=== PATIENT | male | born 1960 | race Caucasian/White ===

== ENCOUNTER 2021-12-15 14:00 | Observation (INO) ==
[2021-12-15] MEDS ORDERED: NS 1,000 ML IV 1,000 ML IV ONE (15:15)
[2021-12-15 15:20] VITALS: BMI 34.0
[2021-12-15 15:32] LABS: BASOPHILS % (AUTO) 0 % (0.2-1.0); EOSINOPHILS % (AUTO) 0.1 % (0.9-2.9); HEMATOCRIT 37.3 % (42.0-54.0); HEMOGLOBIN 13.3 g/dL (13.5-18.0); LYMPHOCYTES # (AUTO) 1.3 X10^3/uL (1.3-2.9); LYMPHOCYTES % (AUTO) 7.3 % (21.0-51.0); MEAN CORPUSCULAR HEMOGLOBIN 34.7 pg (27.0-34.0); MEAN CORPUSCULAR HGB CONC 35.6 g/dL (33.0-35.0); MEAN CORPUSCULAR VOLUME 97.5 fL (80.0-100.0); MEAN PLATELET VOLUME 8.6 fL (7.4-11.0); MONOCYTES # (AUTO) 0.8 x10^3/uL (0.3-0.8); MONOCYTES % (AUTO) 4.7 % (0.0-13.0); NEUTROPHILS # (AUTO) 15.3 x10^3/uL (2.2-4.8); NEUTROPHILS % (AUTO) 87.9 % (42.0-75.0); RED BLOOD COUNT 3.83 X10^6/uL (4.7-6.0); RED CELL DISTRIBUTION WIDTH 13.7 % (11.6-16.5); WHITE BLOOD COUNT 17.4 X10^3/uL (3.6-10.0)
[2021-12-15] MEDS ORDERED: TYLENOL 500 MG TAB EXTRA STRENGTH PO ONE ×2 (15:36→15:42)
--- NOTE | 2021-12-15 15:41 | DR.FEVERAD ---
HPI Time seen Time Seen by Provider: 12/15/21 14:15 PCP Primary Care Physician: Cristo GUIDO Complaints/Symptoms Chief Complaint Doctor Comments: 61 y/o male brought in via EMS for evaluation. Has a h/o chronic lower ext edema, worsened of the RLE last pm. + swelling, erythema and pain. Pain is dull, constant, does not radiate. Worse with movement and palpation. Nothing makes it better. Denies recent injury. Associated with fever, chills, generalized weakness. Denies cough, dyspnea, nausea or vomiting. Chief Complaint:: PT C/O FEVER, CHILLS, AND SWELLING ALL OVER AND TO HIS LOWER EXT. EDEMA NOTED TO LOWER EXT BILAT AND CELLULITIS TO RLE. PATIENT WENT TO SEE PCP 9 DAYS AGO FOR HIS SWELLING. PT IS NOTED TO BE SHIVERING. COVID-19 Coronavirus risk:travel/contact w/high risk person: No Has patient experienced Coronavirus symptoms: Yes Coronavirus symptoms experienced: Fever and Shortness of Breath Nurses notes reviewed Nurses Notes Review: Yes Source History Provided: Patient and EMS Mode of Arrival Mode of Arrival: EMS Timing Onset of Chief Complaint: 12/06/21 PMH PMH Past Medical History: Yes Past Medical History: Diabetes and Hypertension Past Surgical History: Yes Surgical History: Ortho Surgery Family History History of Family Medical Conditions: Yes Family Medical History: Diabetes Mellitus Social History Does patient currently use any type of tobacco product: Yes Have you used tobacco products in the last 12 months: Yes Type of Tobacco Use: Cigarettes Do you use any recreational Drugs:: No Lives With: Family Lives Where: Home Travel Risk Coronavirus risk:travel/contact w/high risk person: No Has patient experienced Coronavirus symptoms: Yes Coronavirus symptoms experienced: Fever and Shortness of Breath Infectious screening In the last 2 months have you had wt loss of >10#?: NO Have you had fever, night sweats or hemotysis?: No Have you traveled outside the country in the last 6 months?: No Isolation: Standard ROS Review of Systems Constitutional: Chills, Fever and Weakness Eyes: No Symptoms Reported ENTM: No Symptoms Reported Respiratoy: No Symptoms Reported Cardiovascular: No Symptoms Reported Gastrointestinal/Abdominal: No Symptoms Reported Genitourinary: No Symptoms Reported Neurological: No Symptoms Reported Musculoskeletal: See HPI Integumentary: See HPI Hematologic/Lymphatic: No Symptoms Reported Psychiatric: No Symptoms Reported All Other Systems: Reviewed and Negative PE Vital Signs Vitals: Temperature 100.3 F Pulse Rate [Right Radial] 108 Pulse Rate 92 Respiratory Rate 22 Blood Pressure [Right Arm] 146/65 Blood Pressure [Left Arm] 114/73 Blood Pressure 141/65 O2 Sat by Pulse Oximetry 94 General General Appearance: Alert and In No Apparent Distress Head Head Exam: Normal Inspection Eyes Eye exam: PERRL and EOMI ENT ENT Exam: Mucous Membranes Moist Neck Neck Exam: Normal Inspection; negative Tenderness Respiratory Respiratory Exam: Normal Lung Sounds Bilat; negative Accessory Muscle Use or Respiratory Distress Cardiovascular Cardiovascular Exam: Regular Rate, Normal Rhythm and Normal Heart Sounds Abdominal Exam Abdominal Exam: Normal Inspection, Normal Bowel Sounds and Soft; negative Tenderness Extremities Extremities Exam: Edema (of RLE diffusely, with erythema and tenderness. + 2+ edema. Distal NV intact. ) Back Back Exam: Normal Inspection; negative Tenderness Neurologic Neurological Exam: Alert, Oriented X3 and CN II-XII Intact; negative Motor Sensory Deficit Psychiatric Psychiatric Exam: Normal Affect Skin Skin Exam: Warm, Dry and Erythema (of RLE below the knee, diffusely) MDM Differential Diagnosis Differential Diagnosis: Sepsis (cellulitis, DVT) COURSE Treatment Treatment: 61 y/o with fever, chills and apparent RLE cellulitis, since yesterday. W/u initiiated. Given IV fluids, PO Tylenol. Will start IV Zosyn after cultures obtained. 1702 - WBC elevated, 17.4K. CMP acceptable, potassium slightly low at 3.4. Lactic acid 1.9. CXR - with some increased markings,no definitive pneumonia. Covid negative. Pt with rapidly worsening cellulitis of the RLE, recommend admission. Discussed with Dr Simon, accepts the admission. Will treat with Zosyn, Vancomycin. ROR Labs Reviewed Result Diagrams: 12/15/21 14:57 12/15/21 14:57 Laboratory: WBC 17.4 X10^3/uL (3.6-10.0) H 12/15/21 14:57 RBC 3.83 X10^6/uL (4.7-6.0) L 12/15/21 14:57 Hgb 13.3 g/dL (13.5-18.0) L 12/15/21 14:57 Hct 37.3 % (42.0-54.0) L 12/15/21 14:57 MCV 97.5 fL (80.0-100.0) 12/15/21 14:57 MCH 34.7 pg (27.0-34.0) H 12/15/21 14:57 MCHC 35.6 g/dL (33.0-35.0) H 12/15/21 14:57 RDW 13.7 % (11.6-16.5) 12/15/21 14:57 Plt Count 89 X10^3/uL (150.0-450.0) L 12/15/21 14:57 MPV 8.6 fL (7.4-11.0) 12/15/21 14:57 Neut % (Auto) 87.9 % (42.0-75.0) H 12/15/21 14:57 Lymph % (Auto) 7.3 % (21.0-51.0) L 12/15/21 14:57 [place] % (Auto) 4.7 % (0.0-13.0) 12/15/21 14:57 Eos % (Auto) 0.1 % (0.9-2.9) L 12/15/21 14:57 Baso % (Auto) 0 % (0.2-1.0) L 12/15/21 14:57 Neut # (Auto) 15.3 x10^3/uL (2.2-4.8) H 12/15/21 14:57 Lymph # (Auto) 1.3 X10^3/uL (1.3-2.9) 12/15/21 14:57 [place] # (Auto) 0.8 x10^3/uL (0.3-0.8) 12/15/21 14:57 Eos # (Auto) 0.0 x10^3/uL (0.0-0.2) 12/15/21 14:57 Baso # (Auto) 0.0 X10^3/uL (0.0-0.1) 12/15/21 14:57 Absolute Nucleated RBC 0.0 /100WBC 12/15/21 14:57 Sodium 138 mmol/L (136-145) 12/15/21 14:57 Corrected Sodium 138 mmol/L (136-145) 12/15/21 14:57 Potassium 3.4 mmol/L (3.5-5.1) L 12/15/21 14:57 Chloride 104 mmol/L (98-107) 12/15/21 14:57 Carbon Dioxide 25.4 mmol/L (21-32) 12/15/21 14:57 BUN 11 mg/dL (7-18) 12/15/21 14:57 Creatinine 1.14 mg/dL (0.70-1.30) 12/15/21 14:57 Est GFR (MDRD) Af Amer > 60 (>60) 12/15/21 14:57 Est GFR (MDRD) Non-Af > 60 (>60) 12/15/21 14:57 Glucose 117 mg/dL (65-99) H 12/15/21 14:57 Lactic Acid 1.9 mmol/L (0.4-2.0) 12/15/21 14:57 Calcium 8.2 mg/dL (8.5-10.1) L 12/15/21 14:57 Corrected Calcium 9.2 mg/dL (8.5-10.1) 12/15/21 14:57 Total Bilirubin 2.00 mg/dL (0.2-1.0) H 12/15/21 14:57 AST 108 Units/L (15-37) H 12/15/21 14:57 ALT 75 Units/L (12-78) 12/15/21 14:57 Alkaline Phosphatase 103 Units/L (46-116) 12/15/21 14:57 Total Protein 6.1 g/dL (6.4-8.2) L 12/15/21 14:57 Albumin 2.7 g/dL (3.4-5.0) L 12/15/21 14:57 Globulin 3.4 g/dL (2.5-4.5) 12/15/21 14:57 Albumin/Globulin Ratio 0.8 Ratio (1.1-2.1) L 12/15/21 14:57 SARS-CoV-2 (PCR) Negative (NEGATIVE) 12/15/21 14:29 Influenza Type A (PCR) Negative (NEGATIVE) 12/15/21 14:29 Influenza Type B (PCR) Negative (NEGATIVE) 12/15/21 14:29 RSV (PCR) Negative (NEGATIVE) 12/15/21 14:29 Opioid Opioid Risk Tool Age (Topher box if 16-45): No History of Preadolescent Sexual Abuse: No Total: 0 Total Score Risk Category: Low Risk Copyright: Desmond BOWLING predicting aberrant behaviors Discharge Plan Diagnosis Discharge Problem: Cellulitis of right lower extremity Discharge Plan Patient Disposition: 01 HOME, SELF-CARE Condition: Stable Prescriptions: No Action furosemide 40 mg tablet 1 tab PO QDAY meloxicam 15 mg tablet 1 tab PO QDAY potassium chloride 20 mEq tablet extended release 1 tab PO QDAY Health Concerns: Post Hospitalization: new medications and changes needed to prevent readmission or further decline. Pt educated and given instructions on all concerns. Plan of Treatment: Continue with present treatment and follow up plan. Pt is to keep follow up appointment as instructed and take medications as ordered. Orders to Discharge Patient Discharge Orders: Discharge (Routine); Ordered 12/15/21 Ordered By: Kolton Chappell Transfer (Routine); Ordered 12/15/21 Ordered By: Kolton Chappell Follow ups/Referrals Follow ups/Referrals: YONNY SIMON [Primary Care Provider] - 3 days Instructions Stand Alone Forms: Precautions for COVID19, [facility], Patient Portal, Social Distancing
[2021-12-15] MEDS ORDERED: ZOSYN VIAL 2.25 GRAMS 2.25 G in NS 100 ML IV 100 ML IV SCH (15:42)
[2021-12-15 15:43] LABS: ALANINE AMINOTRANSFERASE 75 Units/L (12-78); ALBUMIN 2.7 g/dL (3.4-5.0); ALKALINE PHOSPHATASE 103 Units/L (46-116); ASPARTATE AMINO TRANSFERASE 108 Units/L (15-37); BLOOD UREA NITROGEN 11 mg/dL (7-18); CALCIUM 8.2 mg/dL (8.5-10.1); CARBON DIOXIDE 25.4 mmol/L (21-32); CHLORIDE 104 mmol/L (98-107); COR CA(FOR HYPOALB) 9.2 mg/dL (8.5-10.1); COR NA(FOR HYPERGLY) 138 mmol/L (136-145); CREATININE 1.14 mg/dL (0.70-1.30); SODIUM 138 mmol/L (136-145); TOTAL PROTEIN 6.1 g/dL (6.4-8.2); eGFR NON BLACK RACES > 60 (>60)
[2021-12-15] MEDS ORDERED: NS 100 ML IV 100 ML ONE (15:45)
[2021-12-15] MEDS ORDERED: ZOSYN VIAL 3.375 GRAMS IV ONE (15:45)
--- NOTE | 2021-12-15 16:03 | VAS ---
HISTORYRight leg edemaSTUDYLOWER EXT VENOUS, UNILATERALCOMPARISONNo relevant prior studies available.TECHNIQUEGrayscale and color Doppler images of the right lower extremity.FINDINGSCommon femoral, femoral, popliteal and posterior tibial veins demonstrate normal compressibility, color Doppler flow, waveforms and augmentation with no filling defects.Soft tissues: Reactive appearing lymph node in the right inguinal region measuring 1.5 cm in short axis. Edema in the distal subcutaneous soft tissues.IMPRESSIONNo evidence of deep venous thrombus.Electronically signed by: Nahum Hansen (Dec 15, 2021 16:02:18)
--- NOTE | 2021-12-15 16:14 | RAD ---
HISTORYSOBSTUDYCHEST, 1 VIEWCOMPARISONNone availableTECHNIQUEChest radiographic imaging, AP portable projection, 1 imageFINDINGSNo cardiomegaly.No focal airspace disease.Bronchovascular crowding in the hilar regions.Mild diffuse increased interstitial markings.No pleural effusion.No pneumothorax.No acute osseous abnormality.IMPRESSIONBronchovascular crowding in the hilar regions and diffuse increased interstitial markings could represent the sequela of an atypical/viral infectious process or chronic interstitial changes. No focal consolidation.Electronically signed by: Nahum Hansen (Dec 15, 2021 16:13:13)
--- NOTE | 2021-12-15 16:55 | RAD ---
HISTORYLOWER LEG PAIN & SWELLINGSTUDYLOWER LEG, TIB/FIB RIGHTCOMPARISONNoneFINDINGSAP and lateral radiographs of the lower extremity demonstrate no evidence for acute cortical disruption. Remote proximal tibial and fibular deformities. Edema surrounding the calf.IMPRESSIONNo acute fracture.Electronically signed by: MORIAH RAMOS (Dec 15, 2021 16:53:21)
[2021-12-15] MEDS ORDERED: VANCOMYCIN IV *PREMIX 1 G/200 ML BAG 1 G/200 ML PIGGYBACK IV SCH (17:06)
[2021-12-15] MEDS ORDERED: VANCOMYCIN IV *PREMIX 1.25 G/250 ML BAG 1.25 G/250 ML PIGGYBACK IV SCH (20:00)
[2021-12-15] MEDS: NS 1,000 ML IV 1,000 ML IV SCH (20:26)
[2021-12-15] MEDS: VANCOMYCIN IV *PREMIX 1.25 G/250 ML BAG 1.25 G/250 ML PIGGYBACK IV SCH (20:26)
[2021-12-15] MEDS ORDERED: ZOSYN VIAL 3.375 GRAMS 3.375 G in NS 100 ML IV 100 ML IV SCH (22:00)
[2021-12-15] MEDS: ZOSYN VIAL 2.25 GRAMS 2.25 G in NS 100 ML IV 100 ML IV SCH (23:09)
[2021-12-16 05:27] LABS: BASOPHILS % (AUTO) 0.2 % (0.2-1.0); EOSINOPHILS # (AUTO) 0.1 x10^3/uL (0.0-0.2); EOSINOPHILS % (AUTO) 1.2 % (0.9-2.9); HEMATOCRIT 33.1 % (42.0-54.0); HEMOGLOBIN 11.9 g/dL (13.5-18.0); LYMPHOCYTES # (AUTO) 1.3 X10^3/uL (1.3-2.9); LYMPHOCYTES % (AUTO) 11.8 % (21.0-51.0); MEAN CORPUSCULAR HEMOGLOBIN 34.7 pg (27.0-34.0); MEAN CORPUSCULAR HGB CONC 35.9 g/dL (33.0-35.0); MEAN CORPUSCULAR VOLUME 96.4 fL (80.0-100.0); MEAN PLATELET VOLUME 8.9 fL (7.4-11.0); MONOCYTES # (AUTO) 0.7 x10^3/uL (0.3-0.8); MONOCYTES % (AUTO) 6.2 % (0.0-13.0); NEUTROPHILS # (AUTO) 9.1 x10^3/uL (2.2-4.8); NEUTROPHILS % (AUTO) 80.6 % (42.0-75.0); RED BLOOD COUNT 3.43 X10^6/uL (4.7-6.0); RED CELL DISTRIBUTION WIDTH 13.8 % (11.6-16.5); WHITE BLOOD COUNT 11.3 X10^3/uL (3.6-10.0)
[2021-12-16] MEDS: ZOSYN VIAL 2.25 GRAMS 2.25 G in NS 100 ML IV 100 ML IV SCH ×3 (05:33→21:22)
[2021-12-16 05:36] LABS: ALANINE AMINOTRANSFERASE 64 Units/L (12-78); ALBUMIN 2.3 g/dL (3.4-5.0); ALKALINE PHOSPHATASE 86 Units/L (46-116); ASPARTATE AMINO TRANSFERASE 94 Units/L (15-37); BLOOD UREA NITROGEN 12 mg/dL (7-18); CALCIUM 7.9 mg/dL (8.5-10.1); CARBON DIOXIDE 25.8 mmol/L (21-32); CHLORIDE 106 mmol/L (98-107); COR CA(FOR HYPOALB) 9.3 mg/dL (8.5-10.1); CREATININE 1.13 mg/dL (0.70-1.30); SODIUM 139 mmol/L (136-145); TOTAL PROTEIN 5.3 g/dL (6.4-8.2); eGFR NON BLACK RACES > 60 (>60)
[2021-12-16] MEDS: K-DUR TAB 20 MEQ PO SCH (09:25)
[2021-12-16] MEDS: VANCOMYCIN IV *PREMIX 1.25 G/250 ML BAG 1.25 G/250 ML PIGGYBACK IV SCH (09:26)
[2021-12-16] MEDS: LASIX PO SCH (09:26)
[2021-12-16] MEDS: MOBIC TAB 15 MG PO SCH (09:26)
[2021-12-16] MEDS: NS 1,000 ML IV 1,000 ML IV SCH ×2 (09:49→21:11)
[2021-12-16] MEDS: CLEOCIN 600 MG IV PREMIX 600 MG/50 ML BAG IV SCH ×3 (12:19→21:03)
[2021-12-16] MEDS ORDERED: D5W 1,000 ML IV 1,000 ML IV PRN (16:24)
[2021-12-16] MEDS ORDERED: D5W 1,000 ML IV 1,000 ML IV ONE (16:37)
[2021-12-16] MEDS ORDERED: GLUCOPHAGE XR 24-HR PO SCH (21:00)
[2021-12-17] MEDS: NS 1,000 ML IV 1,000 ML IV SCH ×3 (03:01→22:00)
[2021-12-17] MEDS: CLEOCIN 600 MG IV PREMIX 600 MG/50 ML BAG IV SCH ×3 (05:26→21:37)
[2021-12-17 05:36] LABS: BASOPHILS % (AUTO) 0.3 % (0.2-1.0); EOSINOPHILS # (AUTO) 0.2 x10^3/uL (0.0-0.2); HEMATOCRIT 31.4 % (42.0-54.0); HEMOGLOBIN 11.4 g/dL (13.5-18.0); LYMPHOCYTES # (AUTO) 1.1 X10^3/uL (1.3-2.9); LYMPHOCYTES % (AUTO) 13.8 % (21.0-51.0); MEAN CORPUSCULAR HEMOGLOBIN 34.8 pg (27.0-34.0); MEAN CORPUSCULAR HGB CONC 36.4 g/dL (33.0-35.0); MEAN CORPUSCULAR VOLUME 95.7 fL (80.0-100.0); MEAN PLATELET VOLUME 8.9 fL (7.4-11.0); MONOCYTES # (AUTO) 0.7 x10^3/uL (0.3-0.8); MONOCYTES % (AUTO) 7.9 % (0.0-13.0); NEUTROPHILS # (AUTO) 6.3 x10^3/uL (2.2-4.8); RED BLOOD COUNT 3.28 X10^6/uL (4.7-6.0); RED CELL DISTRIBUTION WIDTH 13.8 % (11.6-16.5); WHITE BLOOD COUNT 8.3 X10^3/uL (3.6-10.0)
[2021-12-17 05:39] LABS: ALANINE AMINOTRANSFERASE 48 Units/L (12-78); ALKALINE PHOSPHATASE 85 Units/L (46-116); ASPARTATE AMINO TRANSFERASE 65 Units/L (15-37); BLOOD UREA NITROGEN 13 mg/dL (7-18); CALCIUM 7.6 mg/dL (8.5-10.1); CARBON DIOXIDE 24.1 mmol/L (21-32); CHLORIDE 107 mmol/L (98-107); COR CA(FOR HYPOALB) 9.2 mg/dL (8.5-10.1); COR NA(FOR HYPERGLY) 138 mmol/L (136-145); CREATININE 1.01 mg/dL (0.70-1.30); SODIUM 137 mmol/L (136-145); eGFR NON BLACK RACES > 60 (>60)
[2021-12-17] MEDS: ZOSYN VIAL 2.25 GRAMS 2.25 G in NS 100 ML IV 100 ML IV SCH ×3 (06:30→22:27)
[2021-12-17] MEDS ORDERED: KLOR-CON PO PRN (07:45)
[2021-12-17] MEDS ORDERED: K-RIDER 10 MEQ/NS 100 ML 10 MEQ/100 ML BAG IV PRN (07:45)
[2021-12-17] MEDS ORDERED: POTASSIUM CHL 60 MEQ/NS 0.45% 500 ML IV PRN (07:45)
[2021-12-17] MEDS ORDERED: POTASSIUM CHL 40 MEQ/NS 0.45% 500 ML IV PRN (07:45)
[2021-12-17] MEDS ORDERED: K-DUR TAB 20 MEQ PO PRN (07:45)
[2021-12-17] MEDS ORDERED: MICRO K EXTEN CAP 10 MEQ PO PRN (07:45)
[2021-12-17] MEDS ORDERED: POTASSIUM CHLORIDE LIQ 20 MEQ UDC PO PRN (07:45)
[2021-12-17] MEDS ORDERED: PHARMACY COMMENT IV SCH (08:00)
[2021-12-17] MEDS: LASIX PO SCH (08:23)
[2021-12-17] MEDS: K-DUR TAB 20 MEQ PO SCH (08:23)
[2021-12-17] MEDS: MOBIC TAB 15 MG PO SCH (08:24)
[2021-12-17] MEDS ORDERED: PHARMACY COMMENT IV NR (08:30)
[2021-12-17] MEDS ORDERED: MAGNESIUM SULFATE 1 GRAM/100 mL PREMIX 1 G/100 ML BAG IV ONE (18:30)
[2021-12-17] MEDS: MAGNESIUM SULFATE 1 GRAM/100 mL PREMIX 1 G/100 ML BAG IV PRN (18:31)
[2021-12-18] MEDS: MAGNESIUM SULFATE 1 GRAM/100 mL PREMIX 1 G/100 ML BAG IV PRN (03:22)
[2021-12-18] MEDS: CLEOCIN 600 MG IV PREMIX 600 MG/50 ML BAG IV SCH (05:01)
[2021-12-18 05:13] LABS: BASOPHILS # (AUTO) 0.2 X10^3/uL (0.0-0.1); BASOPHILS % (AUTO) 3.8 % (0.2-1.0); EOSINOPHILS # (AUTO) 0.2 x10^3/uL (0.0-0.2); HEMATOCRIT 31.9 % (42.0-54.0); HEMOGLOBIN 11.7 g/dL (13.5-18.0); LYMPHOCYTES # (AUTO) 0.8 X10^3/uL (1.3-2.9); LYMPHOCYTES % (AUTO) 15.1 % (21.0-51.0); MEAN CORPUSCULAR HEMOGLOBIN 35.2 pg (27.0-34.0); MEAN CORPUSCULAR HGB CONC 36.7 g/dL (33.0-35.0); MEAN CORPUSCULAR VOLUME 95.8 fL (80.0-100.0); MEAN PLATELET VOLUME 8.7 fL (7.4-11.0); MONOCYTES # (AUTO) 0.5 x10^3/uL (0.3-0.8); MONOCYTES % (AUTO) 10.2 % (0.0-13.0); NEUTROPHILS # (AUTO) 3.5 x10^3/uL (2.2-4.8); NEUTROPHILS % (AUTO) 66.9 % (42.0-75.0); RED BLOOD COUNT 3.32 X10^6/uL (4.7-6.0); RED CELL DISTRIBUTION WIDTH 14.1 % (11.6-16.5); WHITE BLOOD COUNT 5.3 X10^3/uL (3.6-10.0)
[2021-12-18 05:22] LABS: ALANINE AMINOTRANSFERASE 39 Units/L (12-78); ALKALINE PHOSPHATASE 84 Units/L (46-116); ASPARTATE AMINO TRANSFERASE 59 Units/L (15-37); BLOOD UREA NITROGEN 12 mg/dL (7-18); CALCIUM 7.4 mg/dL (8.5-10.1); CARBON DIOXIDE 24.3 mmol/L (21-32); CHLORIDE 107 mmol/L (98-107); CREATININE 0.92 mg/dL (0.70-1.30); SODIUM 138 mmol/L (136-145); TOTAL PROTEIN 5.1 g/dL (6.4-8.2); eGFR NON BLACK RACES > 60 (>60)
[2021-12-18] MEDS: ZOSYN VIAL 2.25 GRAMS 2.25 G in NS 100 ML IV 100 ML IV SCH (05:45)
[2021-12-18] MEDS: K-DUR TAB 20 MEQ PO SCH (07:59)
[2021-12-18] MEDS: LASIX PO SCH (07:59)
[2021-12-18] MEDS: MOBIC TAB 15 MG PO SCH (08:00)
[2021-12-18] MEDS ORDERED: PHARMACY CONSULT - VANCOMYCIN XX SCH (10:00)
[2021-12-18] MEDS ORDERED: VANCOMYCIN IV *PREMIX 1.25 G/250 ML BAG 1.25 G/250 ML PIGGYBACK IV SCH (10:00)
[2021-12-18] MEDS: VANCOMYCIN IV *PREMIX 1.75 G/350 ML BAG 1.75 G/350 ML PIGGYBACK IV SCH ×2 (10:42→20:08)
--- NOTE | 2021-12-18 10:56 | PCM.PROG ---
Progress Note - Progress Note for Day of Date of Exam: 12/17/21 - Subjective Subjective: IS A 61 YEAR OLD PATIENT OF . HE IS CURRENTLY OBSERVATION STATUS FOR TREATMENT OF RIGHT LOWER EXTREMITY CELLULITIS. HE HAS HAD AN UNEVENTFUL NIGHT. HE COMPLAINTS OF MILD PAIN TO RIGHT LOWER LEG THIS MORNING. ON EXAMINATION, HEART IS REGULAR IN RATE AND RHYTHM. BILATERAL LUNGS ARE NOTED WITH DIMINISHED LUNG SOUNDS THROUGHOUT. ABDOMEN IS ROUND, SOFT, AND NON-TENDER WITH NORMAL BOWEL SOUNDS NOTED IN ALL QUADRANTS. RIGHT LOWER EXTREMITY IS NOTED WITH ERYTHEMA AND NON-PITTING EDEMA. HIS VITALS THIS MORNING ARE: 100.2-83-18-97%-152/73. LABS WERE OBTAINED. WBC 8.3, RBC 3.28, HGB 11.4, HCT 31.4, PLT COUNT 72, SODIUM 137, POTASSIUM 3.5, CHLORIDE 107, BUN 13, CREATININE 1.01, GLUCOSE 127, CALCIUM 7.6, MAGNESIUM 1.6, TOTAL BILI 1.20, AST 65, ALT 48, ALK PHOS 85, TOTAL PROTEIN 5.0, ALBUMIN 2.0. BLOOD CULTURES ARE PENDING. HE IS CURRENTLY RECEIVING NORMAL SALINE AT 80 ML/HR, VANCOMYCIN 1.75G IV Q12H, MOBIC 15MG PO DAILY, AND THE POTASSIUM AND MAGNESIUM PROTOCOLS. WE WILL CONTINUE WITH CURRENT PLAN OF CARE TODAY. OTHERWISE, WE WILL FOLLOW-UP WITH AM LABS AND CONTINUE TO MONITOR. TIME SPENT ON CLINICAL ASSESSMENT, REVIEWING LABS AND IMAGING, DECISION MAKING, AND DOCUMENTATION GREATER THAN 45 MINUTES. - Past Medical Family Social History Past Med/Fam/Surg Hx: No changes since H&P Allergies: Allergies No Known Drug Allergies Allergy (Verified 12/15/21 18:25) - Review of Systems ROS: No change since H&P - Vital Signs and I&O's Vital Signs: Temperature 98.5 F Pulse Rate [Right Radial] 85 Pulse Rate 87 Respiratory Rate 20 Blood Pressure [Right Arm] 117/62 Blood Pressure [Left Arm] 114/73 Blood Pressure 141/61 O2 Sat by Pulse Oximetry 97 Intake and Output: Intake & Output 12/15/21 12/16/21 12/17/21 12/18/21 11:59 11:59 11:59 11:59 Intake Total 1318 / 1318 2772 / 2772 2841 / 2841 Output Total 875 / 875 1500 / 1500 1150 / 1150 Balance 443 / 443 1272 / 1272 1691 / 1691 - Physical Exam Oriented: Normal Eyes: Normal Ear: Normal Nose: Normal Throat: Normal Respiratory: Diminished Cardiovascular: Normal : Normal Auscultation: Bowel Sounds: Normal Palpation: Normal Tenderness: Normal Skin: Red (RIGHT LOWER LEG ), Tender, Hot Musculoskeletal: Right, Leg, Swelling, Tender Psychiatric: Normal Mood Description: Calm Affect: Normal Speech Pattern: Clear, Delayed - Laboratory and Diagnostics Result Diagrams: 12/18/21 04:45 12/18/21 04:45 Labs: 12/15/21 14:57 Blood Blood Culture - Final Staphylococcus Aureus 12/15/21 15:10 Blood Blood Culture - Final Staphylococcus Aureus Laboratory WBC 5.3 X10^3/uL (3.6-10.0) 12/18/21 04:45 RBC 3.32 X10^6/uL (4.7-6.0) L 12/18/21 04:45 Hgb 11.7 g/dL (13.5-18.0) L 12/18/21 04:45 Hct 31.9 % (42.0-54.0) L 12/18/21 04:45 MCV 95.8 fL (80.0-100.0) 12/18/21 04:45 MCH 35.2 pg (27.0-34.0) H 12/18/21 04:45 MCHC 36.7 g/dL (33.0-35.0) H 12/18/21 04:45 RDW 14.1 % (11.6-16.5) 12/18/21 04:45 Plt Count 72 X10^3/uL (150.0-450.0) L 12/18/21 04:45 MPV 8.7 fL (7.4-11.0) 12/18/21 04:45 Neut % (Auto) 66.9 % (42.0-75.0) 12/18/21 04:45 Lymph % (Auto) 15.1 % (21.0-51.0) L 12/18/21 04:45 [place] % (Auto) 10.2 % (0.0-13.0) 12/18/21 04:45 Eos % (Auto) 4.0 % (0.9-2.9) H 12/18/21 04:45 Baso % (Auto) 3.8 % (0.2-1.0) H 12/18/21 04:45 Neut # (Auto) 3.5 x10^3/uL (2.2-4.8) 12/18/21 04:45 Lymph # (Auto) 0.8 X10^3/uL (1.3-2.9) L 12/18/21 04:45 [place] # (Auto) 0.5 x10^3/uL (0.3-0.8) 12/18/21 04:45 Eos # (Auto) 0.2 x10^3/uL (0.0-0.2) 12/18/21 04:45 Baso # (Auto) 0.2 X10^3/uL (0.0-0.1) H 12/18/21 04:45 Absolute Nucleated RBC 0.0 /100WBC 12/18/21 04:45 Sodium 138 mmol/L (136-145) 12/18/21 04:45 Corrected Sodium TNP 12/18/21 04:45 Potassium 3.3 mmol/L (3.5-5.1) L 12/18/21 04:45 Chloride 107 mmol/L (98-107) 12/18/21 04:45 Carbon Dioxide 24.3 mmol/L (21-32) 12/18/21 04:45 BUN 12 mg/dL (7-18) 12/18/21 04:45 Creatinine 0.92 mg/dL (0.70-1.30) 12/18/21 04:45 Est GFR (MDRD) Af Amer > 60 (>60) 12/18/21 04:45 Est GFR (MDRD) Non-Af > 60 (>60) 12/18/21 04:45 Glucose 103 mg/dL (65-99) H 12/18/21 04:45 POC Glucose (mg/dL) 95 mg/dL (65-99) 12/17/21 19:31 Lactic Acid 1.9 mmol/L (0.4-2.0) 12/15/21 14:57 Calcium 7.4 mg/dL (8.5-10.1) L 12/18/21 04:45 Corrected Calcium 9.0 mg/dL (8.5-10.1) 12/18/21 04:45 Magnesium 2.0 mg/dL (1.7-2.9) 12/18/21 04:45 Total Bilirubin 1.30 mg/dL (0.2-1.0) H 12/18/21 04:45 AST 59 Units/L (15-37) H 12/18/21 04:45 ALT 39 Units/L (12-78) 12/18/21 04:45 Alkaline Phosphatase 84 Units/L (46-116) 12/18/21 04:45 Total Protein 5.1 g/dL (6.4-8.2) L 12/18/21 04:45 Albumin 2.0 g/dL (3.4-5.0) L 12/18/21 04:45 Globulin 3.1 g/dL (2.5-4.5) 12/18/21 04:45 Albumin/Globulin Ratio 0.6 Ratio (1.1-2.1) L 12/18/21 04:45 SARS-CoV-2 (PCR) Negative (NEGATIVE) 12/15/21 14:29 Influenza Type A (PCR) Negative (NEGATIVE) 12/15/21 14:29 Influenza Type B (PCR) Negative (NEGATIVE) 12/15/21 14:29 RSV (PCR) Negative (NEGATIVE) 12/15/21 14:29 - Plan (1) Cellulitis of right lower extremity Status: Acute Plan: NORMAL SALINE AT 80 ML/HR, VANCOMYCIN 1.75G IV Q12H, MOBIC 15MG PO DAILY, AND THE POTASSIUM AND MAGNESIUM PROTOCOLS.
--- NOTE | 2021-12-18 11:04 | PCM.PROG ---
Progress Note - Progress Note for Day of Date of Exam: 12/18/21 - Subjective Subjective: IS A 61 YEAR OLD PATIENT OF . HE IS CURRENTLY OBSERVATION STATUS FOR TREATMENT OF RIGHT LOWER EXTREMITY CELLULITIS. HE HAS HAD AN UNEVENTFUL NIGHT. HE COMPLAINTS OF MILD PAIN TO RIGHT LOWER LEG THIS MORNING. ON EXAMINATION, HEART IS REGULAR IN RATE AND RHYTHM. BILATERAL LUNGS ARE NOTED WITH DIMINISHED LUNG SOUNDS THROUGHOUT. ABDOMEN IS ROUND, SOFT, AND NON-TENDER WITH NORMAL BOWEL SOUNDS NOTED IN ALL QUADRANTS. RIGHT LOWER EXTREMITY IS NOTED WITH ERYTHEMA AND NON-PITTING EDEMA. HIS VITALS THIS MORNING ARE: 98.5-85-20-97%-117/62. LABS WERE OBTAINED. WBC 5.3, RBC 3.32, HGB 11.7, HCT 31.9, SODIUM 138, POTASSIUM 3.3, BUN 12, CREATININE 0.92, GLUCOSE 103, CALCIUM 7.4, TOTAL BILIRUBIN 1.30, AST 59, ALT 39, ALK PHOS 84, TOTAL PROTEIN 5.1, ALBUMIN 2.0. BLOOD CULTURES ARE POSTITIVE FOR GROWTH OF STAPHYLOCOCCUS AUREUS. HE IS CURRENTLY RECEIVING NORMAL SALINE AT 80 ML/HR, VANCOMYCIN 1.75G IV Q12H, MOBIC 15MG PO DAILY, AND THE POTASSIUM AND MAGNESIUM PROTOCOLS. WE WILL CONTINUE WITH CURRENT PLAN OF CARE TODAY. OTHERWISE, WE WILL FOLLOW-UP WITH AM LABS AND CONTINUE TO MONITOR. TIME SPENT ON CLINICAL ASSESSMENT, REVIEWING LABS AND IMAGING, DECISION MAKING, AND DOCUMENTATION GREATER THAN 45 MINUTES. - Past Medical Family Social History Past Med/Fam/Surg Hx: No changes since H&P Allergies: Allergies No Known Drug Allergies Allergy (Verified 12/15/21 18:25) - Review of Systems ROS: No change since H&P - Vital Signs and I&O's Vital Signs: Temperature 98.5 F Pulse Rate [Right Radial] 85 Pulse Rate 87 Respiratory Rate 20 Blood Pressure [Right Arm] 117/62 Blood Pressure [Left Arm] 114/73 Blood Pressure 141/61 O2 Sat by Pulse Oximetry 97 Intake and Output: Intake & Output 12/15/21 12/16/21 12/17/21 12/18/21 11:59 11:59 11:59 11:59 Intake Total 1318 / 1318 2772 / 2772 2841 / 2841 Output Total 875 / 875 1500 / 1500 1150 / 1150 Balance 443 / 443 1272 / 1272 1691 / 1691 - Physical Exam Oriented: Normal Eyes: Normal Ear: Normal Nose: Normal Throat: Normal Respiratory: Diminished Cardiovascular: Normal : Normal Auscultation: Bowel Sounds: Normal Palpation: Normal Tenderness: Normal Skin: Red (RIGHT LOWER LEG ), Tender, Hot Musculoskeletal: Right, Leg, Swelling, Tender Psychiatric: Normal Mood Description: Calm Affect: Normal Speech Pattern: Clear, Delayed - Laboratory and Diagnostics Result Diagrams: 12/18/21 04:45 12/18/21 04:45 Labs: 12/15/21 14:57 Blood Blood Culture - Final Staphylococcus Aureus 12/15/21 15:10 Blood Blood Culture - Final Staphylococcus Aureus Laboratory WBC 5.3 X10^3/uL (3.6-10.0) 12/18/21 04:45 RBC 3.32 X10^6/uL (4.7-6.0) L 12/18/21 04:45 Hgb 11.7 g/dL (13.5-18.0) L 12/18/21 04:45 Hct 31.9 % (42.0-54.0) L 12/18/21 04:45 MCV 95.8 fL (80.0-100.0) 12/18/21 04:45 MCH 35.2 pg (27.0-34.0) H 12/18/21 04:45 MCHC 36.7 g/dL (33.0-35.0) H 12/18/21 04:45 RDW 14.1 % (11.6-16.5) 12/18/21 04:45 Plt Count 72 X10^3/uL (150.0-450.0) L 12/18/21 04:45 MPV 8.7 fL (7.4-11.0) 12/18/21 04:45 Neut % (Auto) 66.9 % (42.0-75.0) 12/18/21 04:45 Lymph % (Auto) 15.1 % (21.0-51.0) L 12/18/21 04:45 [place] % (Auto) 10.2 % (0.0-13.0) 12/18/21 04:45 Eos % (Auto) 4.0 % (0.9-2.9) H 12/18/21 04:45 Baso % (Auto) 3.8 % (0.2-1.0) H 12/18/21 04:45 Neut # (Auto) 3.5 x10^3/uL (2.2-4.8) 12/18/21 04:45 Lymph # (Auto) 0.8 X10^3/uL (1.3-2.9) L 12/18/21 04:45 [place] # (Auto) 0.5 x10^3/uL (0.3-0.8) 12/18/21 04:45 Eos # (Auto) 0.2 x10^3/uL (0.0-0.2) 12/18/21 04:45 Baso # (Auto) 0.2 X10^3/uL (0.0-0.1) H 12/18/21 04:45 Absolute Nucleated RBC 0.0 /100WBC 12/18/21 04:45 Sodium 138 mmol/L (136-145) 12/18/21 04:45 Corrected Sodium TNP 12/18/21 04:45 Potassium 3.3 mmol/L (3.5-5.1) L 12/18/21 04:45 Chloride 107 mmol/L (98-107) 12/18/21 04:45 Carbon Dioxide 24.3 mmol/L (21-32) 12/18/21 04:45 BUN 12 mg/dL (7-18) 12/18/21 04:45 Creatinine 0.92 mg/dL (0.70-1.30) 12/18/21 04:45 Est GFR (MDRD) Af Amer > 60 (>60) 12/18/21 04:45 Est GFR (MDRD) Non-Af > 60 (>60) 12/18/21 04:45 Glucose 103 mg/dL (65-99) H 12/18/21 04:45 POC Glucose (mg/dL) 95 mg/dL (65-99) 12/17/21 19:31 Lactic Acid 1.9 mmol/L (0.4-2.0) 12/15/21 14:57 Calcium 7.4 mg/dL (8.5-10.1) L 12/18/21 04:45 Corrected Calcium 9.0 mg/dL (8.5-10.1) 12/18/21 04:45 Magnesium 2.0 mg/dL (1.7-2.9) 12/18/21 04:45 Total Bilirubin 1.30 mg/dL (0.2-1.0) H 12/18/21 04:45 AST 59 Units/L (15-37) H 12/18/21 04:45 ALT 39 Units/L (12-78) 12/18/21 04:45 Alkaline Phosphatase 84 Units/L (46-116) 12/18/21 04:45 Total Protein 5.1 g/dL (6.4-8.2) L 12/18/21 04:45 Albumin 2.0 g/dL (3.4-5.0) L 12/18/21 04:45 Globulin 3.1 g/dL (2.5-4.5) 12/18/21 04:45 Albumin/Globulin Ratio 0.6 Ratio (1.1-2.1) L 12/18/21 04:45 SARS-CoV-2 (PCR) Negative (NEGATIVE) 12/15/21 14:29 Influenza Type A (PCR) Negative (NEGATIVE) 12/15/21 14:29 Influenza Type B (PCR) Negative (NEGATIVE) 12/15/21 14:29 RSV (PCR) Negative (NEGATIVE) 12/15/21 14:29 - Plan (1) Cellulitis of right lower extremity Status: Acute Plan: NORMAL SALINE AT 80 ML/HR, VANCOMYCIN 1.75G IV Q12H, MOBIC 15MG PO DAILY, AND THE POTASSIUM AND MAGNESIUM PROTOCOLS.
[2021-12-18] MEDS: NS 1,000 ML IV 1,000 ML IV SCH (19:02)
[2021-12-19] MEDS: NS 1,000 ML IV 1,000 ML IV SCH (01:36)
[2021-12-19 05:18] LABS: BASOPHILS % (AUTO) 0.4 % (0.2-1.0); EOSINOPHILS # (AUTO) 0.3 x10^3/uL (0.0-0.2); EOSINOPHILS % (AUTO) 5.8 % (0.9-2.9); HEMATOCRIT 34.3 % (42.0-54.0); HEMOGLOBIN 12.5 g/dL (13.5-18.0); LYMPHOCYTES # (AUTO) 1.2 X10^3/uL (1.3-2.9); LYMPHOCYTES % (AUTO) 21.8 % (21.0-51.0); MEAN CORPUSCULAR HEMOGLOBIN 35.3 pg (27.0-34.0); MEAN CORPUSCULAR HGB CONC 36.4 g/dL (33.0-35.0); MEAN CORPUSCULAR VOLUME 97.1 fL (80.0-100.0); MEAN PLATELET VOLUME 8.5 fL (7.4-11.0); MONOCYTES # (AUTO) 0.6 x10^3/uL (0.3-0.8); MONOCYTES % (AUTO) 11.9 % (0.0-13.0); NEUTROPHILS # (AUTO) 3.3 x10^3/uL (2.2-4.8); NEUTROPHILS % (AUTO) 60.1 % (42.0-75.0); RED BLOOD COUNT 3.53 X10^6/uL (4.7-6.0); RED CELL DISTRIBUTION WIDTH 13.6 % (11.6-16.5); WHITE BLOOD COUNT 5.4 X10^3/uL (3.6-10.0)
[2021-12-19 05:23] LABS: ALANINE AMINOTRANSFERASE 43 Units/L (12-78); ALBUMIN 2.1 g/dL (3.4-5.0); ALKALINE PHOSPHATASE 99 Units/L (46-116); ASPARTATE AMINO TRANSFERASE 68 Units/L (15-37); BLOOD UREA NITROGEN 10 mg/dL (7-18); CALCIUM 7.2 mg/dL (8.5-10.1); CARBON DIOXIDE 22.9 mmol/L (21-32); CHLORIDE 108 mmol/L (98-107); COR CA(FOR HYPOALB) 8.7 mg/dL (8.5-10.1); CREATININE 0.81 mg/dL (0.70-1.30); SODIUM 139 mmol/L (136-145); TOTAL PROTEIN 5.5 g/dL (6.4-8.2); eGFR NON BLACK RACES > 60 (>60)
[2021-12-19 08:08] VITALS: BP 133/77
[2021-12-19] MEDS: K-DUR TAB 20 MEQ PO SCH (08:58)
[2021-12-19] MEDS: MOBIC TAB 15 MG PO SCH (08:59)
[2021-12-19] MEDS: VANCOMYCIN IV *PREMIX 1.75 G/350 ML BAG 1.75 G/350 ML PIGGYBACK IV SCH (08:59)
[2021-12-19] MEDS ORDERED: PHARMACY COMMENT IV SCH (20:00)
== END 2021-12-19 13:20 | disposition home or self-care (01) ==
LOC: MED/SURG 14:00 → ER 14:00 → MED/SURG 17:59
PROVIDERS: ADMIT Obstetrics & Gynecology Obstetrics; ATTEND Obstetrics & Gynecology Obstetrics
DX: Z86.19 Personal history of other infectious and parasitic diseases; E11.65 Type 2 diabetes mellitus with hyperglycemia; R79.89 Other specified abnormal findings of blood chemistry; R60.0 Localized edema; A41.01 Sepsis due to Methicillin susceptible Staphylococcus aureus; L03.115 Cellulitis of right lower limb; R06.02 Shortness of breath; Z20.822 Contact with and (suspected) exposure to COVID-19; R26.89 Other abnormalities of gait and mobility; I10 Essential (primary) hypertension

== ENCOUNTER 2022-01-25 13:32 | Inpatient (IN) ==
--- NOTE | 2022-01-25 15:11 | DR.EXTPAIN ---
HPI Time seen Time Seen by Provider: 01/25/22 15:08 PCP Primary Care Physician: ALFRED RYAN Comment HPI Comment: A 61 y/o male presenting with c/o pain and swelling to his Rt. leg since 01/23/22. He has associated fever. Complaint/Symptoms Chief Complaint:: PATIENT C/O RT LEG SWELLING AND PAIN. PATIENT STATES HIS LEG MAKES HIM FEEL BAD ALL OVER COVID-19 Coronavirus risk:travel/contact w/high risk person: Yes Has patient experienced Coronavirus symptoms: Yes Coronavirus symptoms experienced: Fever Nurses notes reviewed Nurses Notes Review: Yes Source History Provided: Patient Mode of arrival Mode of Arrival: Ambulatory Timing Onset of Chief Complaint: 01/23/22 Context History of: None Associated signs and symptoms Associated Signs and Symptoms: Fever and Swelling PMH PMH Past Medical History: Yes Past Medical History: Diabetes and Hypertension Past Surgical History: Yes Surgical History: Other Family History History of Family Medical Conditions: Yes Family Medical History: Diabetes Mellitus Social History Does patient currently use any type of tobacco product: Yes Have you used tobacco products in the last 12 months: Yes Type of Tobacco Use: Cigarettes Does any household member use tobacco: Yes Alcohol Use: None Do you use any recreational Drugs:: No Lives With: Family Lives Where: Home Travel Risk Coronavirus risk:travel/contact w/high risk person: Yes Has patient experienced Coronavirus symptoms: Yes Coronavirus symptoms experienced: Fever Infectious screening In the last 2 months have you had wt loss of >10#?: NO Have you had fever, night sweats or hemotysis?: No Have you traveled outside the country in the last 6 months?: No Isolation: Standard ROS Review of Systems Constitutional: Fever Eyes: No Symptoms Reported ENTM: No Symptoms Reported Respiratoy: No Symptoms Reported Cardiovascular: No Symptoms Reported Gastrointestinal/Abdominal: No Symptoms Reported Genitourinary: No Symptoms Reported Neurological: No Symptoms Reported Musculoskeletal: Leg (swollen RLE) Integumentary: No Symptoms Reported Hematologic/Lymphatic: No Symptoms Reported Endocrine: No Symptoms Reported Psychiatric: No Symptoms Reported All Other Systems: Reviewed and Negative PE Vital Signs Vitals: Temperature 98.5 F Pulse Rate [Left Brachial] 84 Pulse Rate 102 Respiratory Rate 17 Blood Pressure [Right Arm] 124/58 Blood Pressure 128/61 O2 Sat by Pulse Oximetry 100 General Limitations: No Limitations General Appearance: Alert and In No Apparent Distress Head Head Exam: Normal Inspection, Atraumatic and Normocephalic Eyes Eye exam: Normal Appearance and EOMI ENT ENT Exam: Normal Exam, Normal Oropharynx, Normal External Ear Exam and Mucous Membranes Moist Neck Neck Exam: Normal Inspection, Full ROM and Trachea Midline Chest Chest Inspection: Normal Inspection and Symmetric Chest Wall Rise Respiratory Respiratory Exam: Normal Lung Sounds Bilat Cardiovascular Cardiovascular Exam: Regular Rate, Normal Rhythm, Normal Heart Sounds, +S1 and +S2 Abdominal Exam Abdominal Exam: Normal Inspection, Normal Bowel Sounds and Soft Lower Extremities Hip/Pelvis Exam: Normal Inspection and Full ROM Upper Leg Exam: Full ROM, Tenderness (Rt. thigh medially) and Erythema (streak medially, Rt. thigh) Knee Exam: Normal Inspection Lower Leg Exam: Tenderness (Rt. leg), Swelling (both legs, Rt. greater than Left. ), Erythema (Rt. leg), Homans' Sign (positive on Rt. ) and Other (warm to touch, Rt. leg) Ankle Exam: Normal Inspection Foot/Toe Exam: Swelling Back Back Exam: Normal Inspection and Full ROM Neurological Neurological Exam: Alert, Oriented X3 and CN II-XII Intact Psychiatric Psychiatric Exam: Normal Affect and Normal Mood Skin Skin Exam: Dry and Intact COURSE Treatment Treatment: Clinically noted with cellulitis of the RLE and the U/S was negative for DVT. I discussed her presentation and findings with the director of institutional sales Internal Medicine provider. She was admitted on IV antibiotics. Reevaluation 1st: Improved Education/Counseling Education/Counseling: Patient, Education and Counseling Educated On: Treatment, Diagnosis, Prognosis and Needs for Follow Up ROR Labs Reviewed Result Diagrams: 01/25/22 14:50 01/25/22 14:50 Laboratory: WBC 12.5 X10^3/uL (3.6-10.0) H 01/25/22 14:50 RBC 3.77 X10^6/uL (4.7-6.0) L 01/25/22 14:50 Hgb 12.9 g/dL (13.5-18.0) L 01/25/22 14:50 Hct 36.7 % (42.0-54.0) L 01/25/22 14:50 MCV 97.3 fL (80.0-100.0) 01/25/22 14:50 MCH 34.1 pg (27.0-34.0) H 01/25/22 14:50 MCHC 35.1 g/dL (33.0-35.0) H 01/25/22 14:50 RDW 14.6 % (11.6-16.5) 01/25/22 14:50 Plt Count 85 X10^3/uL (150.0-450.0) L 01/25/22 14:50 MPV 9.6 fL (7.4-11.0) 01/25/22 14:50 Neut % (Auto) 75.6 % (42.0-75.0) H 01/25/22 14:50 Lymph % (Auto) 12.8 % (21.0-51.0) L 01/25/22 14:50 [place] % (Auto) 8.6 % (0.0-13.0) 01/25/22 14:50 Eos % (Auto) 2.6 % (0.9-2.9) 01/25/22 14:50 Baso % (Auto) 0.4 % (0.2-1.0) 01/25/22 14:50 Neut # (Auto) 9.5 x10^3/uL (2.2-4.8) H 01/25/22 14:50 Lymph # (Auto) 1.6 X10^3/uL (1.3-2.9) 01/25/22 14:50 [place] # (Auto) 1.1 x10^3/uL (0.3-0.8) H 01/25/22 14:50 Eos # (Auto) 0.3 x10^3/uL (0.0-0.2) H 01/25/22 14:50 Baso # (Auto) 0.1 X10^3/uL (0.0-0.1) 01/25/22 14:50 Absolute Nucleated RBC 0.0 /100WBC 01/25/22 14:50 D-Dimer 2.56 ug/ml (0.0-0.57) H 01/25/22 14:50 Sodium 138 mmol/L (136-145) 01/25/22 14:50 Corrected Sodium 139 mmol/L (136-145) 01/25/22 14:50 Potassium 3.4 mmol/L (3.5-5.1) L 01/25/22 14:50 Chloride 104 mmol/L (98-107) 01/25/22 14:50 Carbon Dioxide 27.1 mmol/L (21-32) 01/25/22 14:50 BUN 28 mg/dL (7-18) H 01/25/22 14:50 Creatinine 1.19 mg/dL (0.70-1.30) 01/25/22 14:50 Est GFR (MDRD) Af Amer > 60 (>60) 01/25/22 14:50 Est GFR (MDRD) Non-Af > 60 (>60) 01/25/22 14:50 Glucose 131 mg/dL (65-99) H 01/25/22 14:50 Lactic Acid 2.2 mmol/L (0.4-2.0) H 01/25/22 14:50 Calcium 7.8 mg/dL (8.5-10.1) L 01/25/22 14:50 Corrected Calcium 9.2 mg/dL (8.5-10.1) 01/25/22 14:50 Total Bilirubin 1.70 mg/dL (0.2-1.0) H 01/25/22 14:50 AST 46 Units/L (15-37) H 01/25/22 14:50 ALT 39 Units/L (12-78) 01/25/22 14:50 Alkaline Phosphatase 85 Units/L (46-116) 01/25/22 14:50 Total Protein 6.1 g/dL (6.4-8.2) L 01/25/22 14:50 Albumin 2.2 g/dL (3.4-5.0) L 01/25/22 14:50 Globulin 3.9 g/dL (2.5-4.5) 01/25/22 14:50 Albumin/Globulin Ratio 0.6 Ratio (1.1-2.1) L 01/25/22 14:50 SARS-CoV-2 (PCR) Negative (NEGATIVE) 01/25/22 14:43 Opioid Opioid Risk Tool Age (Topher box if 16-45): No History of Preadolescent Sexual Abuse: No Total: 0 Total Score Risk Category: Low Risk Copyright: Desmond BOWLING predicting aberrant behaviors Discharge Plan Diagnosis Discharge Problem: Cellulitis of right lower extremity Discharge Plan Patient Disposition: 09 ADMITTED INPATIENT Condition: Stable ADDITIONAL NOTES Additional Notes Additional Notes: Name: IVON RODRÍGUEZ#: [id number]: [id number]: 1960ex: MLocation: EROrder Number(s): [id number](s):LOWER EXT VENOUS, UNILATERAL Ordering Physician: TERRI MARTIN Primary Care: YONNY SIMON Service Date: 01/25/22 Service Time: 1513 HISTORY Red swollen leg STUDY LOWER EXT VENOUS, UNILATERAL COMPARISON No relevant prior studies available. TECHNIQUE Grayscale and color Doppler images of the right lower extremity. FINDINGS Common femoral, femoral, popliteal and posterior tibial veins demonstrate normal compressibility, color Doppler flow, waveforms and augmentation with no filling defects. Soft tissues: Subcutaneous edema in the distal lower extremity. IMPRESSION No evidence of deep venous thrombus. Electronically signed by: Nahum Hansen (Jan 25, 2022 17:03:56) Report Electronically signed: 01/25/22 [id number] CC: Terri Martin
[2022-01-25] MEDS ORDERED: ROCEPHIN VIAL 1 GRAM 1 G in NS 100 ML IV 100 ML IV ONE (15:17)
[2022-01-25 15:24] LABS: BASOPHILS # (AUTO) 0.1 X10^3/uL (0.0-0.1); BASOPHILS % (AUTO) 0.4 % (0.2-1.0); EOSINOPHILS # (AUTO) 0.3 x10^3/uL (0.0-0.2); EOSINOPHILS % (AUTO) 2.6 % (0.9-2.9); HEMATOCRIT 36.7 % (42.0-54.0); HEMOGLOBIN 12.9 g/dL (13.5-18.0); LYMPHOCYTES # (AUTO) 1.6 X10^3/uL (1.3-2.9); LYMPHOCYTES % (AUTO) 12.8 % (21.0-51.0); MEAN CORPUSCULAR HEMOGLOBIN 34.1 pg (27.0-34.0); MEAN CORPUSCULAR HGB CONC 35.1 g/dL (33.0-35.0); MEAN CORPUSCULAR VOLUME 97.3 fL (80.0-100.0); MEAN PLATELET VOLUME 9.6 fL (7.4-11.0); MONOCYTES # (AUTO) 1.1 x10^3/uL (0.3-0.8); MONOCYTES % (AUTO) 8.6 % (0.0-13.0); NEUTROPHILS # (AUTO) 9.5 x10^3/uL (2.2-4.8); NEUTROPHILS % (AUTO) 75.6 % (42.0-75.0); RED BLOOD COUNT 3.77 X10^6/uL (4.7-6.0); RED CELL DISTRIBUTION WIDTH 14.6 % (11.6-16.5); WHITE BLOOD COUNT 12.5 X10^3/uL (3.6-10.0)
[2022-01-25 15:33] LABS: ALANINE AMINOTRANSFERASE 39 Units/L (12-78); ALBUMIN 2.2 g/dL (3.4-5.0); ALKALINE PHOSPHATASE 85 Units/L (46-116); ASPARTATE AMINO TRANSFERASE 46 Units/L (15-37); BLOOD UREA NITROGEN 28 mg/dL (7-18); CALCIUM 7.8 mg/dL (8.5-10.1); CARBON DIOXIDE 27.1 mmol/L (21-32); CHLORIDE 104 mmol/L (98-107); COR CA(FOR HYPOALB) 9.2 mg/dL (8.5-10.1); COR NA(FOR HYPERGLY) 139 mmol/L (136-145); CREATININE 1.19 mg/dL (0.70-1.30); SODIUM 138 mmol/L (136-145); TOTAL PROTEIN 6.1 g/dL (6.4-8.2); eGFR NON BLACK RACES > 60 (>60)
[2022-01-25] MEDS ORDERED: NS 250 ML IV 250 ML IV ONE (15:34)
[2022-01-25] MEDS ORDERED: ROCEPHIN VIAL 1 GRAM ONE (15:34)
[2022-01-25] MEDS ORDERED: NS 50 ML IV 50 ML IV ONE (15:34)
[2022-01-25 15:37] LABS: LACTIC ACID 2.2 mmol/L (0.4-2.0)
--- NOTE | 2022-01-25 17:05 | VAS ---
HISTORYRed swollen legSTUDYLOWER EXT VENOUS, UNILATERALCOMPARISONNo relevant prior studies available.TECHNIQUEGrayscale and color Doppler images of the right lower extremity.FINDINGSCommon femoral, femoral, popliteal and posterior tibial veins demonstrate normal compressibility, color Doppler flow, waveforms and augmentation with no filling defects.Soft tissues: Subcutaneous edema in the distal lower extremity.IMPRESSIONNo evidence of deep venous thrombus.Electronically signed by: Nahum Hansen (Jan 25, 2022 17:03:56)
[2022-01-25] MEDS ORDERED: PHARMACY CONSULT - VANCOMYCIN XX SCH (18:14)
[2022-01-25] MEDS ORDERED: ZOFRAN TAB 4 MG PO PRN (18:14)
[2022-01-25] MEDS ORDERED: VANCOMYCIN 1 GRAM PREMIX (ADDVANTAGE) 250 ML IV SCH (20:00)
[2022-01-25] MEDS: VANCOMYCIN IV *PREMIX 1 G/200 ML BAG 1 G/200 ML PIGGYBACK IV SCH (21:34)
[2022-01-25] MEDS: NS 1,000 ML IV 1,000 ML IV SCH (21:34)
[2022-01-25] MEDS ORDERED: NS 100 ML IV 100 ML ONE (21:55)
[2022-01-25] MEDS: ZOSYN VIAL 4.5 GRAMS 4.5 G in NS 100 ML IV + SPIKE MINIBAG* 100 ML IV SCH (23:00)
[2022-01-26] MEDS ORDERED: NS 100 ML IV 100 ML ONE (05:15)
[2022-01-26] MEDS: ZOSYN VIAL 4.5 GRAMS 4.5 G in NS 100 ML IV + SPIKE MINIBAG* 100 ML IV SCH (05:35)
[2022-01-26 06:31] LABS: ALANINE AMINOTRANSFERASE 33 Units/L (12-78); ALBUMIN 1.9 g/dL (3.4-5.0); ALKALINE PHOSPHATASE 102 Units/L (46-116); ASPARTATE AMINO TRANSFERASE 45 Units/L (15-37); BASOPHILS % (AUTO) 0.5 % (0.2-1.0); BLOOD UREA NITROGEN 22 mg/dL (7-18); CALCIUM 7.4 mg/dL (8.5-10.1); CARBON DIOXIDE 24.9 mmol/L (21-32); CHLORIDE 106 mmol/L (98-107); COR CA(FOR HYPOALB) 9.1 mg/dL (8.5-10.1); CREATININE 1.13 mg/dL (0.70-1.30); EOSINOPHILS # (AUTO) 0.4 x10^3/uL (0.0-0.2); EOSINOPHILS % (AUTO) 3.8 % (0.9-2.9); HEMATOCRIT 33.3 % (42.0-54.0); LYMPHOCYTES # (AUTO) 1.5 X10^3/uL (1.3-2.9); LYMPHOCYTES % (AUTO) 15.9 % (21.0-51.0); MEAN CORPUSCULAR HEMOGLOBIN 34.4 pg (27.0-34.0); MEAN CORPUSCULAR VOLUME 95.6 fL (80.0-100.0); MEAN PLATELET VOLUME 9.7 fL (7.4-11.0); MONOCYTES # (AUTO) 1.2 x10^3/uL (0.3-0.8); MONOCYTES % (AUTO) 13.2 % (0.0-13.0); NEUTROPHILS # (AUTO) 6.1 x10^3/uL (2.2-4.8); NEUTROPHILS % (AUTO) 66.6 % (42.0-75.0); RED BLOOD COUNT 3.48 X10^6/uL (4.7-6.0); RED CELL DISTRIBUTION WIDTH 14.6 % (11.6-16.5); SODIUM 140 mmol/L (136-145); TOTAL PROTEIN 5.5 g/dL (6.4-8.2); WHITE BLOOD COUNT 9.2 X10^3/uL (3.6-10.0); eGFR NON BLACK RACES > 60 (>60)
[2022-01-26 07:09] LABS: BAND NEUTROPHILS % 1 % (0-10); METAMYELOCYTES % 7
[2022-01-26 07:10] LABS: PLATELET MORPHOLOGY COMMENT NORMAL (NORMAL)
[2022-01-26] MEDS: VANCOMYCIN IV *PREMIX 1 G/200 ML BAG 1 G/200 ML PIGGYBACK IV SCH ×2 (08:54→22:27)
[2022-01-26] MEDS: K-DUR TAB 20 MEQ PO PRN (08:54)
[2022-01-26 12:54] LABS: MAGNESIUM 1.7 mg/dL (1.7-2.9)
[2022-01-26] MEDS: ALBUMIN HUMAN 25%- 100 ML 100 ML IV SCH (13:12)
[2022-01-26] MEDS: ZOSYN VIAL 4.5 GRAMS 4.5 G in NS 100 ML IV 100 ML IV SCH ×2 (14:17→22:30)
[2022-01-26] MEDS: NS 1,000 ML IV 1,000 ML IV SCH (19:00)
[2022-01-27] MEDS: ZOSYN VIAL 4.5 GRAMS 4.5 G in NS 100 ML IV 100 ML IV SCH ×3 (05:50→21:25)
[2022-01-27 05:52] LABS: BASOPHILS % (AUTO) 0.4 % (0.2-1.0); EOSINOPHILS # (AUTO) 0.3 x10^3/uL (0.0-0.2); HEMATOCRIT 31.4 % (42.0-54.0); HEMOGLOBIN 11.2 g/dL (13.5-18.0); LYMPHOCYTES # (AUTO) 1.3 X10^3/uL (1.3-2.9); LYMPHOCYTES % (AUTO) 17.5 % (21.0-51.0); MEAN CORPUSCULAR HGB CONC 35.6 g/dL (33.0-35.0); MEAN CORPUSCULAR VOLUME 95.3 fL (80.0-100.0); MEAN PLATELET VOLUME 9.1 fL (7.4-11.0); MONOCYTES % (AUTO) 13.1 % (0.0-13.0); NEUTROPHILS # (AUTO) 4.8 x10^3/uL (2.2-4.8); RED CELL DISTRIBUTION WIDTH 14.7 % (11.6-16.5); WHITE BLOOD COUNT 7.3 X10^3/uL (3.6-10.0)
[2022-01-27 06:14] LABS: ALANINE AMINOTRANSFERASE 27 Units/L (12-78); ALKALINE PHOSPHATASE 107 Units/L (46-116); ASPARTATE AMINO TRANSFERASE 42 Units/L (15-37); BLOOD UREA NITROGEN 15 mg/dL (7-18); CALCIUM 7.2 mg/dL (8.5-10.1); CARBON DIOXIDE 23.8 mmol/L (21-32); CHLORIDE 107 mmol/L (98-107); COR CA(FOR HYPOALB) 8.8 mg/dL (8.5-10.1); COR NA(FOR HYPERGLY) 138 mmol/L (136-145); CREATININE 0.96 mg/dL (0.70-1.30); SODIUM 138 mmol/L (136-145); TOTAL PROTEIN 5.4 g/dL (6.4-8.2); eGFR NON BLACK RACES > 60 (>60)
[2022-01-27] MEDS: K-DUR TAB 20 MEQ PO PRN (06:36)
[2022-01-27 06:46] LABS: METAMYELOCYTES % 1; MYELOCYTES % 1; PLATELET MORPHOLOGY COMMENT NORMAL (NORMAL)
[2022-01-27] MEDS ORDERED: PHARMACY COMMENT IV SCH (07:00)
[2022-01-27] MEDS: ALBUMIN HUMAN 25%- 100 ML 100 ML IV SCH (09:38)
[2022-01-27] MEDS: NS 1,000 ML IV 1,000 ML IV SCH (09:40)
[2022-01-27] MEDS: VANCOMYCIN IV *PREMIX 1 G/200 ML BAG 1 G/200 ML PIGGYBACK IV SCH ×2 (11:18→20:39)
[2022-01-27] MEDS: MORPHINE SULFATE INJ 2 MG INJ IVP PRN (19:20)
[2022-01-27 20:35] LABS: CREATININE 0.95 mg/dL (0.70-1.30); VANCOMYCIN,TROUGH 8.7 ug/mL (15-20)
[2022-01-28 05:10] LABS: BASOPHILS % (AUTO) 0.4 % (0.2-1.0); EOSINOPHILS # (AUTO) 0.3 x10^3/uL (0.0-0.2); EOSINOPHILS % (AUTO) 4.1 % (0.9-2.9); HEMATOCRIT 29.6 % (42.0-54.0); HEMOGLOBIN 10.6 g/dL (13.5-18.0); LYMPHOCYTES # (AUTO) 1.2 X10^3/uL (1.3-2.9); LYMPHOCYTES % (AUTO) 16.9 % (21.0-51.0); MEAN CORPUSCULAR HEMOGLOBIN 34.4 pg (27.0-34.0); MEAN CORPUSCULAR HGB CONC 35.7 g/dL (33.0-35.0); MEAN CORPUSCULAR VOLUME 96.1 fL (80.0-100.0); MEAN PLATELET VOLUME 8.7 fL (7.4-11.0); MONOCYTES # (AUTO) 0.8 x10^3/uL (0.3-0.8); MONOCYTES % (AUTO) 10.5 % (0.0-13.0); NEUTROPHILS # (AUTO) 4.9 x10^3/uL (2.2-4.8); NEUTROPHILS % (AUTO) 68.1 % (42.0-75.0); RED BLOOD COUNT 3.08 X10^6/uL (4.7-6.0); RED CELL DISTRIBUTION WIDTH 14.4 % (11.6-16.5); WHITE BLOOD COUNT 7.2 X10^3/uL (3.6-10.0)
[2022-01-28 05:24] LABS: ALANINE AMINOTRANSFERASE 22 Units/L (12-78); ALBUMIN 2.1 g/dL (3.4-5.0); ALKALINE PHOSPHATASE 98 Units/L (46-116); ASPARTATE AMINO TRANSFERASE 41 Units/L (15-37); BLOOD UREA NITROGEN 12 mg/dL (7-18); CALCIUM 6.9 mg/dL (8.5-10.1); CARBON DIOXIDE 24.1 mmol/L (21-32); CHLORIDE 107 mmol/L (98-107); COR CA(FOR HYPOALB) 8.4 mg/dL (8.5-10.1); COR NA(FOR HYPERGLY) 138 mmol/L (136-145); CREATININE 0.94 mg/dL (0.70-1.30); MAGNESIUM 1.7 mg/dL (1.7-2.9); SODIUM 138 mmol/L (136-145); TOTAL PROTEIN 5.3 g/dL (6.4-8.2); eGFR NON BLACK RACES > 60 (>60)
[2022-01-28] MEDS: ZOSYN VIAL 4.5 GRAMS 4.5 G in NS 100 ML IV 100 ML IV SCH ×3 (05:41→22:06)
[2022-01-28 05:44] LABS: BAND NEUTROPHILS % 1 % (0-10)
[2022-01-28 05:45] LABS: METAMYELOCYTES % 1; PLATELET MORPHOLOGY COMMENT NORMAL (NORMAL); SMUDGE CELLS SLIGHT
[2022-01-28] MEDS ORDERED: VANCOMYCIN IV *PREMIX 1 G/200 ML BAG 1 G/200 ML PIGGYBACK IV SCH (07:00)
[2022-01-28] MEDS ORDERED: PHARMACY CONSULT - VANCOMYCIN XX SCH (07:00)
[2022-01-28] MEDS: K-DUR TAB 20 MEQ PO PRN (08:53)
[2022-01-28] MEDS: NS 1,000 ML IV 1,000 ML IV SCH ×3 (09:29→12:48)
[2022-01-28] MEDS: VANCOMYCIN IV *PREMIX 1 G/200 ML BAG 1 G/200 ML PIGGYBACK IV SCH ×3 (09:30→21:00)
[2022-01-28] MEDS: ALBUMIN HUMAN 25%- 100 ML 100 ML IV SCH (09:31)
[2022-01-28] MEDS: MORPHINE SULFATE INJ 2 MG INJ IVP PRN ×2 (09:32→15:42)
--- NOTE | 2022-01-28 11:05 | PCM.PROG ---
Progress Note Progress Note for Day of Date of Exam: 01/28/22 Subjective Subjective: Pt is a 61 year old male admitted for cellulitis. This morning he still reports some pain and swelling in his right leg and foot. Erythema continues to slowly improve. No acute events overnight. Labs were obtained: Wbc 7.2, Hgb 10.6, Plt 71, Na 138, K 3.6, Creatinine 0.94, Glucose 119. Blood cultures pending. The patient does have Hepatitis C and has not seen Dr. Aragon for follow up, which is why he has elevated bilirubin and liver enzymes. Will continue with IV vancomycin. When patient has clinically improved, can then consider changing over to oral antibiotics. Keep leg elevated to help with healing and blood flow. Otherwise, continue with current treatment plan. Closely monitor and follow up labs in the morning. Past Medical Family Social History Past Med/Fam/Surg Hx: No changes since H&P Allergies: Allergies No Known Drug Allergies Allergy (Verified 12/15/21 18:25) Review of Systems ROS: No change since H&P Vital Signs and I&O's Vital Signs: Temperature 98.2 F Pulse Rate [Bilateral Radial] 82 Pulse Rate [Left Brachial] 84 Pulse Rate 102 Respiratory Rate 20 Blood Pressure [Right Arm] 131/67 Blood Pressure 128/61 O2 Sat by Pulse Oximetry 98 Intake and Output: Intake & Output 01/25/22 01/26/22 01/27/22 01/28/22 23:59 23:59 23:59 23:59 Intake Total 540 / 540 1270 / 1270 2034 / 2034 120 / 120 Output Total 1470 / 1470 1000 / 1000 Balance 540 / 540 -200 / -200 1034 / 1034 120 / 120 Physical Exam Oriented: Normal Eyes: Normal Respiratory: Normal Cardiovascular: Normal : Normal Auscultation: Bowel Sounds: Normal Palpation: Normal Skin: Red (RLE and foot) and Tender Musculoskeletal: Swelling (RLE, foot) Speech Pattern: Clear and Appropriate Laboratory and Diagnostics Result Diagrams: 01/28/22 04:45 01/28/22 04:45 Labs: 01/25/22 14:55 Blood Blood Culture - Preliminary 01/25/22 14:50 Blood Blood Culture - Preliminary Laboratory WBC 7.2 X10^3/uL (3.6-10.0) 01/28/22 04:45 RBC 3.08 X10^6/uL (4.7-6.0) L 01/28/22 04:45 Hgb 10.6 g/dL (13.5-18.0) L 01/28/22 04:45 Hct 29.6 % (42.0-54.0) L 01/28/22 04:45 MCV 96.1 fL (80.0-100.0) 01/28/22 04:45 MCH 34.4 pg (27.0-34.0) H 01/28/22 04:45 MCHC 35.7 g/dL (33.0-35.0) H 01/28/22 04:45 RDW 14.4 % (11.6-16.5) 01/28/22 04:45 Plt Count 71 X10^3/uL (150.0-450.0) L 01/28/22 04:45 Plt Count Comment Decreased (ADEQUATE) 01/28/22 04:45 MPV 8.7 fL (7.4-11.0) 01/28/22 04:45 Neut % (Auto) 68.1 % (42.0-75.0) 01/28/22 04:45 Lymph % (Auto) 16.9 % (21.0-51.0) L 01/28/22 04:45 [place] % (Auto) 10.5 % (0.0-13.0) 01/28/22 04:45 Eos % (Auto) 4.1 % (0.9-2.9) H 01/28/22 04:45 Baso % (Auto) 0.4 % (0.2-1.0) 01/28/22 04:45 Neut # (Auto) 4.9 x10^3/uL (2.2-4.8) H 01/28/22 04:45 Lymph # (Auto) 1.2 X10^3/uL (1.3-2.9) L 01/28/22 04:45 [place] # (Auto) 0.8 x10^3/uL (0.3-0.8) 01/28/22 04:45 Eos # (Auto) 0.3 x10^3/uL (0.0-0.2) H 01/28/22 04:45 Baso # (Auto) 0.0 X10^3/uL (0.0-0.1) 01/28/22 04:45 Absolute Nucleated RBC 0.0 /100WBC 01/28/22 04:45 Total Counted 100 01/28/22 04:45 Neutrophils % (Manual) 63 % (39-76) 01/28/22 04:45 Band Neutrophils % 1 % (0-10) 01/28/22 04:45 Lymphocytes % (Manual) 21 % (13-43) 01/28/22 04:45 Monocytes % (Manual) 11 % (4-9) H 01/28/22 04:45 Eosinophils % (Manual) 3 % (0-6) 01/28/22 04:45 Metamyelocytes % 1 01/28/22 04:45 Myelocytes % 1 01/27/22 05:28 Smudge Cells Slight A 01/28/22 04:45 Plt Morphology Comment Normal (NORMAL) 01/28/22 04:45 RBC Morphology Normal (NORMAL) 01/28/22 04:45 D-Dimer 2.56 ug/ml (0.0-0.57) H 01/25/22 14:50 Sodium 138 mmol/L (136-145) 01/28/22 04:45 Corrected Sodium 138 mmol/L (136-145) 01/28/22 04:45 Potassium 3.6 mmol/L (3.5-5.1) 01/28/22 04:45 Chloride 107 mmol/L (98-107) 01/28/22 04:45 Carbon Dioxide 24.1 mmol/L (21-32) 01/28/22 04:45 BUN 12 mg/dL (7-18) 01/28/22 04:45 Creatinine 0.94 mg/dL (0.70-1.30) 01/28/22 04:45 Est GFR (MDRD) Af Amer > 60 (>60) 01/28/22 04:45 Est GFR (MDRD) Non-Af > 60 (>60) 01/28/22 04:45 Glucose 119 mg/dL (65-99) H 01/28/22 04:45 Lactic Acid 2.2 mmol/L (0.4-2.0) H 01/25/22 14:50 Calcium 6.9 mg/dL (8.5-10.1) L 01/28/22 04:45 Corrected Calcium 8.4 mg/dL (8.5-10.1) L 01/28/22 04:45 Magnesium 1.7 mg/dL (1.7-2.9) 01/28/22 04:45 Total Bilirubin 2.20 mg/dL (0.2-1.0) H 01/28/22 04:45 AST 41 Units/L (15-37) H 01/28/22 04:45 ALT 22 Units/L (12-78) 01/28/22 04:45 Alkaline Phosphatase 98 Units/L (46-116) 01/28/22 04:45 Total Protein 5.3 g/dL (6.4-8.2) L 01/28/22 04:45 Albumin 2.1 g/dL (3.4-5.0) L 01/28/22 04:45 Globulin 3.2 g/dL (2.5-4.5) 01/28/22 04:45 Albumin/Globulin Ratio 0.7 Ratio (1.1-2.1) L 01/28/22 04:45 Vancomycin Trough 8.7 ug/mL (15-20) L 01/27/22 20:07 SARS-CoV-2 (PCR) Negative (NEGATIVE) 01/25/22 14:43 Plan (1) Cellulitis of right lower extremity: Status: Acute Narrative Support Text: Continue IV antibiotics:Vancomycin Blood cultures pending
[2022-01-28] MEDS: MOTRIN TAB 600 MG PO PRN (11:11)
[2022-01-28] MEDS: MAGNESIUM SULFATE 1 GRAM/100 mL PREMIX 1 G/100 ML BAG IV PRN ×2 (12:48→15:41)
[2022-01-28] MEDS ORDERED: VANCOMYCIN IV *PREMIX 1.25 G/250 ML BAG 1.25 G/250 ML PIGGYBACK IV SCH (14:00)
[2022-01-29] MEDS: NS 1,000 ML IV 1,000 ML IV SCH ×2 (02:40→13:15)
[2022-01-29 05:14] LABS: BASOPHILS # (AUTO) 0.1 X10^3/uL (0.0-0.1); BASOPHILS % (AUTO) 0.7 % (0.2-1.0); EOSINOPHILS # (AUTO) 0.5 x10^3/uL (0.0-0.2); EOSINOPHILS % (AUTO) 5.5 % (0.9-2.9); HEMATOCRIT 30.4 % (42.0-54.0); HEMOGLOBIN 10.9 g/dL (13.5-18.0); LYMPHOCYTES # (AUTO) 0.9 X10^3/uL (1.3-2.9); LYMPHOCYTES % (AUTO) 9.6 % (21.0-51.0); MEAN CORPUSCULAR HEMOGLOBIN 34.7 pg (27.0-34.0); MEAN CORPUSCULAR HGB CONC 35.8 g/dL (33.0-35.0); MEAN CORPUSCULAR VOLUME 96.9 fL (80.0-100.0); MEAN PLATELET VOLUME 8.5 fL (7.4-11.0); MONOCYTES # (AUTO) 0.4 x10^3/uL (0.3-0.8); MONOCYTES % (AUTO) 4.4 % (0.0-13.0); NEUTROPHILS # (AUTO) 7.2 x10^3/uL (2.2-4.8); NEUTROPHILS % (AUTO) 79.8 % (42.0-75.0); RED BLOOD COUNT 3.14 X10^6/uL (4.7-6.0); RED CELL DISTRIBUTION WIDTH 14.6 % (11.6-16.5); WHITE BLOOD COUNT 9.1 X10^3/uL (3.6-10.0)
[2022-01-29 05:20] LABS: CREATININE 0.79 mg/dL (0.70-1.30); VANCOMYCIN,TROUGH 11.9 ug/mL (15-20)
[2022-01-29 05:28] LABS: ALANINE AMINOTRANSFERASE 22 Units/L (12-78); ALBUMIN 2.2 g/dL (3.4-5.0); ALKALINE PHOSPHATASE 97 Units/L (46-116); ASPARTATE AMINO TRANSFERASE 41 Units/L (15-37); BLOOD UREA NITROGEN 12 mg/dL (7-18); CHLORIDE 108 mmol/L (98-107); COR CA(FOR HYPOALB) 8.4 mg/dL (8.5-10.1); COR NA(FOR HYPERGLY) 140 mmol/L (136-145); CREATININE 0.77 mg/dL (0.70-1.30); SODIUM 139 mmol/L (136-145); TOTAL PROTEIN 5.4 g/dL (6.4-8.2); eGFR NON BLACK RACES > 60 (>60)
[2022-01-29] MEDS ORDERED: PHARMACY COMMENT IV NR (05:30)
[2022-01-29 05:33] LABS: BAND NEUTROPHILS % 3 % (0-10); METAMYELOCYTES % 1; PLATELET MORPHOLOGY COMMENT NORMAL (NORMAL)
[2022-01-29] MEDS: VANCOMYCIN IV *PREMIX 1 G/200 ML BAG 1 G/200 ML PIGGYBACK IV SCH ×3 (05:46→21:02)
[2022-01-29] MEDS: ZOSYN VIAL 4.5 GRAMS 4.5 G in NS 100 ML IV 100 ML IV SCH ×3 (05:46→22:26)
[2022-01-29] MEDS: MORPHINE SULFATE INJ 2 MG INJ IVP PRN ×3 (05:55→20:16)
[2022-01-29] MEDS: MOTRIN TAB 600 MG PO PRN (08:58)
[2022-01-29] MEDS: ALBUMIN HUMAN 25%- 100 ML 100 ML IV SCH (09:01)
--- NOTE | 2022-01-29 10:23 | PCM.PROG ---
Progress Note Progress Note for Day of Date of Exam: 01/29/22 Subjective Subjective: Pt is a 61 year old male admitted for cellulitis. This morning he continues to have some pain and swelling in his right leg and foot. Erythema is gradually improving. No acute events overnight. Vancomycin dose adjusted for therapeutic level. Labs were obtained: Wbc 9.1, Hgb 10.9, Plt 75, Na 139, K 3.9, Creatinine 0.79, Glucose 121. Blood cultures pending. The patient does have Hepatitis C and has not seen Dr. Aragon for follow up, which is why he has elevated bilirubin and liver enzymes. Will continue with IV vancomycin. When patient has clinically improved, can then consider changing over to oral antibiotics. Keep leg elevated to help with healing and blood flow. Otherwise, will continue with current treatment plan. Closely monitor and follow up labs in the morning. Past Medical Family Social History Past Med/Fam/Surg Hx: No changes since H&P Allergies: Allergies No Known Drug Allergies Allergy (Verified 12/15/21 18:25) Review of Systems ROS: No change since H&P Vital Signs and I&O's Vital Signs: Temperature 98.0 F Pulse Rate [Bilateral Radial] 81 Pulse Rate [Left Brachial] 84 Pulse Rate 102 Respiratory Rate 18 Blood Pressure [Right Arm] 139/79 Blood Pressure 128/61 O2 Sat by Pulse Oximetry 100 Intake and Output: Intake & Output 01/26/22 01/27/22 01/28/22 01/29/22 23:59 23:59 23:59 23:59 Intake Total 1270 / 1270 2034 / 2034 2620 / 2620 200 / 200 Output Total 1470 / 1470 1000 / 1000 1300 / 1300 Balance -200 / -200 1034 / 1034 1320 / 1320 200 / 200 Physical Exam Oriented: Normal Eyes: Normal Respiratory: Normal Cardiovascular: Normal : Normal Auscultation: Bowel Sounds: Normal Skin: Red (RLE and foot) and Tender Musculoskeletal: Swelling (RLE, foot) Speech Pattern: Clear and Appropriate Laboratory and Diagnostics Result Diagrams: 01/29/22 04:50 01/29/22 04:50 Labs: 01/25/22 14:55 Blood Blood Culture - Preliminary 01/25/22 14:50 Blood Blood Culture - Preliminary Laboratory WBC 9.1 X10^3/uL (3.6-10.0) 01/29/22 04:50 RBC 3.14 X10^6/uL (4.7-6.0) L 01/29/22 04:50 Hgb 10.9 g/dL (13.5-18.0) L 01/29/22 04:50 Hct 30.4 % (42.0-54.0) L 01/29/22 04:50 MCV 96.9 fL (80.0-100.0) 01/29/22 04:50 MCH 34.7 pg (27.0-34.0) H 01/29/22 04:50 MCHC 35.8 g/dL (33.0-35.0) H 01/29/22 04:50 RDW 14.6 % (11.6-16.5) 01/29/22 04:50 Plt Count 75 X10^3/uL (150.0-450.0) L 01/29/22 04:50 Plt Count Comment Decreased (ADEQUATE) 01/29/22 04:50 MPV 8.5 fL (7.4-11.0) 01/29/22 04:50 Neut % (Auto) 79.8 % (42.0-75.0) H 01/29/22 04:50 Lymph % (Auto) 9.6 % (21.0-51.0) L 01/29/22 04:50 [place] % (Auto) 4.4 % (0.0-13.0) 01/29/22 04:50 Eos % (Auto) 5.5 % (0.9-2.9) H 01/29/22 04:50 Baso % (Auto) 0.7 % (0.2-1.0) 01/29/22 04:50 Neut # (Auto) 7.2 x10^3/uL (2.2-4.8) H 01/29/22 04:50 Lymph # (Auto) 0.9 X10^3/uL (1.3-2.9) L 01/29/22 04:50 [place] # (Auto) 0.4 x10^3/uL (0.3-0.8) 01/29/22 04:50 Eos # (Auto) 0.5 x10^3/uL (0.0-0.2) H 01/29/22 04:50 Baso # (Auto) 0.1 X10^3/uL (0.0-0.1) 01/29/22 04:50 Absolute Nucleated RBC 0.0 /100WBC 01/29/22 04:50 Total Counted 100 01/29/22 04:50 Neutrophils % (Manual) 70 % (39-76) 01/29/22 04:50 Band Neutrophils % 3 % (0-10) 01/29/22 04:50 Lymphocytes % (Manual) 13 % (13-43) 01/29/22 04:50 Monocytes % (Manual) 10 % (4-9) H 01/29/22 04:50 Eosinophils % (Manual) 3 % (0-6) 01/29/22 04:50 Metamyelocytes % 1 01/29/22 04:50 Myelocytes % 1 01/27/22 05:28 Smudge Cells Slight A 01/28/22 04:45 Plt Morphology Comment Normal (NORMAL) 01/29/22 04:50 RBC Morphology Normal (NORMAL) 01/29/22 04:50 D-Dimer 2.56 ug/ml (0.0-0.57) H 01/25/22 14:50 Sodium 139 mmol/L (136-145) 01/29/22 04:50 Corrected Sodium 140 mmol/L (136-145) 01/29/22 04:50 Potassium 3.9 mmol/L (3.5-5.1) 01/29/22 04:50 Chloride 108 mmol/L (98-107) H 01/29/22 04:50 Carbon Dioxide 24.0 mmol/L (21-32) 01/29/22 04:50 BUN 12 mg/dL (7-18) 01/29/22 04:50 Creatinine 0.77 mg/dL (0.70-1.30) 01/29/22 04:50 Creatinine 0.79 mg/dL (0.70-1.30) 01/29/22 04:50 Est GFR (MDRD) Af Amer > 60 (>60) 01/29/22 04:50 Est GFR (MDRD) Non-Af > 60 (>60) 01/29/22 04:50 Glucose 121 mg/dL (65-99) H 01/29/22 04:50 Lactic Acid 2.2 mmol/L (0.4-2.0) H 01/25/22 14:50 Calcium 7.0 mg/dL (8.5-10.1) L 01/29/22 04:50 Corrected Calcium 8.4 mg/dL (8.5-10.1) L 01/29/22 04:50 Magnesium 2.0 mg/dL (1.7-2.9) 01/29/22 04:50 Total Bilirubin 1.70 mg/dL (0.2-1.0) H 01/29/22 04:50 AST 41 Units/L (15-37) H 01/29/22 04:50 ALT 22 Units/L (12-78) 01/29/22 04:50 Alkaline Phosphatase 97 Units/L (46-116) 01/29/22 04:50 Total Protein 5.4 g/dL (6.4-8.2) L 01/29/22 04:50 Albumin 2.2 g/dL (3.4-5.0) L 01/29/22 04:50 Globulin 3.2 g/dL (2.5-4.5) 01/29/22 04:50 Albumin/Globulin Ratio 0.7 Ratio (1.1-2.1) L 01/29/22 04:50 Vancomycin Trough 11.9 ug/mL (15-20) L 01/29/22 04:50 SARS-CoV-2 (PCR) Negative (NEGATIVE) 01/25/22 14:43 Plan (1) Cellulitis of right lower extremity: Status: Acute
[2022-01-30] MEDS: NS 1,000 ML IV 1,000 ML IV SCH ×2 (03:14→15:58)
[2022-01-30] MEDS: VANCOMYCIN IV *PREMIX 1 G/200 ML BAG 1 G/200 ML PIGGYBACK IV SCH ×3 (05:09→21:04)
[2022-01-30 05:12] LABS: BASOPHILS % (AUTO) 0.3 % (0.2-1.0); EOSINOPHILS # (AUTO) 0.3 x10^3/uL (0.0-0.2); EOSINOPHILS % (AUTO) 3.5 % (0.9-2.9); HEMATOCRIT 28.4 % (42.0-54.0); HEMOGLOBIN 10.2 g/dL (13.5-18.0); LYMPHOCYTES # (AUTO) 1.2 X10^3/uL (1.3-2.9); LYMPHOCYTES % (AUTO) 13.9 % (21.0-51.0); MEAN CORPUSCULAR HEMOGLOBIN 34.8 pg (27.0-34.0); MEAN CORPUSCULAR VOLUME 96.5 fL (80.0-100.0); MEAN PLATELET VOLUME 8.6 fL (7.4-11.0); MONOCYTES # (AUTO) 0.5 x10^3/uL (0.3-0.8); MONOCYTES % (AUTO) 5.8 % (0.0-13.0); NEUTROPHILS # (AUTO) 6.5 x10^3/uL (2.2-4.8); NEUTROPHILS % (AUTO) 76.5 % (42.0-75.0); RED BLOOD COUNT 2.94 X10^6/uL (4.7-6.0); RED CELL DISTRIBUTION WIDTH 14.7 % (11.6-16.5); WHITE BLOOD COUNT 8.5 X10^3/uL (3.6-10.0)
[2022-01-30 05:21] LABS: ALANINE AMINOTRANSFERASE 23 Units/L (12-78); ALBUMIN 2.2 g/dL (3.4-5.0); ALKALINE PHOSPHATASE 90 Units/L (46-116); ASPARTATE AMINO TRANSFERASE 46 Units/L (15-37); BLOOD UREA NITROGEN 10 mg/dL (7-18); CALCIUM 7.1 mg/dL (8.5-10.1); CARBON DIOXIDE 25.7 mmol/L (21-32); CHLORIDE 108 mmol/L (98-107); COR CA(FOR HYPOALB) 8.5 mg/dL (8.5-10.1); CREATININE 0.72 mg/dL (0.70-1.30); SODIUM 140 mmol/L (136-145); TOTAL PROTEIN 5.3 g/dL (6.4-8.2); eGFR NON BLACK RACES > 60 (>60)
[2022-01-30] MEDS: ZOSYN VIAL 4.5 GRAMS 4.5 G in NS 100 ML IV 100 ML IV SCH ×3 (05:35→22:25)
[2022-01-30] MEDS: K-DUR TAB 20 MEQ PO PRN (05:35)
[2022-01-30] MEDS: MORPHINE SULFATE INJ 2 MG INJ IVP PRN ×2 (07:58→15:47)
[2022-01-30] MEDS: ALBUMIN HUMAN 25%- 100 ML 100 ML IV SCH (08:04)
--- NOTE | 2022-01-30 10:59 | PCM.PROG ---
Progress Note Progress Note for Day of Date of Exam: 01/30/22 Subjective Subjective: Pt is a 61 year old male admitted for cellulitis. Yesterday patient did develop a blister on his foot that drained, unfortunately no culture was obtained. This morning he continues to have some pain and swelling in his right foot but overall his erythema has improved and is resolving. No acute events overnight. Vancomycin dose adjusted for therapeutic level. Labs were obtained: Wbc 8.5, Hgb 10.2, Plt 81, Na 140, K 3.7, Creatinine 0.72, Glucose 101. Blood cultures NGTD. The patient does have Hepatitis C and has not seen Dr. Aragon for follow up, which is why he has elevated bilirubin and liver enzymes. Will continue with IV vancomycin. 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 Keep leg elevated to help with healing and blood flow. Otherwise, will continue with current treatment plan. Closely monitor and follow up labs in the morning. Past Medical Family Social History Past Med/Fam/Surg Hx: No changes since H&P Allergies: Allergies No Known Drug Allergies Allergy (Verified 12/15/21 18:25) Review of Systems ROS: No change since H&P Vital Signs and I&O's Vital Signs: Temperature 98.3 F Pulse Rate [Bilateral Radial] 83 Pulse Rate [Left Brachial] 84 Pulse Rate 102 Respiratory Rate 20 Blood Pressure [Right Arm] 132/65 Blood Pressure 128/61 O2 Sat by Pulse Oximetry 100 Intake and Output: Intake & Output 01/27/22 01/28/22 01/29/22 01/30/22 23:59 23:59 23:59 23:59 Intake Total 2033 / 2033 2620 / 2620 1340 / 1340 780 / 780 Output Total 1000 / 1000 1300 / 1300 750 / 750 450 / 450 Balance 1034 / 1034 1320 / 1320 590 / 590 330 / 330 Physical Exam Oriented: Normal Eyes: Normal Respiratory: Normal Cardiovascular: Normal : Normal Auscultation: Bowel Sounds: Normal Skin: Red (RLE and foot) and Tender Musculoskeletal: Swelling (RLE, foot) Speech Pattern: Clear and Appropriate Laboratory and Diagnostics Result Diagrams: 01/30/22 04:45 01/30/22 04:45 Labs: 01/25/22 14:55 Blood Blood Culture - Preliminary 01/25/22 14:50 Blood Blood Culture - Preliminary Laboratory WBC 8.5 X10^3/uL (3.6-10.0) 01/30/22 04:45 RBC 2.94 X10^6/uL (4.7-6.0) L 01/30/22 04:45 Hgb 10.2 g/dL (13.5-18.0) L 01/30/22 04:45 Hct 28.4 % (42.0-54.0) L 01/30/22 04:45 MCV 96.5 fL (80.0-100.0) 01/30/22 04:45 MCH 34.8 pg (27.0-34.0) H 01/30/22 04:45 MCHC 36.0 g/dL (33.0-35.0) H 01/30/22 04:45 RDW 14.7 % (11.6-16.5) 01/30/22 04:45 Plt Count 81 X10^3/uL (150.0-450.0) L 01/30/22 04:45 Plt Count Comment Decreased (ADEQUATE) 01/29/22 04:50 MPV 8.6 fL (7.4-11.0) 01/30/22 04:45 Neut % (Auto) 76.5 % (42.0-75.0) H 01/30/22 04:45 Lymph % (Auto) 13.9 % (21.0-51.0) L 01/30/22 04:45 [place] % (Auto) 5.8 % (0.0-13.0) 01/30/22 04:45 Eos % (Auto) 3.5 % (0.9-2.9) H 01/30/22 04:45 Baso % (Auto) 0.3 % (0.2-1.0) 01/30/22 04:45 Neut # (Auto) 6.5 x10^3/uL (2.2-4.8) H 01/30/22 04:45 Lymph # (Auto) 1.2 X10^3/uL (1.3-2.9) L 01/30/22 04:45 [place] # (Auto) 0.5 x10^3/uL (0.3-0.8) 01/30/22 04:45 Eos # (Auto) 0.3 x10^3/uL (0.0-0.2) H 01/30/22 04:45 Baso # (Auto) 0.0 X10^3/uL (0.0-0.1) 01/30/22 04:45 Absolute Nucleated RBC 0.0 /100WBC 01/30/22 04:45 Total Counted 100 01/29/22 04:50 Neutrophils % (Manual) 70 % (39-76) 01/29/22 04:50 Band Neutrophils % 3 % (0-10) 01/29/22 04:50 Lymphocytes % (Manual) 13 % (13-43) 01/29/22 04:50 Monocytes % (Manual) 10 % (4-9) H 01/29/22 04:50 Eosinophils % (Manual) 3 % (0-6) 01/29/22 04:50 Metamyelocytes % 1 01/29/22 04:50 Myelocytes % 1 01/27/22 05:28 Smudge Cells Slight A 01/28/22 04:45 Plt Morphology Comment Normal (NORMAL) 01/29/22 04:50 RBC Morphology Normal (NORMAL) 01/29/22 04:50 D-Dimer 2.56 ug/ml (0.0-0.57) H 01/25/22 14:50 Sodium 140 mmol/L (136-145) 01/30/22 04:45 Corrected Sodium TNP 01/30/22 04:45 Potassium 3.7 mmol/L (3.5-5.1) 01/30/22 04:45 Chloride 108 mmol/L (98-107) H 01/30/22 04:45 Carbon Dioxide 25.7 mmol/L (21-32) 01/30/22 04:45 BUN 10 mg/dL (7-18) 01/30/22 04:45 Creatinine 0.72 mg/dL (0.70-1.30) 01/30/22 04:45 Est GFR (MDRD) Af Amer > 60 (>60) 01/30/22 04:45 Est GFR (MDRD) Non-Af > 60 (>60) 01/30/22 04:45 Glucose 101 mg/dL (65-99) H 01/30/22 04:45 Lactic Acid 2.2 mmol/L (0.4-2.0) H 01/25/22 14:50 Calcium 7.1 mg/dL (8.5-10.1) L 01/30/22 04:45 Corrected Calcium 8.5 mg/dL (8.5-10.1) 01/30/22 04:45 Magnesium 2.0 mg/dL (1.7-2.9) 01/29/22 04:50 Total Bilirubin 1.70 mg/dL (0.2-1.0) H 01/30/22 04:45 AST 46 Units/L (15-37) H 01/30/22 04:45 ALT 23 Units/L (12-78) 01/30/22 04:45 Alkaline Phosphatase 90 Units/L (46-116) 01/30/22 04:45 Total Protein 5.3 g/dL (6.4-8.2) L 01/30/22 04:45 Albumin 2.2 g/dL (3.4-5.0) L 01/30/22 04:45 Globulin 3.1 g/dL (2.5-4.5) 01/30/22 04:45 Albumin/Globulin Ratio 0.7 Ratio (1.1-2.1) L 01/30/22 04:45 Vancomycin Trough 11.9 ug/mL (15-20) L 01/29/22 04:50 SARS-CoV-2 (PCR) Negative (NEGATIVE) 01/25/22 14:43 Plan (1) Cellulitis of right lower extremity: Status: Acute
[2022-01-30] MEDS: MOTRIN TAB 600 MG PO PRN (11:59)
[2022-01-30 14:40] LABS: CREATININE 0.81 mg/dL (0.70-1.30); VANCOMYCIN,TROUGH 11.6 ug/mL (15-20)
[2022-01-30] MEDS ORDERED: ZOFRAN INJ 4 MG VIAL ONE (19:36)
[2022-01-30] MEDS: ZOFRAN INJ 4 MG VIAL IVP PRN (19:40)
[2022-01-30] MEDS ORDERED: PHENERGAN INJ 25 MG IM PRN (21:03)
[2022-01-31] MEDS: NS 1,000 ML IV 1,000 ML IV SCH ×3 (02:12→17:01)
[2022-01-31] MEDS: VANCOMYCIN IV *PREMIX 1 G/200 ML BAG 1 G/200 ML PIGGYBACK IV SCH ×3 (05:00→21:12)
[2022-01-31 05:04] LABS: BASOPHILS # (AUTO) 0.1 X10^3/uL (0.0-0.1); BASOPHILS % (AUTO) 0.4 % (0.2-1.0); EOSINOPHILS # (AUTO) 0.4 x10^3/uL (0.0-0.2); EOSINOPHILS % (AUTO) 2.5 % (0.9-2.9); HEMATOCRIT 26.8 % (42.0-54.0); HEMOGLOBIN 9.4 g/dL (13.5-18.0); LYMPHOCYTES # (AUTO) 1.8 X10^3/uL (1.3-2.9); MEAN CORPUSCULAR HEMOGLOBIN 34.3 pg (27.0-34.0); MEAN CORPUSCULAR HGB CONC 34.9 g/dL (33.0-35.0); MEAN CORPUSCULAR VOLUME 98.2 fL (80.0-100.0); MEAN PLATELET VOLUME 8.1 fL (7.4-11.0); MONOCYTES # (AUTO) 0.8 x10^3/uL (0.3-0.8); MONOCYTES % (AUTO) 5.6 % (0.0-13.0); NEUTROPHILS # (AUTO) 10.9 x10^3/uL (2.2-4.8); NEUTROPHILS % (AUTO) 78.5 % (42.0-75.0); RED BLOOD COUNT 2.73 X10^6/uL (4.7-6.0); RED CELL DISTRIBUTION WIDTH 14.2 % (11.6-16.5); WHITE BLOOD COUNT 13.9 X10^3/uL (3.6-10.0)
[2022-01-31 05:22] LABS: ALANINE AMINOTRANSFERASE 24 Units/L (12-78); ALBUMIN 2.3 g/dL (3.4-5.0); ALKALINE PHOSPHATASE 93 Units/L (46-116); ASPARTATE AMINO TRANSFERASE 53 Units/L (15-37); BLOOD UREA NITROGEN 15 mg/dL (7-18); CALCIUM 7.1 mg/dL (8.5-10.1); CARBON DIOXIDE 24.9 mmol/L (21-32); CHLORIDE 110 mmol/L (98-107); COR CA(FOR HYPOALB) 8.5 mg/dL (8.5-10.1); COR NA(FOR HYPERGLY) 142 mmol/L (136-145); CREATININE 0.74 mg/dL (0.70-1.30); SODIUM 142 mmol/L (136-145); TOTAL PROTEIN 5.3 g/dL (6.4-8.2); eGFR NON BLACK RACES > 60 (>60)
[2022-01-31] MEDS: ZOSYN VIAL 4.5 GRAMS 4.5 G in NS 100 ML IV 100 ML IV SCH ×3 (06:10→22:55)
[2022-01-31] MEDS: ALBUMIN HUMAN 25%- 100 ML 100 ML IV SCH (08:16)
[2022-01-31] MEDS: MOTRIN TAB 600 MG PO PRN (11:43)
[2022-01-31 14:13] LABS: CREATININE 0.74 mg/dL (0.70-1.30); VANCOMYCIN,TROUGH 10.9 ug/mL (15-20)
[2022-01-31] MEDS ORDERED: ANUCORT-HC SUPP PR PRN (14:14)
[2022-01-31] MEDS ORDERED: PROTONIX TAB 40 MG PO SCH (15:00)
[2022-01-31] MEDS: ZOFRAN INJ 4 MG VIAL IVP PRN (21:12)
[2022-01-31] MEDS: MORPHINE SULFATE INJ 2 MG INJ IVP PRN (21:20)
[2022-02-01] MEDS: VANCOMYCIN IV *PREMIX 1 G/200 ML BAG 1 G/200 ML PIGGYBACK IV SCH ×3 (05:15→21:40)
[2022-02-01] MEDS: MORPHINE SULFATE INJ 2 MG INJ IVP PRN ×2 (05:59→15:00)
--- NOTE | 2022-02-01 06:10 | RAD ---
HISTORYAbdominal distensionSTUDYAcute abdominal seriesCOMPARISONNoneFINDINGSHypo inflation accentuates the heart size it is still likely enlarged. No congestive heart failure is noted. The lungs are hypoinflated but clear. The abdominal gas pattern is nonspecific and nonobstructive. No pneumoperitoneum is identified. No abnormal masses or abnormal calcifications are identified. Regional skeleton is intact.IMPRESSIONLungs hypoinflated but clearCardiomegaly without congestive heart failureUnremarkable flat and upright abdomen.Electronically signed by: MORIAH RAMOS (Feb 01, 2022 06:08:55)
[2022-02-01 06:30] LABS: ALANINE AMINOTRANSFERASE 27 Units/L (12-78); ALBUMIN 2.1 g/dL (3.4-5.0); ALKALINE PHOSPHATASE 80 Units/L (46-116); ASPARTATE AMINO TRANSFERASE 64 Units/L (15-37); BLOOD UREA NITROGEN 19 mg/dL (7-18); CALCIUM 7.1 mg/dL (8.5-10.1); CHLORIDE 111 mmol/L (98-107); COR CA(FOR HYPOALB) 8.6 mg/dL (8.5-10.1); CREATININE 0.76 mg/dL (0.70-1.30); SODIUM 142 mmol/L (136-145); TOTAL PROTEIN 4.7 g/dL (6.4-8.2); eGFR NON BLACK RACES > 60 (>60)
[2022-02-01 06:49] LABS: BASOPHILS # (AUTO) 0.1 X10^3/uL (0.0-0.1); EOSINOPHILS # (AUTO) 0.3 x10^3/uL (0.0-0.2); LYMPHOCYTES # (AUTO) 1.6 X10^3/uL (1.3-2.9); MONOCYTES # (AUTO) 0.5 x10^3/uL (0.3-0.8)
[2022-02-01 06:52] LABS: BASOPHILS % (AUTO) 0.5 % (0.2-1.0); EOSINOPHILS % (AUTO) 2.7 % (0.9-2.9); LYMPHOCYTES % (AUTO) 15.2 % (21.0-51.0); MEAN CORPUSCULAR HEMOGLOBIN 35.1 pg (27.0-34.0); MEAN CORPUSCULAR HGB CONC 35.8 g/dL (33.0-35.0); MEAN CORPUSCULAR VOLUME 98.1 fL (80.0-100.0); MEAN PLATELET VOLUME 7.8 fL (7.4-11.0); MONOCYTES % (AUTO) 4.4 % (0.0-13.0); NEUTROPHILS # (AUTO) 8.2 x10^3/uL (2.2-4.8); NEUTROPHILS % (AUTO) 77.2 % (42.0-75.0); RED BLOOD COUNT 1.94 X10^6/uL (4.7-6.0); RED CELL DISTRIBUTION WIDTH 14.3 % (11.6-16.5); WHITE BLOOD COUNT 10.7 X10^3/uL (3.6-10.0)
[2022-02-01 06:53] LABS: HEMOGLOBIN 6.8 g/dL (13.5-18.0)
[2022-02-01 06:54] LABS: HEMATOCRIT 19.1 % (42.0-54.0)
[2022-02-01] MEDS: ZOSYN VIAL 4.5 GRAMS 4.5 G in NS 100 ML IV 100 ML IV SCH ×3 (06:54→21:35)
[2022-02-01] MEDS: NS 1,000 ML IV 1,000 ML IV SCH ×2 (07:13→20:31)
[2022-02-01] MEDS: ALBUMIN HUMAN 25%- 100 ML 100 ML IV SCH (08:15)
[2022-02-01] MEDS: PROTONIX INJ 40 MG VIAL IVP SCH ×2 (08:16→20:32)
[2022-02-01] MEDS: CYTOTEC PO SCH ×3 (09:01→21:38)
[2022-02-01 09:38] LABS: INR 1.58 (0.8-1.3)
[2022-02-01] MEDS ORDERED: NS 250 ML IV 250 ML IV ONE (11:13)
[2022-02-01] MEDS ORDERED: DIPRIVAN VIAL 20 ML ONE (12:54)
[2022-02-01] MEDS: CARAFATE PO SCH ×2 (14:54→21:38)
[2022-02-01] MEDS: ZOFRAN INJ 4 MG VIAL IVP PRN (15:01)
--- NOTE | 2022-02-01 15:22 | RAD ---
EXAM: CHEST X-RAYHISTORY: Central line placement verification.TECHNIQUE: AP CXR dated February 01, 2022 at 2:37 PM.COMPARISON: CXR dated December 15, 2021.FINDINGS:There is a right internal jugular central venous catheter with distal tip in the right atrium. Partial withdrawal approximately 3.[address] to tip at the optimal proximal cavoatrial junction and mitigate risk of inducing cardiac ectopy. Recommend careful clinical correlation to ensure venous blood return.There is evidence for a shallow inspiratory effort with mild prominence of the bronchopulmonary markings and widening of the cardiac silhouette. Note that minimal CHF or volume overload cannot be excluded in this radiographic setting. Clinical correlation is advised.There is no gross focal lung consolidation, pleural effusion, or pneumothorax. The visualized bony structures are within normal limits.IMPRESSION:1. Right internal jugular central venous catheter with distal tip in the right atrium. Partial withdrawal approximately 3.[address] to tip at the optimal proximal cavoatrial junction and mitigate risk of inducing cardiac ectopy.2. Shallow inspiratory effort with mild prominence of the bronchopulmonary markings and widening of the cardiac silhouette (significantly improved appearance of infiltrates compared with the previous exam); DDX includes minimal CHF or volume overload in the appropriate clinical setting; consider mild bronchitis and interstitial pneumonia in the appropriate clinical setting.3. Recommend clinical correlation and appropriate follow-up x-ray evaluation to ensure complete clearance as clinically warranted.Electronically signed by: Alma Villarreal (Feb 01, 2022 15:20:47)
--- NOTE | 2022-02-01 15:32 | DR.UPDATE ---
H&P Update History and Physical Update: History and Physical reviewed and patient examined. Changes noted: NO Yes with the following:will place central line per Dr Rodriguez order. H&P Reviewed: Yes Patient was examined?: Yes Procedures (ALL) - Central Line Placement PCM.CLCO: written consent Time out performed: Yes Patient placed pm monitor/pulse ox: Yes MD prep: mask, gown, gloves, other Centrial line prep: chlorhexidine scrub, sterile drapes applied Local anesthsia used: lidocane 1% Ultrasound used for placement: Yes (Right IJ id'd via u/s and cannulation visualized) Central line lumen ininserted: triple Post procedure: sutured in place, good blood return, all ports aspirated, flushed,capped, sterile dressing applied Post procedure xray: no pneumothorax seen, other (withdrawn 3cm per radiologist reccomendation) Patient tolerated procedure: Yes Complications: none
[2022-02-01 16:51] LABS: HEMATOCRIT 21.4 % (42.0-54.0); HEMOGLOBIN 7.5 g/dL (13.5-18.0)
[2022-02-01] MEDS ORDERED: TYLENOL 325 MG TAB PO ONE (23:25)
[2022-02-02] MEDS ORDERED: NS 500 ML IV 500 ML IV ONE (02:48)
[2022-02-02] MEDS: CARAFATE PO SCH ×3 (06:16→22:00)
[2022-02-02] MEDS: CYTOTEC PO SCH ×5 (06:16→22:00)
[2022-02-02] MEDS: VANCOMYCIN IV *PREMIX 1 G/200 ML BAG 1 G/200 ML PIGGYBACK IV SCH ×3 (06:18→22:53)
[2022-02-02] MEDS: ZOSYN VIAL 4.5 GRAMS 4.5 G in NS 100 ML IV 100 ML IV SCH ×3 (06:45→21:58)
[2022-02-02 07:12] LABS: BASOPHILS # (AUTO) 0.1 X10^3/uL (0.0-0.1); BASOPHILS % (AUTO) 0.8 % (0.2-1.0); EOSINOPHILS # (AUTO) 0.2 x10^3/uL (0.0-0.2); EOSINOPHILS % (AUTO) 2.1 % (0.9-2.9); HEMATOCRIT 21.1 % (42.0-54.0); HEMOGLOBIN 7.6 g/dL (13.5-18.0); LYMPHOCYTES # (AUTO) 1.5 X10^3/uL (1.3-2.9); LYMPHOCYTES % (AUTO) 17.7 % (21.0-51.0); MEAN CORPUSCULAR HEMOGLOBIN 34.3 pg (27.0-34.0); MEAN CORPUSCULAR HGB CONC 35.8 g/dL (33.0-35.0); MEAN CORPUSCULAR VOLUME 95.7 fL (80.0-100.0); MEAN PLATELET VOLUME 7.8 fL (7.4-11.0); MONOCYTES # (AUTO) 0.4 x10^3/uL (0.3-0.8); MONOCYTES % (AUTO) 5.1 % (0.0-13.0); NEUTROPHILS # (AUTO) 6.4 x10^3/uL (2.2-4.8); NEUTROPHILS % (AUTO) 74.3 % (42.0-75.0); RED BLOOD COUNT 2.21 X10^6/uL (4.7-6.0); WHITE BLOOD COUNT 8.6 X10^3/uL (3.6-10.0)
[2022-02-02 07:22] LABS: ALANINE AMINOTRANSFERASE 31 Units/L (12-78); ALBUMIN 2.2 g/dL (3.4-5.0); ALKALINE PHOSPHATASE 70 Units/L (46-116); ASPARTATE AMINO TRANSFERASE 81 Units/L (15-37); BLOOD UREA NITROGEN 17 mg/dL (7-18); CALCIUM 6.8 mg/dL (8.5-10.1); CARBON DIOXIDE 24.5 mmol/L (21-32); CHLORIDE 109 mmol/L (98-107); COR CA(FOR HYPOALB) 8.2 mg/dL (8.5-10.1); CREATININE 0.86 mg/dL (0.70-1.30); SODIUM 139 mmol/L (136-145); TOTAL PROTEIN 4.7 g/dL (6.4-8.2); eGFR NON BLACK RACES > 60 (>60)
[2022-02-02] MEDS: NS 1,000 ML IV 1,000 ML IV SCH ×3 (08:14→22:01)
[2022-02-02] MEDS: ALBUMIN HUMAN 25%- 100 ML 100 ML IV SCH (08:50)
[2022-02-02] MEDS: PROTONIX INJ 40 MG VIAL IVP SCH ×2 (08:50→21:58)
[2022-02-02] MEDS: MORPHINE SULFATE INJ 2 MG INJ IVP PRN ×3 (09:23→21:58)
[2022-02-02] MEDS ORDERED: NS 100 ML IV 100 ML ONE (15:45)
[2022-02-02 22:14] LABS: CREATININE 0.86 mg/dL (0.70-1.30); VANCOMYCIN,TROUGH 15.5 ug/mL (15-20)
[2022-02-03] MEDS ORDERED: NS 500 ML IV 500 ML IV ONE (00:15)
[2022-02-03] MEDS ORDERED: POTASSIUM CHL 60 MEQ/NS 0.45% 500 ML IV PRN (03:52)
[2022-02-03] MEDS ORDERED: MICRO K EXTEN CAP 10 MEQ PO PRN (03:52)
[2022-02-03] MEDS ORDERED: POTASSIUM CHL 40 MEQ/NS 0.45% 500 ML IV PRN (03:52)
[2022-02-03] MEDS ORDERED: KLOR-CON PO PRN (03:52)
[2022-02-03] MEDS ORDERED: POTASSIUM CHLORIDE LIQ 20 MEQ UDC PO PRN (03:52)
[2022-02-03] MEDS ORDERED: K-RIDER 10 MEQ/NS 100 ML 10 MEQ/100 ML BAG IV PRN (03:52)
[2022-02-03] MEDS: ZOSYN VIAL 4.5 GRAMS 4.5 G in NS 100 ML IV 100 ML IV SCH ×3 (07:12→22:19)
[2022-02-03] MEDS: CARAFATE PO SCH ×3 (07:12→22:19)
[2022-02-03 07:43] LABS: BASOPHILS # (AUTO) 0.1 X10^3/uL (0.0-0.1); BASOPHILS % (AUTO) 0.7 % (0.2-1.0); EOSINOPHILS # (AUTO) 0.2 x10^3/uL (0.0-0.2); EOSINOPHILS % (AUTO) 2.3 % (0.9-2.9); HEMOGLOBIN 9.3 g/dL (13.5-18.0); LYMPHOCYTES # (AUTO) 1.6 X10^3/uL (1.3-2.9); LYMPHOCYTES % (AUTO) 16.5 % (21.0-51.0); MEAN CORPUSCULAR HEMOGLOBIN 33.3 pg (27.0-34.0); MEAN CORPUSCULAR HGB CONC 35.7 g/dL (33.0-35.0); MEAN CORPUSCULAR VOLUME 93.3 fL (80.0-100.0); MONOCYTES # (AUTO) 0.5 x10^3/uL (0.3-0.8); MONOCYTES % (AUTO) 4.9 % (0.0-13.0); NEUTROPHILS # (AUTO) 7.3 x10^3/uL (2.2-4.8); NEUTROPHILS % (AUTO) 75.6 % (42.0-75.0); RED BLOOD COUNT 2.78 X10^6/uL (4.7-6.0); RED CELL DISTRIBUTION WIDTH 17.8 % (11.6-16.5); WHITE BLOOD COUNT 9.6 X10^3/uL (3.6-10.0)
[2022-02-03] MEDS: VANCOMYCIN IV *PREMIX 1 G/200 ML BAG 1 G/200 ML PIGGYBACK IV SCH ×3 (08:00→23:30)
[2022-02-03 08:01] LABS: ALANINE AMINOTRANSFERASE 39 Units/L (12-78); ALBUMIN 2.6 g/dL (3.4-5.0); ALKALINE PHOSPHATASE 77 Units/L (46-116); ASPARTATE AMINO TRANSFERASE 95 Units/L (15-37); BLOOD UREA NITROGEN 13 mg/dL (7-18); CALCIUM 7.1 mg/dL (8.5-10.1); CARBON DIOXIDE 23.3 mmol/L (21-32); CHLORIDE 107 mmol/L (98-107); COR CA(FOR HYPOALB) 8.2 mg/dL (8.5-10.1); COR NA(FOR HYPERGLY) 138 mmol/L (136-145); CREATININE 0.89 mg/dL (0.70-1.30); SODIUM 137 mmol/L (136-145); TOTAL PROTEIN 5.4 g/dL (6.4-8.2); eGFR NON BLACK RACES > 60 (>60)
[2022-02-03] MEDS: PROTONIX INJ 40 MG VIAL IVP SCH ×2 (09:10→20:45)
[2022-02-03] MEDS: CYTOTEC PO SCH ×4 (09:10→20:45)
[2022-02-03] MEDS: MORPHINE SULFATE INJ 2 MG INJ IVP PRN ×3 (09:11→20:45)
[2022-02-03] MEDS: ALBUMIN HUMAN 25%- 100 ML 100 ML IV SCH (09:36)
[2022-02-03] MEDS: NS 1,000 ML IV 1,000 ML IV SCH (11:03)
[2022-02-03 11:22] VITALS: BMI 36.6
[2022-02-03] MEDS: K-DUR TAB 20 MEQ PO PRN (20:59)
[2022-02-03 22:23] LABS: CREATININE 0.91 mg/dL (0.70-1.30); VANCOMYCIN,TROUGH 15.3 ug/mL (15-20)
[2022-02-04] MEDS: NS 1,000 ML IV 1,000 ML IV SCH ×2 (00:54→13:32)
[2022-02-04] MEDS: ZOSYN VIAL 4.5 GRAMS 4.5 G in NS 100 ML IV 100 ML IV SCH ×3 (05:46→21:25)
[2022-02-04] MEDS: CARAFATE PO SCH ×3 (05:46→21:24)
[2022-02-04 06:57] LABS: BASOPHILS % (AUTO) 0.4 % (0.2-1.0); EOSINOPHILS # (AUTO) 0.2 x10^3/uL (0.0-0.2); EOSINOPHILS % (AUTO) 2.5 % (0.9-2.9); HEMATOCRIT 24.6 % (42.0-54.0); HEMOGLOBIN 8.8 g/dL (13.5-18.0); LYMPHOCYTES # (AUTO) 1.3 X10^3/uL (1.3-2.9); LYMPHOCYTES % (AUTO) 18.5 % (21.0-51.0); MEAN CORPUSCULAR HEMOGLOBIN 33.3 pg (27.0-34.0); MEAN CORPUSCULAR HGB CONC 35.7 g/dL (33.0-35.0); MEAN CORPUSCULAR VOLUME 93.2 fL (80.0-100.0); MEAN PLATELET VOLUME 8.1 fL (7.4-11.0); MONOCYTES # (AUTO) 0.6 x10^3/uL (0.3-0.8); MONOCYTES % (AUTO) 8.5 % (0.0-13.0); NEUTROPHILS # (AUTO) 4.9 x10^3/uL (2.2-4.8); NEUTROPHILS % (AUTO) 70.1 % (42.0-75.0); RED BLOOD COUNT 2.64 X10^6/uL (4.7-6.0); RED CELL DISTRIBUTION WIDTH 17.2 % (11.6-16.5)
[2022-02-04 07:17] LABS: ALANINE AMINOTRANSFERASE 34 Units/L (12-78); ALBUMIN 2.5 g/dL (3.4-5.0); ALKALINE PHOSPHATASE 69 Units/L (46-116); ASPARTATE AMINO TRANSFERASE 77 Units/L (15-37); BLOOD UREA NITROGEN 9 mg/dL (7-18); CALCIUM 7.1 mg/dL (8.5-10.1); CARBON DIOXIDE 23.5 mmol/L (21-32); CHLORIDE 106 mmol/L (98-107); COR CA(FOR HYPOALB) 8.3 mg/dL (8.5-10.1); CREATININE 0.82 mg/dL (0.70-1.30); SODIUM 138 mmol/L (136-145); TOTAL PROTEIN 5.1 g/dL (6.4-8.2); eGFR NON BLACK RACES > 60 (>60)
[2022-02-04] MEDS: MORPHINE SULFATE INJ 2 MG INJ IVP PRN ×3 (07:42→21:25)
[2022-02-04] MEDS: VANCOMYCIN IV *PREMIX 1 G/200 ML BAG 1 G/200 ML PIGGYBACK IV SCH ×3 (09:00→21:25)
[2022-02-04] MEDS: PROTONIX INJ 40 MG VIAL IVP SCH ×2 (09:03→21:24)
[2022-02-04] MEDS: ALBUMIN HUMAN 25%- 100 ML 100 ML IV SCH (09:03)
[2022-02-04] MEDS: CYTOTEC PO SCH ×4 (09:03→21:24)
[2022-02-04] MEDS: K-DUR TAB 20 MEQ PO PRN (09:03)
[2022-02-04] MEDS: MAGNESIUM SULFATE 1 GRAM/100 mL PREMIX 1 G/100 ML BAG IV PRN ×2 (16:07→17:30)
[2022-02-05] MEDS: TYLENOL 325 MG TAB PO PRN ×2 (01:56→23:21)
[2022-02-05] MEDS: NS 1,000 ML IV 1,000 ML IV SCH ×2 (03:05→14:13)
[2022-02-05] MEDS: CARAFATE PO SCH ×3 (05:34→21:13)
[2022-02-05] MEDS: ZOSYN VIAL 4.5 GRAMS 4.5 G in NS 100 ML IV 100 ML IV SCH ×3 (05:35→22:29)
[2022-02-05 06:35] LABS: BASOPHILS # (AUTO) 0.1 X10^3/uL (0.0-0.1); BASOPHILS % (AUTO) 1.2 % (0.2-1.0); EOSINOPHILS # (AUTO) 0.1 x10^3/uL (0.0-0.2); EOSINOPHILS % (AUTO) 2.4 % (0.9-2.9); HEMATOCRIT 23.3 % (42.0-54.0); HEMOGLOBIN 8.4 g/dL (13.5-18.0); LYMPHOCYTES # (AUTO) 0.9 X10^3/uL (1.3-2.9); LYMPHOCYTES % (AUTO) 17.6 % (21.0-51.0); MEAN CORPUSCULAR HEMOGLOBIN 33.8 pg (27.0-34.0); MEAN CORPUSCULAR HGB CONC 35.9 g/dL (33.0-35.0); MEAN CORPUSCULAR VOLUME 94.4 fL (80.0-100.0); MEAN PLATELET VOLUME 8.1 fL (7.4-11.0); MONOCYTES # (AUTO) 0.6 x10^3/uL (0.3-0.8); MONOCYTES % (AUTO) 11.4 % (0.0-13.0); NEUTROPHILS # (AUTO) 3.3 x10^3/uL (2.2-4.8); NEUTROPHILS % (AUTO) 67.4 % (42.0-75.0); RED BLOOD COUNT 2.47 X10^6/uL (4.7-6.0); RED CELL DISTRIBUTION WIDTH 17.5 % (11.6-16.5); WHITE BLOOD COUNT 4.9 X10^3/uL (3.6-10.0)
[2022-02-05 06:45] LABS: ALANINE AMINOTRANSFERASE 30 Units/L (12-78); ALBUMIN 2.5 g/dL (3.4-5.0); ALKALINE PHOSPHATASE 83 Units/L (46-116); ASPARTATE AMINO TRANSFERASE 58 Units/L (15-37); BLOOD UREA NITROGEN 8 mg/dL (7-18); CARBON DIOXIDE 23.9 mmol/L (21-32); CHLORIDE 106 mmol/L (98-107); COR CA(FOR HYPOALB) 8.2 mg/dL (8.5-10.1); COR NA(FOR HYPERGLY) 139 mmol/L (136-145); CREATININE 0.86 mg/dL (0.70-1.30); MAGNESIUM 1.6 mg/dL (1.7-2.9); SODIUM 138 mmol/L (136-145); TOTAL PROTEIN 5.1 g/dL (6.4-8.2); VANCOMYCIN,TROUGH 13.2 ug/mL (15-20); eGFR NON BLACK RACES > 60 (>60)
[2022-02-05] MEDS: VANCOMYCIN IV *PREMIX 1 G/200 ML BAG 1 G/200 ML PIGGYBACK IV SCH ×3 (07:30→21:00)
[2022-02-05] MEDS: CYTOTEC PO SCH ×4 (08:42→20:41)
[2022-02-05] MEDS: K-DUR TAB 20 MEQ PO PRN (08:43)
[2022-02-05] MEDS: ALBUMIN HUMAN 25%- 100 ML 100 ML IV SCH (09:30)
[2022-02-05] MEDS: PROTONIX INJ 40 MG VIAL IVP SCH ×2 (09:31→20:41)
[2022-02-05] MEDS: MORPHINE SULFATE INJ 2 MG INJ IVP PRN ×3 (09:31→20:42)
[2022-02-05] MEDS ORDERED: NS 250 ML IV 250 ML IV PRN (10:14)
[2022-02-05] MEDS ORDERED: COLACE CAP 100 MG PO ONE (10:40)
[2022-02-05] MEDS ORDERED: MILK OF MAGNESIA PO ONE (10:41)
[2022-02-05] MEDS: MAGNESIUM SULFATE 1 GRAM/100 mL PREMIX 1 G/100 ML BAG IV PRN ×2 (17:00→18:07)
[2022-02-06] MEDS: MORPHINE SULFATE INJ 2 MG INJ IVP PRN ×4 (02:29→23:00)
[2022-02-06] MEDS: NS 1,000 ML IV 1,000 ML IV SCH ×2 (03:06→16:34)
[2022-02-06] MEDS: TYLENOL 325 MG TAB PO PRN (03:30)
[2022-02-06] MEDS: CARAFATE PO SCH ×3 (05:07→21:12)
[2022-02-06] MEDS: VANCOMYCIN IV *PREMIX 1 G/200 ML BAG 1 G/200 ML PIGGYBACK IV SCH ×3 (05:50→21:12)
[2022-02-06] MEDS: ZOSYN VIAL 4.5 GRAMS 4.5 G in NS 100 ML IV 100 ML IV SCH ×3 (06:56→22:59)
[2022-02-06 07:31] LABS: HEMATOCRIT 27.9 % (42.0-54.0); HEMOGLOBIN 9.9 g/dL (13.5-18.0)
[2022-02-06] MEDS: CYTOTEC PO SCH ×4 (08:53→21:12)
[2022-02-06] MEDS ORDERED: DULCOLAX SUPPOSITORY 10 MG RECTAL ONE ×2 (08:57→21:00)
[2022-02-06] MEDS: PROTONIX INJ 40 MG VIAL IVP SCH ×2 (09:21→21:13)
[2022-02-06] MEDS: ALBUMIN HUMAN 25%- 100 ML 100 ML IV SCH (09:43)
[2022-02-06] MEDS ORDERED: ANCEF VIAL 1 GRAM ONE (12:06)
[2022-02-06] MEDS ORDERED: LR 1,000 ML IV 1,000 ML IV ONE (12:06)
[2022-02-06] MEDS ORDERED: NS 100 ML IV 100 ML ONE (12:07)
[2022-02-06] MEDS ORDERED: LIDOCAINE 2%-EPI 1:200,000 ONE (12:11)
[2022-02-06] MEDS ORDERED: POLYMYXIN B SULFATE ONE (12:11)
[2022-02-06] MEDS ORDERED: BETADINE SOLN ONE (12:13)
[2022-02-06] MEDS ORDERED: DILAUDID INJ ONE ×2 (12:42→12:51)
[2022-02-06] MEDS ORDERED: VERSED ONE (12:42)
[2022-02-06] MEDS ORDERED: XYLOCAINE 1 % (PLAIN) ONE (12:43)
[2022-02-06 15:10] LABS: CREATININE 1.01 mg/dL (0.70-1.30)
[2022-02-06] MEDS: MAGNESIUM SULFATE 1 GRAM/100 mL PREMIX 1 G/100 ML BAG IV PRN ×2 (21:13→23:22)
[2022-02-07] MEDS: TYLENOL 325 MG TAB PO PRN ×2 (03:52→20:57)
[2022-02-07] MEDS: VANCOMYCIN IV *PREMIX 1 G/200 ML BAG 1 G/200 ML PIGGYBACK IV SCH ×3 (05:03→22:46)
[2022-02-07] MEDS: NS 1,000 ML IV 1,000 ML IV SCH ×2 (05:03→19:53)
[2022-02-07] MEDS: CARAFATE PO SCH ×3 (05:03→21:00)
[2022-02-07] MEDS: MORPHINE SULFATE INJ 2 MG INJ IVP PRN ×4 (05:04→22:47)
[2022-02-07] MEDS: ZOSYN VIAL 4.5 GRAMS 4.5 G in NS 100 ML IV 100 ML IV SCH ×3 (06:06→21:00)
[2022-02-07 06:15] LABS: BASOPHILS % (AUTO) 0.7 % (0.2-1.0); EOSINOPHILS # (AUTO) 0.1 x10^3/uL (0.0-0.2); EOSINOPHILS % (AUTO) 3.3 % (0.9-2.9); HEMATOCRIT 27.1 % (42.0-54.0); HEMOGLOBIN 9.5 g/dL (13.5-18.0); LYMPHOCYTES # (AUTO) 0.9 X10^3/uL (1.3-2.9); LYMPHOCYTES % (AUTO) 21.7 % (21.0-51.0); MEAN CORPUSCULAR HEMOGLOBIN 32.9 pg (27.0-34.0); MEAN CORPUSCULAR HGB CONC 35.2 g/dL (33.0-35.0); MEAN CORPUSCULAR VOLUME 93.5 fL (80.0-100.0); MEAN PLATELET VOLUME 8.3 fL (7.4-11.0); MONOCYTES # (AUTO) 0.5 x10^3/uL (0.3-0.8); MONOCYTES % (AUTO) 11.4 % (0.0-13.0); NEUTROPHILS # (AUTO) 2.7 x10^3/uL (2.2-4.8); NEUTROPHILS % (AUTO) 62.9 % (42.0-75.0); RED BLOOD COUNT 2.89 X10^6/uL (4.7-6.0); RED CELL DISTRIBUTION WIDTH 17.7 % (11.6-16.5); WHITE BLOOD COUNT 4.2 X10^3/uL (3.6-10.0)
[2022-02-07 06:30] LABS: ALANINE AMINOTRANSFERASE 27 Units/L (12-78); ALBUMIN 2.7 g/dL (3.4-5.0); ALKALINE PHOSPHATASE 75 Units/L (46-116); ASPARTATE AMINO TRANSFERASE 55 Units/L (15-37); BLOOD UREA NITROGEN 10 mg/dL (7-18); CALCIUM 7.1 mg/dL (8.5-10.1); CARBON DIOXIDE 26.1 mmol/L (21-32); CHLORIDE 105 mmol/L (98-107); COR CA(FOR HYPOALB) 8.1 mg/dL (8.5-10.1); COR NA(FOR HYPERGLY) 137 mmol/L (136-145); CREATININE 0.83 mg/dL (0.70-1.30); MAGNESIUM 1.7 mg/dL (1.7-2.9); SODIUM 137 mmol/L (136-145); TOTAL PROTEIN 5.2 g/dL (6.4-8.2); eGFR NON BLACK RACES > 60 (>60)
[2022-02-07] MEDS: PROTONIX INJ 40 MG VIAL IVP SCH ×2 (09:47→20:57)
[2022-02-07] MEDS: CYTOTEC PO SCH ×4 (09:47→20:57)
[2022-02-07] MEDS: ALBUMIN HUMAN 25%- 100 ML 100 ML IV SCH (09:48)
[2022-02-07] MEDS: K-DUR TAB 20 MEQ PO PRN (09:49)
--- NOTE | 2022-02-07 09:52 | DR.PROGNOT ---
Hospital Progress Notes - Progress Note for Day of: Progress Note Date: 02/07/22 - Chief Complaint Chief Complaint: dressing was changed .. improved erythema and edema .. less pain .. - Past Medical Family Social History Past Med/Fam/Surg Hx: No changes since H&P Allergies: Allergies No Known Drug Allergies Allergy (Verified 12/15/21 18:25) - Review Of Systems ROS: No change since H&P - Vital Signs Vital Signs: Temperature 100.2 F Pulse Rate [Bilateral Radial] 83 Pulse Rate [Left Brachial] 90 Pulse Rate 78 Respiratory Rate 20 Blood Pressure [Left Arm] 116/58 Blood Pressure [Right Arm] 113/57 Blood Pressure 132/75 O2 Sat by Pulse Oximetry 95 - Physical Exam Oriented: Normal Eyes: Normal Respiratory: Normal Cardiovascular: Normal : Normal GI:Auscultation: Normal GI:Palpation: Normal Skin: Red (RLE and foot), Tender Musculoskeletal: Swelling (RLE, foot) Speech Pattern: Clear, Appropriate - Laboratory and Diagnostics Result Diagrams: 02/07/22 05:15 02/07/22 05:15 Labs: 02/05/22 23:48 Blood Blood Culture - Preliminary 02/05/22 23:45 Blood Blood Culture - Preliminary 02/02/22 01:50 Blood Blood Culture - Final 02/06/22 13:12 Foot - Right Wound Gram Stain - Final 02/02/22 01:27 Blood Blood Culture - Final 02/02/22 00:24 Catheter Tip - Other - Final 01/25/22 14:55 Blood Blood Culture - Final 01/25/22 14:50 Blood Blood Culture - Final Laboratory WBC 4.2 X10^3/uL (3.6-10.0) 02/07/22 05:15 RBC 2.89 X10^6/uL (4.7-6.0) L 02/07/22 05:15 Hgb 9.5 g/dL (13.5-18.0) L 02/07/22 05:15 Hct 27.1 % (42.0-54.0) L 02/07/22 05:15 MCV 93.5 fL (80.0-100.0) 02/07/22 05:15 MCH 32.9 pg (27.0-34.0) 02/07/22 05:15 MCHC 35.2 g/dL (33.0-35.0) H 02/07/22 05:15 RDW 17.7 % (11.6-16.5) H 02/07/22 05:15 Plt Count 91 X10^3/uL (150.0-450.0) L 02/07/22 05:15 Plt Count Comment Decreased (ADEQUATE) 01/29/22 04:50 MPV 8.3 fL (7.4-11.0) 02/07/22 05:15 Neut % (Auto) 62.9 % (42.0-75.0) 02/07/22 05:15 Lymph % (Auto) 21.7 % (21.0-51.0) 02/07/22 05:15 [place] % (Auto) 11.4 % (0.0-13.0) 02/07/22 05:15 Eos % (Auto) 3.3 % (0.9-2.9) H 02/07/22 05:15 Baso % (Auto) 0.7 % (0.2-1.0) 02/07/22 05:15 Neut # (Auto) 2.7 x10^3/uL (2.2-4.8) 02/07/22 05:15 Lymph # (Auto) 0.9 X10^3/uL (1.3-2.9) L 02/07/22 05:15 [place] # (Auto) 0.5 x10^3/uL (0.3-0.8) 02/07/22 05:15 Eos # (Auto) 0.1 x10^3/uL (0.0-0.2) 02/07/22 05:15 Baso # (Auto) 0.0 X10^3/uL (0.0-0.1) 02/07/22 05:15 Absolute Nucleated RBC 0.1 /100WBC 02/07/22 05:15 Total Counted 100 01/29/22 04:50 Neutrophils % (Manual) 70 % (39-76) 01/29/22 04:50 Band Neutrophils % 3 % (0-10) 01/29/22 04:50 Lymphocytes % (Manual) 13 % (13-43) 01/29/22 04:50 Monocytes % (Manual) 10 % (4-9) H 01/29/22 04:50 Eosinophils % (Manual) 3 % (0-6) 01/29/22 04:50 Metamyelocytes % 1 01/29/22 04:50 Myelocytes % 1 01/27/22 05:28 Smudge Cells Slight A 01/28/22 04:45 Plt Morphology Comment Normal (NORMAL) 01/29/22 04:50 RBC Morphology Normal (NORMAL) 01/29/22 04:50 PT 18.3 SECONDS (11.8-14.3) 02/01/22 09:20 INR Target Range - 02/01/22 09:20 INR 1.58 (0.8-1.3) H 02/01/22 09:20 D-Dimer 2.56 ug/ml (0.0-0.57) H 01/25/22 14:50 Sodium 137 mmol/L (136-145) 02/07/22 05:15 Corrected Sodium 137 mmol/L (136-145) 02/07/22 05:15 Potassium 3.7 mmol/L (3.5-5.1) 02/07/22 05:15 Chloride 105 mmol/L (98-107) 02/07/22 05:15 Carbon Dioxide 26.1 mmol/L (21-32) 02/07/22 05:15 BUN 10 mg/dL (7-18) 02/07/22 05:15 Creatinine 0.83 mg/dL (0.70-1.30) 02/07/22 05:15 Est GFR (MDRD) Af Amer > 60 (>60) 02/07/22 05:15 Est GFR (MDRD) Non-Af > 60 (>60) 02/07/22 05:15 Glucose 116 mg/dL (65-99) H 02/07/22 05:15 Lactic Acid 2.2 mmol/L (0.4-2.0) H 01/25/22 14:50 Calcium 7.1 mg/dL (8.5-10.1) L 02/07/22 05:15 Corrected Calcium 8.1 mg/dL (8.5-10.1) L 02/07/22 05:15 Magnesium 1.7 mg/dL (1.7-2.9) 02/07/22 05:15 Total Bilirubin 1.00 mg/dL (0.2-1.0) 02/07/22 05:15 AST 55 Units/L (15-37) H 02/07/22 05:15 ALT 27 Units/L (12-78) 02/07/22 05:15 Alkaline Phosphatase 75 Units/L (46-116) 02/07/22 05:15 Total Protein 5.2 g/dL (6.4-8.2) L 02/07/22 05:15 Albumin 2.7 g/dL (3.4-5.0) L 02/07/22 05:15 Globulin 2.5 g/dL (2.5-4.5) 02/07/22 05:15 Albumin/Globulin Ratio 1.1 Ratio (1.1-2.1) 02/07/22 05:15 Stool Description 175g black liq mucus 01/31/22 20:43 Stl Occult Blood (IFOB) Positive (NEGATIVE) A 01/31/22 20:43 Vancomycin Trough 13.0 ug/mL (15-20) L 02/06/22 14:25 SARS-CoV-2 (PCR) Negative (NEGATIVE) 01/25/22 14:43 Blood Type A POSITIVE 02/05/22 12:20 Antibody Screen Negative 02/05/22 12:20 Crossmatch See Detail 02/05/22 12:20 - Assessment and Plan 2: post op I&D Lt foot abscess .. same local care and IV ABT awaiting C&S . diabetic control . - Problem Patient Problems: Patient Problems Cellulitis of right lower extremity (Acute) L03.115
[2022-02-07] MEDS: MAGNESIUM SULFATE 1 GRAM/100 mL PREMIX 1 G/100 ML BAG IV PRN ×2 (12:59→20:58)
[2022-02-08] MEDS: MORPHINE SULFATE INJ 2 MG INJ IVP PRN (05:00)
[2022-02-08] MEDS: CARAFATE PO SCH (05:01)
[2022-02-08] MEDS: VANCOMYCIN IV *PREMIX 1 G/200 ML BAG 1 G/200 ML PIGGYBACK IV SCH (05:02)
[2022-02-08] MEDS: ZOSYN VIAL 4.5 GRAMS 4.5 G in NS 100 ML IV 100 ML IV SCH (06:02)
[2022-02-08] MEDS: NS 1,000 ML IV 1,000 ML IV SCH (06:31)
[2022-02-08 06:38] LABS: BASOPHILS % (AUTO) 0.8 % (0.2-1.0); EOSINOPHILS # (AUTO) 0.1 x10^3/uL (0.0-0.2); EOSINOPHILS % (AUTO) 4.1 % (0.9-2.9); HEMATOCRIT 27.6 % (42.0-54.0); HEMOGLOBIN 9.8 g/dL (13.5-18.0); LYMPHOCYTES # (AUTO) 1.1 X10^3/uL (1.3-2.9); LYMPHOCYTES % (AUTO) 31.9 % (21.0-51.0); MEAN CORPUSCULAR HEMOGLOBIN 33.4 pg (27.0-34.0); MEAN CORPUSCULAR HGB CONC 35.5 g/dL (33.0-35.0); MEAN CORPUSCULAR VOLUME 94.2 fL (80.0-100.0); MEAN PLATELET VOLUME 8.4 fL (7.4-11.0); MONOCYTES # (AUTO) 0.3 x10^3/uL (0.3-0.8); MONOCYTES % (AUTO) 9.4 % (0.0-13.0); NEUTROPHILS # (AUTO) 1.9 x10^3/uL (2.2-4.8); NEUTROPHILS % (AUTO) 53.8 % (42.0-75.0); RED BLOOD COUNT 2.92 X10^6/uL (4.7-6.0); RED CELL DISTRIBUTION WIDTH 17.4 % (11.6-16.5); WHITE BLOOD COUNT 3.5 X10^3/uL (3.6-10.0)
[2022-02-08 06:50] LABS: ALANINE AMINOTRANSFERASE 30 Units/L (12-78); ALBUMIN 2.9 g/dL (3.4-5.0); ALKALINE PHOSPHATASE 71 Units/L (46-116); ASPARTATE AMINO TRANSFERASE 54 Units/L (15-37); BLOOD UREA NITROGEN 8 mg/dL (7-18); CALCIUM 7.5 mg/dL (8.5-10.1); CARBON DIOXIDE 25.4 mmol/L (21-32); CHLORIDE 107 mmol/L (98-107); COR CA(FOR HYPOALB) 8.4 mg/dL (8.5-10.1); CREATININE 0.78 mg/dL (0.70-1.30); MAGNESIUM 1.7 mg/dL (1.7-2.9); SODIUM 139 mmol/L (136-145); TOTAL PROTEIN 5.5 g/dL (6.4-8.2); eGFR NON BLACK RACES > 60 (>60)
[2022-02-08] MEDS: ALBUMIN HUMAN 25%- 100 ML 100 ML IV SCH (08:47)
[2022-02-08] MEDS: K-DUR TAB 20 MEQ PO PRN (08:48)
[2022-02-08] MEDS: CYTOTEC PO SCH (08:48)
[2022-02-08] MEDS: PROTONIX INJ 40 MG VIAL IVP SCH (08:49)
--- NOTE | 2022-02-08 09:41 | DR.PROGNOT ---
Hospital Progress Notes - Progress Note for Day of: Progress Note Date: 02/08/22 - Chief Complaint Chief Complaint: dressing was changed .. improved erythema and edema .. less pain .. - Past Medical Family Social History Past Med/Fam/Surg Hx: No changes since H&P Allergies: Allergies No Known Drug Allergies Allergy (Verified 12/15/21 18:25) - Review Of Systems ROS: No change since H&P - Vital Signs Vital Signs: Temperature 98.4 F Pulse Rate [Bilateral Radial] 83 Pulse Rate [Left Brachial] 77 Pulse Rate 78 Respiratory Rate 18 Blood Pressure [Left Arm] 116/58 Blood Pressure [Right Arm] 117/55 Blood Pressure 132/75 O2 Sat by Pulse Oximetry 97 - Physical Exam Oriented: Normal Eyes: Normal Respiratory: Normal Cardiovascular: Normal : Normal GI:Auscultation: Normal GI:Palpation: Normal Skin: Tender, Other (moderate erythema and edema dorsal RT foot with moderate drainage ..no abscess , no necrosis ..) Musculoskeletal: Swelling (RLE, foot) Speech Pattern: Clear, Appropriate - Laboratory and Diagnostics Result Diagrams: 02/08/22 05:29 02/08/22 05:29 Labs: 02/06/22 13:12 Foot - Right Wound Gram Stain - Final 02/06/22 13:12 Foot - Right Wound Culture - Preliminary 02/05/22 23:48 Blood Blood Culture - Preliminary 02/05/22 23:45 Blood Blood Culture - Preliminary 02/02/22 01:50 Blood Blood Culture - Final 02/02/22 01:27 Blood Blood Culture - Final 02/02/22 00:24 Catheter Tip - Other - Final 01/25/22 14:55 Blood Blood Culture - Final 01/25/22 14:50 Blood Blood Culture - Final Laboratory WBC 3.5 X10^3/uL (3.6-10.0) L 02/08/22 05:29 RBC 2.92 X10^6/uL (4.7-6.0) L 02/08/22 05:29 Hgb 9.8 g/dL (13.5-18.0) L 02/08/22 05:29 Hct 27.6 % (42.0-54.0) L 02/08/22 05:29 MCV 94.2 fL (80.0-100.0) 02/08/22 05:29 MCH 33.4 pg (27.0-34.0) 02/08/22 05:29 MCHC 35.5 g/dL (33.0-35.0) H 02/08/22 05:29 RDW 17.4 % (11.6-16.5) H 02/08/22 05:29 Plt Count 94 X10^3/uL (150.0-450.0) L 02/08/22 05:29 Plt Count Comment Decreased (ADEQUATE) 01/29/22 04:50 MPV 8.4 fL (7.4-11.0) 02/08/22 05:29 Neut % (Auto) 53.8 % (42.0-75.0) 02/08/22 05:29 Lymph % (Auto) 31.9 % (21.0-51.0) 02/08/22 05:29 [place] % (Auto) 9.4 % (0.0-13.0) 02/08/22 05:29 Eos % (Auto) 4.1 % (0.9-2.9) H 02/08/22 05:29 Baso % (Auto) 0.8 % (0.2-1.0) 02/08/22 05:29 Neut # (Auto) 1.9 x10^3/uL (2.2-4.8) L 02/08/22 05:29 Lymph # (Auto) 1.1 X10^3/uL (1.3-2.9) L 02/08/22 05:29 [place] # (Auto) 0.3 x10^3/uL (0.3-0.8) 02/08/22 05:29 Eos # (Auto) 0.1 x10^3/uL (0.0-0.2) 02/08/22 05:29 Baso # (Auto) 0.0 X10^3/uL (0.0-0.1) 02/08/22 05:29 Absolute Nucleated RBC 0.0 /100WBC 02/08/22 05:29 Total Counted 100 01/29/22 04:50 Neutrophils % (Manual) 70 % (39-76) 01/29/22 04:50 Band Neutrophils % 3 % (0-10) 01/29/22 04:50 Lymphocytes % (Manual) 13 % (13-43) 01/29/22 04:50 Monocytes % (Manual) 10 % (4-9) H 01/29/22 04:50 Eosinophils % (Manual) 3 % (0-6) 01/29/22 04:50 Metamyelocytes % 1 01/29/22 04:50 Myelocytes % 1 01/27/22 05:28 Smudge Cells Slight A 01/28/22 04:45 Plt Morphology Comment Normal (NORMAL) 01/29/22 04:50 RBC Morphology Normal (NORMAL) 01/29/22 04:50 PT 18.3 SECONDS (11.8-14.3) 02/01/22 09:20 INR Target Range - 02/01/22 09:20 INR 1.58 (0.8-1.3) H 02/01/22 09:20 D-Dimer 2.56 ug/ml (0.0-0.57) H 01/25/22 14:50 Sodium 139 mmol/L (136-145) 02/08/22 05:29 Corrected Sodium TNP 02/08/22 05:29 Potassium 3.4 mmol/L (3.5-5.1) L 02/08/22 05:29 Chloride 107 mmol/L (98-107) 02/08/22 05:29 Carbon Dioxide 25.4 mmol/L (21-32) 02/08/22 05:29 BUN 8 mg/dL (7-18) 02/08/22 05:29 Creatinine 0.78 mg/dL (0.70-1.30) 02/08/22 05:29 Est GFR (MDRD) Af Amer > 60 (>60) 02/08/22 05:29 Est GFR (MDRD) Non-Af > 60 (>60) 02/08/22 05:29 Glucose 78 mg/dL (65-99) 02/08/22 05:29 Lactic Acid 2.2 mmol/L (0.4-2.0) H 01/25/22 14:50 Calcium 7.5 mg/dL (8.5-10.1) L 02/08/22 05:29 Corrected Calcium 8.4 mg/dL (8.5-10.1) L 02/08/22 05:29 Magnesium 1.7 mg/dL (1.7-2.9) 02/08/22 05:29 Total Bilirubin 1.00 mg/dL (0.2-1.0) 02/08/22 05:29 AST 54 Units/L (15-37) H 02/08/22 05:29 ALT 30 Units/L (12-78) 02/08/22 05:29 Alkaline Phosphatase 71 Units/L (46-116) 02/08/22 05:29 Total Protein 5.5 g/dL (6.4-8.2) L 02/08/22 05:29 Albumin 2.9 g/dL (3.4-5.0) L 02/08/22 05:29 Globulin 2.6 g/dL (2.5-4.5) 02/08/22 05:29 Albumin/Globulin Ratio 1.1 Ratio (1.1-2.1) 02/08/22 05:29 Stool Description 175g black liq mucus 01/31/22 20:43 Stl Occult Blood (IFOB) Positive (NEGATIVE) A 01/31/22 20:43 Vancomycin Trough 13.0 ug/mL (15-20) L 02/06/22 14:25 Random Vancomycin 16.7 ug/mL 02/07/22 21:30 SARS-CoV-2 (PCR) Negative (NEGATIVE) 01/25/22 14:43 Blood Type A POSITIVE 02/05/22 12:20 Antibody Screen Negative 02/05/22 12:20 Crossmatch See Detail 02/05/22 12:20 - Assessment and Plan 2: post op I&D Lt foot abscess .. same local care and IV ABT awaiting C&S . diabetic control . soak the foot with H2O2 and Saline for 10 mnts then pack with Iodoform , ABD and Tye .. - Problem Patient Problems: Patient Problems Cellulitis of right lower extremity (Acute) L03.115
[2022-02-08] MEDS ORDERED: NS IRRIGATION* 500 ML IR ONE (10:11)
[2022-02-08 10:21] VITALS: BP 147/72
== END 2022-02-08 11:50 | disposition home or self-care (01) | DRG 602 ==
LOC: MED/SURG 13:32 → ER 13:32 → MED/SURG 18:09
PROVIDERS: ADMIT Internal Medicine; ATTEND Obstetrics & Gynecology Obstetrics
DX: K26.0 Acute duodenal ulcer with hemorrhage; L03.115 Cellulitis of right lower limb; K44.9 Diaphragmatic hernia without obstruction or gangrene; K92.1 Melena; B95.1 Streptococcus, group B, as the cause of diseases classified elsewhere; R79.1 Abnormal coagulation profile; B19.20 Unspecified viral hepatitis C without hepatic coma; R06.02 Shortness of breath; I87.8 Other specified disorders of veins; Z20.822 Contact with and (suspected) exposure to COVID-19; R26.89 Other abnormalities of gait and mobility; I10 Essential (primary) hypertension; D64.89 Other specified anemias; E11.65 Type 2 diabetes mellitus with hyperglycemia

== ENCOUNTER 2022-07-22 14:31 | Observation (INO) ==
--- NOTE | 2022-07-22 14:46 | DR.EXTPAIN ---
HPI Time seen Time Seen by Provider: 07/22/22 14:45 PCP Primary Care Physician: cara Complaint/Symptoms Chief Complaint:: pt c/o of swelling and wound on left leg that came up sunday and swelling that has been going on since january Self Treatment fo Chief Complaint: motrin COVID-19 Coronavirus risk:travel/contact w/high risk person: No Has patient experienced Coronavirus symptoms: No Source History Provided: Patient Mode of arrival Mode of Arrival: Ambulatory Timing Onset of Chief Complaint: 07/19/22 PMH PMH Past Medical History: Yes Past Medical History: Diabetes and Hypertension Past Surgical History: No Surgical History: Other Family History History of Family Medical Conditions: Yes Family Medical History: Diabetes Mellitus Social History Type of Tobacco Use: Cigarettes Does any household member use tobacco: Yes Alcohol Use: None Do you use any recreational Drugs:: No Lives With: Alone Lives Where: Home Travel Risk Coronavirus risk:travel/contact w/high risk person: No Has patient experienced Coronavirus symptoms: No Infectious screening In the last 2 months have you had wt loss of >10#?: NO Have you had fever, night sweats or hemotysis?: No Have you traveled outside the country in the last 6 months?: No Isolation: Standard PE Vital Signs Vitals: Temperature 98.1 F Pulse Rate [Left] 89 Pulse Rate 90 Respiratory Rate 18 Blood Pressure [Left Arm] 161/81 Blood Pressure [Right Arm] 147/72 Blood Pressure 150/75 O2 Sat by Pulse Oximetry 99 ROR Labs Reviewed Result Diagrams: 07/22/22 15:08 07/22/22 15:08 Laboratory: WBC 6.0 X10^3/uL (3.6-10.0) 07/22/22 15:08 RBC 3.32 X10^6/uL (4.7-6.0) L 07/22/22 15:08 Hgb 11.3 g/dL (13.5-18.0) L 07/22/22 15:08 Hct 31.4 % (42.0-54.0) L 07/22/22 15:08 MCV 94.5 fL (80.0-100.0) 07/22/22 15:08 MCH 33.9 pg (27.0-34.0) 07/22/22 15:08 MCHC 35.9 g/dL (33.0-35.0) H 07/22/22 15:08 RDW 13.9 % (11.6-16.5) 07/22/22 15:08 Plt Count 93 X10^3/uL (150.0-450.0) L 07/22/22 15:08 MPV 7.9 fL (7.4-11.0) 07/22/22 15:08 Neut % (Auto) 66.7 % (42.0-75.0) 07/22/22 15:08 Lymph % (Auto) 18.7 % (21.0-51.0) L 07/22/22 15:08 [place] % (Auto) 9.3 % (0.0-13.0) 07/22/22 15:08 Eos % (Auto) 4.3 % (0.9-2.9) H 07/22/22 15:08 Baso % (Auto) 1.0 % (0.2-1.0) 07/22/22 15:08 Neut # (Auto) 4.0 x10^3/uL (2.2-4.8) 07/22/22 15:08 Lymph # (Auto) 1.1 X10^3/uL (1.3-2.9) L 07/22/22 15:08 [place] # (Auto) 0.6 x10^3/uL (0.3-0.8) 07/22/22 15:08 Eos # (Auto) 0.3 x10^3/uL (0.0-0.2) H 07/22/22 15:08 Baso # (Auto) 0.1 X10^3/uL (0.0-0.1) 07/22/22 15:08 Absolute Nucleated RBC 0.0 /100WBC 07/22/22 15:08 D-Dimer 3.16 ug/ml (0.0-0.57) H 07/22/22 15:08 Sodium 142 mmol/L (136-145) 07/22/22 15:08 Corrected Sodium TNP 07/22/22 15:08 Potassium 3.1 mmol/L (3.5-5.1) L 07/22/22 15:08 Chloride 109 mmol/L (98-107) H 07/22/22 15:08 Carbon Dioxide 27.0 mmol/L (21-32) 07/22/22 15:08 BUN 11 mg/dL (7-18) 07/22/22 15:08 Creatinine 0.90 mg/dL (0.70-1.30) 07/22/22 15:08 Est GFR (MDRD) Af Amer > 60 (>60) 07/22/22 15:08 Est GFR (MDRD) Non-Af > 60 (>60) 07/22/22 15:08 Glucose 100 mg/dL (65-99) H 07/22/22 15:08 Lactic Acid 1.0 mmol/L (0.4-2.0) 07/22/22 15:08 Calcium 8.0 mg/dL (8.5-10.1) L 07/22/22 15:08 Corrected Calcium 9.3 mg/dL (8.5-10.1) 07/22/22 15:08 Total Bilirubin 1.50 mg/dL (0.2-1.0) H 07/22/22 15:08 AST 73 Units/L (15-37) H 07/22/22 15:08 ALT 41 Units/L (12-78) 07/22/22 15:08 Alkaline Phosphatase 97 Units/L (46-116) 07/22/22 15:08 Creatine Kinase 103 Units/L (39-308) 07/22/22 15:08 Troponin I High Sens 13.2 ng/L (4.0-60.0) 07/22/22 15:08 B-Natriuretic Peptide 89.9 pg/mL (0-79) H 07/22/22 15:08 Total Protein 6.4 g/dL (6.4-8.2) 07/22/22 15:08 Albumin 2.4 g/dL (3.4-5.0) L 07/22/22 15:08 Globulin 4.0 g/dL (2.5-4.5) 07/22/22 15:08 Albumin/Globulin Ratio 0.6 Ratio (1.1-2.1) L 07/22/22 15:08 Opioid Opioid Risk Tool Age (Topher box if 16-45): No History of Preadolescent Sexual Abuse: No Total: 0 Total Score Risk Category: Low Risk Copyright: Desmond BOWLING predicting aberrant behaviors Discharge Plan Discharge Plan Patient Disposition: 09 ADMITTED INPATIENT Condition: Stable Orders to Discharge Patient Discharge Orders: Transfer (Routine); Ordered 07/22/22 Ordered By: SANDRA ANAYA
[2022-07-22 15:12] LABS: BASOPHILS # (AUTO) 0.1 X10^3/uL (0.0-0.1); EOSINOPHILS # (AUTO) 0.3 x10^3/uL (0.0-0.2); EOSINOPHILS % (AUTO) 4.3 % (0.9-2.9); HEMATOCRIT 31.4 % (42.0-54.0); HEMOGLOBIN 11.3 g/dL (13.5-18.0); LYMPHOCYTES # (AUTO) 1.1 X10^3/uL (1.3-2.9); LYMPHOCYTES % (AUTO) 18.7 % (21.0-51.0); MEAN CORPUSCULAR HEMOGLOBIN 33.9 pg (27.0-34.0); MEAN CORPUSCULAR HGB CONC 35.9 g/dL (33.0-35.0); MEAN CORPUSCULAR VOLUME 94.5 fL (80.0-100.0); MEAN PLATELET VOLUME 7.9 fL (7.4-11.0); MONOCYTES # (AUTO) 0.6 x10^3/uL (0.3-0.8); MONOCYTES % (AUTO) 9.3 % (0.0-13.0); NEUTROPHILS % (AUTO) 66.7 % (42.0-75.0); RED BLOOD COUNT 3.32 X10^6/uL (4.7-6.0); RED CELL DISTRIBUTION WIDTH 13.9 % (11.6-16.5)
[2022-07-22 15:29] LABS: ALANINE AMINOTRANSFERASE 41 Units/L (12-78); ALBUMIN 2.4 g/dL (3.4-5.0); ALKALINE PHOSPHATASE 97 Units/L (46-116); ASPARTATE AMINO TRANSFERASE 73 Units/L (15-37); BLOOD UREA NITROGEN 11 mg/dL (7-18); CHLORIDE 109 mmol/L (98-107); COR CA(FOR HYPOALB) 9.3 mg/dL (8.5-10.1); CREATINE KINASE 103 Units/L (39-308); SODIUM 142 mmol/L (136-145); TOTAL PROTEIN 6.4 g/dL (6.4-8.2); eGFR NON BLACK RACES > 60 (>60)
--- NOTE | 2022-07-22 17:10 | VAS ---
EXAM: BILATERAL LOWER EXTREMITY VENOUS DOPPLER ULTRASOUNDHISTORY: Bilateral lower extremity swelling and pain. Positive D-dimer.TECHNIQUE: The lower extremity veins were interrogated with a high-frequency linear transducer, employing grayscale imaging, duplex Doppler and color flow Doppler imaging.COMPARISON: None available.FINDINGS:RIGHT: Interrogation of the common femoral vein, superficial femoral vein, popliteal vein, and posterior tibial vein demonstrates no intraluminal filling defects, no lack of vein compressibility, or no absence of intraluminal color flow Doppler signal to suggest deep venous thrombosis. There is no evidence for luminal thrombosis of the saphenous veins to suggest superficial vein thrombosis. There is extensive distal subcutaneous soft tissue edema. No popliteal lesion reminiscent of a Marquez's cyst is seen. No gross arterial aneurysm is incidentally noted.LEFT: Interrogation of the common femoral vein, superficial femoral vein, popliteal vein, and posterior tibial vein demonstrates no intraluminal filling defects, no lack of vein compressibility, or no absence of intraluminal color flow Doppler signal to suggest deep venous thrombosis. There is no evidence for luminal thrombosis of the saphenous veins to suggest superficial vein thrombosis. There is extensive distal subcutaneous soft tissue edema. No popliteal lesion reminiscent of a Marquez's cyst is seen. No gross arterial aneurysm is incidentally noted.Note: DVT could be missed early in the disease when clot burden is minimal. For patients with moderate and high pretest probability of DVT and negative ultrasound, the [employer] clinical guidelines recommend testing with a d-dimer assay or repeat ultrasound in 5-7 days. If symptoms worsen, the Society of radiologists in ultrasound recommend repeating ultrasound even earlier.IMPRESSION:1. No evidence for DVT seen bilaterally.2. Extensive distal subcutaneous soft tissue edema seen bilaterally.3. No abnormal fluid collection or Marquez's cyst seen bilaterally.Electronically signed by: Alma Villarreal (Jul 22, 2022 17:07:43)
--- NOTE | 2022-07-22 17:16 | CT ---
EXAM: CTA CHEST WITH INTRAVENOUS CONTRASTHISTORY: Elevated D-dimer. Bilateral lower extremity swelling.TECHNIQUE: Spiral axial CT images are obtained through the chest with the administration of intravenous contrast. Coronal, sagittal and 3D MIP images are reformatted.DOSIMETRY: Total DLP 648.14 mGycm; CTDI 181.18 mGyCOMPARISON: None available.FINDINGS:CARDIOVASCULAR: There is no evidence for pulmonary embolic disease. There is cardiomegaly with four-chamber enlargement. No pericardial effusion is seen.MEDIASTINUM AND NANETTE: No mass lesion, lymphadenopathy, emphysema, or abnormal fluid collection is seen.LUNGS: The pulmonary vascularity and interstitial markings are mildly prominent (especially in the dependent and lower lung oh, in keeping with mild CHF or volume overload in the appropriate clinical setting. The there is no acute parenchymal infiltrate, lung nodule, or endobronchial obstructing lesion seen. No pleural effusion or pneumothorax is evident.CHEST WALL: There is an approximately 1.9 cm transverse by 1.5 cm AP sebaceous cyst seen in the left posterior paraspinal subcutaneous fascia at the level of the T9 spinous process. Axial image 97. There are no chest wall lesions seen. The visualized bony structures are within normal limits. No axillary lymphadenopathy is noted.UPPER ABDOMEN: Lobular hepatic surface contour and caudate lobe hypertrophy consistent with hepatic cirrhosis in the appropriate clinical setting. Clinical correlation is advised. There is splenomegaly (18.1 cm AP) in keeping with sequela of portal hypertension. There is splenic hilar varices in keeping with sequela of portal hypertension. There is cholelithiasis (mid to calcified dependent intraluminal gallstones in the proximal gallbladder lumen) with thickened appearance of the gallbladder wall (7 mm) which could represent chronic or acute cholecystitis in the appropriate clinical setting. Axial image 120?137. Consider follow-up evaluation with HIDA scan to rule out cystic duct obstruction and acute cholecystitis as clinically warranted.IMPRESSION:1. No evidence for pulmonary embolic disease.2. No evidence for aortic aneurysm or aortic dissection.3. Cardiomegaly and diffusely prominent pulmonary vascularity and interstitial markings, consistent with mild CHF or volume overload in the appropriate clinical setting. Clinical correlation is advised and appropriate follow-up evaluation is recommended.4. No gross endobronchial obstructing lesion is seen.5. Lobular hepatic surface contour and caudate lobe hypertrophy consistent with hepatic cirrhosis in the appropriate clinical setting. Clinical correlation is advised.6. Splenomegaly (18.1 cm AP) in keeping with sequela of portal hypertension.7. Splenic hilar varices in keeping with sequela of portal hypertension8. Cholelithiasis (mid to calcified dependent intraluminal gallstones in the proximal gallbladder lumen) with thickened appearance of the gallbladder wall (7 mm) which could represent chronic or acute cholecystitis in the appropriate clinical setting. Axial image 120?137. Consider follow-up evaluation with HIDA scan to rule out cystic duct obstruction and acute cholecystitis as clinically warranted.9. Approximately 1.9 cm transverse by 1.5 cm AP sebaceous cyst seen in the left posterior paraspinal subcutaneous fascia at the level of the T9 spinous process. Axial image 97.Electronically signed by: Alma Villarreal (Jul 22, 2022 17:15:24)
[2022-07-22] MEDS ORDERED: LASIX IVP ONE ×2 (17:59→18:04)
[2022-07-22] MEDS ORDERED: KLOR-CON PO ONE (18:01)
[2022-07-22] MEDS ORDERED: KLOR-CON ONE (18:05)
[2022-07-22] MEDS ORDERED: LASIX IVP SCH (21:00)
[2022-07-22 21:14] VITALS: BMI 36.6
[2022-07-22] MEDS: NS 1,000 ML IV 1,000 ML IV SCH (22:03)
[2022-07-22] MEDS: ANCEF VIAL 1 GRAM IVP SCH (22:03)
[2022-07-23 05:06] LABS: BASOPHILS % (AUTO) 0.5 % (0.2-1.0); EOSINOPHILS # (AUTO) 0.2 x10^3/uL (0.0-0.2); EOSINOPHILS % (AUTO) 4.3 % (0.9-2.9); HEMOGLOBIN 10.7 g/dL (13.5-18.0); LYMPHOCYTES # (AUTO) 1.2 X10^3/uL (1.3-2.9); LYMPHOCYTES % (AUTO) 21.6 % (21.0-51.0); MEAN CORPUSCULAR HEMOGLOBIN 33.7 pg (27.0-34.0); MEAN CORPUSCULAR HGB CONC 35.8 g/dL (33.0-35.0); MEAN PLATELET VOLUME 7.9 fL (7.4-11.0); MONOCYTES # (AUTO) 0.5 x10^3/uL (0.3-0.8); MONOCYTES % (AUTO) 8.7 % (0.0-13.0); NEUTROPHILS # (AUTO) 3.7 x10^3/uL (2.2-4.8); NEUTROPHILS % (AUTO) 64.9 % (42.0-75.0); RED BLOOD COUNT 3.19 X10^6/uL (4.7-6.0); RED CELL DISTRIBUTION WIDTH 14.2 % (11.6-16.5); WHITE BLOOD COUNT 5.7 X10^3/uL (3.6-10.0)
[2022-07-23 05:20] LABS: ALANINE AMINOTRANSFERASE 35 Units/L (12-78); ALBUMIN 2.1 g/dL (3.4-5.0); ALKALINE PHOSPHATASE 92 Units/L (46-116); ASPARTATE AMINO TRANSFERASE 67 Units/L (15-37); BLOOD UREA NITROGEN 12 mg/dL (7-18); CALCIUM 7.9 mg/dL (8.5-10.1); CARBON DIOXIDE 28.1 mmol/L (21-32); CHLORIDE 110 mmol/L (98-107); COR CA(FOR HYPOALB) 9.4 mg/dL (8.5-10.1); CREATINE KINASE 64 Units/L (39-308); CREATININE 0.83 mg/dL (0.70-1.30); SODIUM 143 mmol/L (136-145); TOTAL PROTEIN 5.8 g/dL (6.4-8.2); eGFR NON BLACK RACES > 60 (>60)
[2022-07-23] MEDS ORDERED: POTASSIUM CHLORIDE LIQ 20 MEQ UDC PO PRN (05:52)
[2022-07-23] MEDS ORDERED: K-RIDER 10 MEQ/NS 100 ML 10 MEQ/100 ML BAG IV PRN (05:52)
[2022-07-23] MEDS ORDERED: KLOR-CON PO PRN (05:52)
[2022-07-23] MEDS ORDERED: POTASSIUM CHL 60 MEQ/NS 0.45% 500 ML IV PRN (05:52)
[2022-07-23] MEDS ORDERED: MICRO K EXTEN CAP 10 MEQ PO PRN (05:52)
[2022-07-23] MEDS ORDERED: POTASSIUM CHL 40 MEQ/NS 0.45% 500 ML IV PRN (05:52)
[2022-07-23] MEDS: ANCEF VIAL 1 GRAM IVP SCH ×3 (06:05→21:38)
[2022-07-23] MEDS: MAGNESIUM SULFATE 1 GRAM/100 mL PREMIX 1 G/100 ML BAG IV PRN ×2 (06:28→08:11)
[2022-07-23] MEDS: K-DUR TAB 20 MEQ PO PRN (08:11)
[2022-07-23] MEDS: LASIX IVP SCH (08:12)
[2022-07-23] MEDS: NS 1,000 ML IV 1,000 ML IV SCH ×2 (10:09→22:06)
[2022-07-23] MEDS: NORCO 5/325 MG TAB PO PRN ×2 (12:24→21:38)
--- NOTE | 2022-07-23 12:41 | DR.H&P ---
H&P History & Physical for Day of: H&P Date: 07/23/22 Chief Complaint Chief Complaint: left leg pain and redness Allergies Allergies Allergy/AdvReac Type Severity Reaction Status Date / Time No Known Drug Allergies Allergy Verified 12/15/21 18:25 History of Present Illness History of Present Illness: Pt is a 62 year old male presenting with left leg pain and redness since Sunday. He reports that he had a blister on leg that "popped" and discharge has been coming from area. Labs/imaging: Wbc 5.7, Hgb 10.7, Plt 94, Na 143, K 3.6, Creatinine 0.83, Glucose 97, D-dimer 3.16, CTA chest was obtained that was negative for pulmonary embolism and venous ultrasound negative for DVT. Pt was started on antibiotics Cefazolin by the ED. Blood and wound cultures pending. Will consult general surgery for evaluation. Otherwise, continue with current treatment plan. Continue to monitor and follow up labs in the morning. Past Medical History Past Medical History: Diabetes and Hypertension Past Surgical History Surgical History: Ortho Surgery Family History Family Medical History: Diabetes Mellitus Social History Does patient currently use any type of tobacco product: Yes Have you used tobacco products in the last 12 months: Yes Type of Tobacco Use: Cigarettes Does any household member use tobacco: Yes Alcohol Use: None Drug Use: None Medications Home Medications: No Known Drug Allergies Allergy (Verified 12/15/21 18:25) CONTINUE taking the following medications NK 07/22/22 [History] Labs Result Diagrams: 07/23/22 04:20 07/23/22 04:20 Labs: 07/22/22 20:50 Leg - Left Wound Gram Stain - Final 07/22/22 20:50 Leg - Left Wound Culture - Preliminary Laboratory WBC 5.7 X10^3/uL (3.6-10.0) 07/23/22 04:20 RBC 3.19 X10^6/uL (4.7-6.0) L 07/23/22 04:20 Hgb 10.7 g/dL (13.5-18.0) L 07/23/22 04:20 Hct 30.0 % (42.0-54.0) L 07/23/22 04:20 MCV 94.0 fL (80.0-100.0) 07/23/22 04:20 MCH 33.7 pg (27.0-34.0) 07/23/22 04:20 MCHC 35.8 g/dL (33.0-35.0) H 07/23/22 04:20 RDW 14.2 % (11.6-16.5) 07/23/22 04:20 Plt Count 94 X10^3/uL (150.0-450.0) L 07/23/22 04:20 MPV 7.9 fL (7.4-11.0) 07/23/22 04:20 Neut % (Auto) 64.9 % (42.0-75.0) 07/23/22 04:20 Lymph % (Auto) 21.6 % (21.0-51.0) 07/23/22 04:20 [place] % (Auto) 8.7 % (0.0-13.0) 07/23/22 04:20 Eos % (Auto) 4.3 % (0.9-2.9) H 07/23/22 04:20 Baso % (Auto) 0.5 % (0.2-1.0) 07/23/22 04:20 Neut # (Auto) 3.7 x10^3/uL (2.2-4.8) 07/23/22 04:20 Lymph # (Auto) 1.2 X10^3/uL (1.3-2.9) L 07/23/22 04:20 [place] # (Auto) 0.5 x10^3/uL (0.3-0.8) 07/23/22 04:20 Eos # (Auto) 0.2 x10^3/uL (0.0-0.2) 07/23/22 04:20 Baso # (Auto) 0.0 X10^3/uL (0.0-0.1) 07/23/22 04:20 Absolute Nucleated RBC 0.1 /100WBC 07/23/22 04:20 D-Dimer 3.16 ug/ml (0.0-0.57) H 07/22/22 15:08 Sodium 143 mmol/L (136-145) 07/23/22 04:20 Corrected Sodium TNP 07/23/22 04:20 Potassium 3.6 mmol/L (3.5-5.1) 07/23/22 04:20 Chloride 110 mmol/L (98-107) H 07/23/22 04:20 Carbon Dioxide 28.1 mmol/L (21-32) 07/23/22 04:20 BUN 12 mg/dL (7-18) 07/23/22 04:20 Creatinine 0.83 mg/dL (0.70-1.30) 07/23/22 04:20 Est GFR (MDRD) Af Amer > 60 (>60) 07/23/22 04:20 Est GFR (MDRD) Non-Af > 60 (>60) 07/23/22 04:20 Glucose 97 mg/dL (65-99) 07/23/22 04:20 Lactic Acid 1.0 mmol/L (0.4-2.0) 07/22/22 15:08 Calcium 7.9 mg/dL (8.5-10.1) L 07/23/22 04:20 Corrected Calcium 9.4 mg/dL (8.5-10.1) 07/23/22 04:20 Magnesium 1.5 mg/dL (2.0-2.9) L 07/23/22 04:20 Total Bilirubin 1.00 mg/dL (0.2-1.0) 07/23/22 04:20 AST 67 Units/L (15-37) H 07/23/22 04:20 ALT 35 Units/L (12-78) 07/23/22 04:20 Alkaline Phosphatase 92 Units/L (46-116) 07/23/22 04:20 Creatine Kinase 64 Units/L (39-308) 07/23/22 04:20 Troponin I High Sens 15.5 ng/L (4.0-60.0) 07/22/22 23:00 B-Natriuretic Peptide 89.9 pg/mL (0-79) H 07/22/22 15:08 Total Protein 5.8 g/dL (6.4-8.2) L 07/23/22 04:20 Albumin 2.1 g/dL (3.4-5.0) L 07/23/22 04:20 Globulin 3.7 g/dL (2.5-4.5) 07/23/22 04:20 Albumin/Globulin Ratio 0.6 Ratio (1.1-2.1) L 07/23/22 04:20 Review of Systems Constitutional: No Symptoms Reported Eyes: No Symptoms Reported ENT: No Symptoms Reported Respiratory: No Symptoms Reported Cardiovascular: No Symptoms Reported Gastrointestinal: No Symptoms Reported Genitourinary: No Symptoms Reported Musculoskeletal: No Symptoms Reported Skin: Wound (LLE with erythema) Neurological: No Symptoms Reported Physical Exam Vital Signs: Temperature 98.0 F Pulse Rate [Left] 89 Pulse Rate 80 Respiratory Rate 20 Blood Pressure [Left Arm] 161/81 Blood Pressure [Right Arm] 147/72 Blood Pressure 127/59 O2 Sat by Pulse Oximetry 100 Oriented: Normal Eyes: Normal Ear: Normal Nose: Normal Throat: Normal Respiratory: Clear Throughout Cardiovascular: Normal : Normal Auscultation: Bowel Sounds: Normal Palpation: Normal Tenderness: Normal Skin: Red and Wound (LLE) Musculoskeletal: Normal Psychiatric: Normal Mood Description: Calm and Appropriate Affect: Normal Speech Pattern: Clear and Appropriate Assessment/Plan (1) Cellulitis of left lower extremity: Narrative Support Text: Continue antibiotics consult surgery Status: Acute Review H&P Reviewed: Yes Patient was examined?: Yes
[2022-07-23] MEDS: MORPHINE SULFATE INJ 2 MG INJ IVP PRN (13:33)
[2022-07-24] MEDS: ANCEF VIAL 1 GRAM IVP SCH (05:18)
[2022-07-24 05:31] LABS: BASOPHILS % (AUTO) 0.6 % (0.2-1.0); EOSINOPHILS # (AUTO) 0.3 x10^3/uL (0.0-0.2); EOSINOPHILS % (AUTO) 5.8 % (0.9-2.9); HEMOGLOBIN 10.6 g/dL (13.5-18.0); LYMPHOCYTES # (AUTO) 1.2 X10^3/uL (1.3-2.9); LYMPHOCYTES % (AUTO) 22.9 % (21.0-51.0); MEAN CORPUSCULAR HEMOGLOBIN 33.1 pg (27.0-34.0); MEAN CORPUSCULAR HGB CONC 35.4 g/dL (33.0-35.0); MEAN CORPUSCULAR VOLUME 93.6 fL (80.0-100.0); MEAN PLATELET VOLUME 7.5 fL (7.4-11.0); MONOCYTES # (AUTO) 0.5 x10^3/uL (0.3-0.8); MONOCYTES % (AUTO) 9.8 % (0.0-13.0); NEUTROPHILS # (AUTO) 3.2 x10^3/uL (2.2-4.8); NEUTROPHILS % (AUTO) 60.9 % (42.0-75.0); RED CELL DISTRIBUTION WIDTH 14.1 % (11.6-16.5); WHITE BLOOD COUNT 5.3 X10^3/uL (3.6-10.0)
[2022-07-24 05:37] LABS: ALANINE AMINOTRANSFERASE 35 Units/L (12-78); ALKALINE PHOSPHATASE 99 Units/L (46-116); ASPARTATE AMINO TRANSFERASE 66 Units/L (15-37); BLOOD UREA NITROGEN 11 mg/dL (7-18); CALCIUM 7.7 mg/dL (8.5-10.1); CARBON DIOXIDE 30.3 mmol/L (21-32); CHLORIDE 107 mmol/L (98-107); COR CA(FOR HYPOALB) 9.3 mg/dL (8.5-10.1); CREATININE 0.78 mg/dL (0.70-1.30); MAGNESIUM 1.6 mg/dL (2.0-2.9); SODIUM 141 mmol/L (136-145); TOTAL PROTEIN 5.5 g/dL (6.4-8.2); eGFR NON BLACK RACES > 60 (>60)
[2022-07-24] MEDS: MAGNESIUM SULFATE 1 GRAM/100 mL PREMIX 1 G/100 ML BAG IV PRN ×2 (06:09→08:51)
[2022-07-24] MEDS ORDERED: HYDROGEN PEROXIDE 3% ONE (08:39)
[2022-07-24] MEDS: LASIX IVP SCH (08:49)
[2022-07-24] MEDS: K-DUR TAB 20 MEQ PO PRN (08:50)
[2022-07-24] MEDS ORDERED: LOVENOX INJ 40 MG SYR SC SCH (09:00)
[2022-07-24] MEDS: MORPHINE SULFATE INJ 2 MG INJ IVP PRN ×3 (09:06→14:27)
[2022-07-24] MEDS ORDERED: D5W IV SCH (09:11)
[2022-07-24] MEDS ORDERED: BACTRIM IV SCH (09:11)
[2022-07-24] MEDS: RIFADIN PO SCH ×2 (09:42→21:23)
[2022-07-24] MEDS: BACTRIM IV SCH ×2 (10:14→21:23)
[2022-07-24] MEDS: D5W IV SCH ×2 (10:14→21:23)
[2022-07-24] MEDS: NS 1,000 ML IV 1,000 ML IV SCH (12:51)
[2022-07-24] MEDS: BACTROBAN TOPICAL OINT TOP PRN (14:43)
[2022-07-24] MEDS: NORCO 5/325 MG TAB PO PRN (16:56)
[2022-07-25] MEDS: NS 1,000 ML IV 1,000 ML IV SCH ×3 (01:00→20:38)
[2022-07-25 04:50] LABS: BASOPHILS % (AUTO) 0.6 % (0.2-1.0); EOSINOPHILS # (AUTO) 0.3 x10^3/uL (0.0-0.2); EOSINOPHILS % (AUTO) 5.5 % (0.9-2.9); HEMATOCRIT 30.1 % (42.0-54.0); HEMOGLOBIN 10.6 g/dL (13.5-18.0); LYMPHOCYTES % (AUTO) 21.6 % (21.0-51.0); MEAN CORPUSCULAR HEMOGLOBIN 33.2 pg (27.0-34.0); MEAN CORPUSCULAR HGB CONC 35.4 g/dL (33.0-35.0); MEAN CORPUSCULAR VOLUME 93.9 fL (80.0-100.0); MEAN PLATELET VOLUME 7.3 fL (7.4-11.0); MONOCYTES # (AUTO) 0.5 x10^3/uL (0.3-0.8); NEUTROPHILS # (AUTO) 2.8 x10^3/uL (2.2-4.8); NEUTROPHILS % (AUTO) 60.3 % (42.0-75.0); WHITE BLOOD COUNT 4.6 X10^3/uL (3.6-10.0)
[2022-07-25 05:04] LABS: ALANINE AMINOTRANSFERASE 32 Units/L (12-78); ALKALINE PHOSPHATASE 105 Units/L (46-116); ASPARTATE AMINO TRANSFERASE 67 Units/L (15-37); BLOOD UREA NITROGEN 10 mg/dL (7-18); CALCIUM 7.5 mg/dL (8.5-10.1); CARBON DIOXIDE 29.6 mmol/L (21-32); CHLORIDE 106 mmol/L (98-107); COR CA(FOR HYPOALB) 9.1 mg/dL (8.5-10.1); MAGNESIUM 1.6 mg/dL (2.0-2.9); SODIUM 141 mmol/L (136-145); TOTAL PROTEIN 5.5 g/dL (6.4-8.2); eGFR NON BLACK RACES > 60 (>60)
[2022-07-25] MEDS: MAGNESIUM SULFATE 1 GRAM/100 mL PREMIX 1 G/100 ML BAG IV PRN ×2 (05:30→08:46)
[2022-07-25] MEDS: LASIX IVP SCH (08:46)
[2022-07-25] MEDS: RIFADIN PO SCH ×2 (08:46→20:38)
[2022-07-25] MEDS: MORPHINE SULFATE INJ 2 MG INJ IVP PRN ×3 (08:47→20:47)
[2022-07-25] MEDS: BACTRIM IV SCH ×2 (09:00→20:37)
[2022-07-25] MEDS: D5W IV SCH ×2 (09:00→20:37)
[2022-07-25] MEDS: BACTROBAN TOPICAL OINT TOP PRN (10:30)
--- NOTE | 2022-07-25 17:04 | DR.PROGNOT ---
HOSPITAL PROGRESS NOTE Progress Note for Day of: Progress Note Date: 07/25/22 Chief Complaint Chief Complaint: slow improvement of Lt leg ulcer . C&S showed Staph infction sensitive to all Past Medical Family Social History Past Med/Fam/Surg Hx: No changes since H&P Allergies: Allergies No Known Drug Allergies Allergy (Verified 12/15/21 18:25) Review Of Systems ROS: No change since H&P Vital Signs Vital Signs: Temperature 98.6 F Pulse Rate [Left] 89 Pulse Rate 91 Respiratory Rate 14 Blood Pressure [Left Arm] 161/81 Blood Pressure [Right Arm] 147/72 Blood Pressure 133/61 O2 Sat by Pulse Oximetry 99 Physical Exam Oriented: Normal Eyes: Normal Ear: Normal Nose: Normal Throat: Normal Cardiovascular: Normal : Normal GI:Auscultation: Normal GI:Palpation: Normal GI: Tenderness: Normal Skin: Red and Wound (2 x 2 cm granulating wound Lt leg ) Musculoskeletal: Normal Psychiatric: Normal Mood Description: Calm and Appropriate Affect: Normal Speech Pattern: Clear and Appropriate Laboratory and Diagnostics Result Diagrams: 07/25/22 04:35 07/25/22 04:35 Labs: 07/22/22 20:50 Leg - Left Wound Gram Stain - Final 07/22/22 20:50 Leg - Left Wound Culture - Final Staphylococcus Aureus 07/22/22 15:25 Blood Blood Culture - Preliminary 07/22/22 15:08 Blood Blood Culture - Preliminary Laboratory WBC 4.6 X10^3/uL (3.6-10.0) 07/25/22 04:35 RBC 3.20 X10^6/uL (4.7-6.0) L 07/25/22 04:35 Hgb 10.6 g/dL (13.5-18.0) L 07/25/22 04:35 Hct 30.1 % (42.0-54.0) L 07/25/22 04:35 MCV 93.9 fL (80.0-100.0) 07/25/22 04:35 MCH 33.2 pg (27.0-34.0) 07/25/22 04:35 MCHC 35.4 g/dL (33.0-35.0) H 07/25/22 04:35 RDW 14.0 % (11.6-16.5) 07/25/22 04:35 Plt Count 87 X10^3/uL (150.0-450.0) L 07/25/22 04:35 MPV 7.3 fL (7.4-11.0) L 07/25/22 04:35 Neut % (Auto) 60.3 % (42.0-75.0) 07/25/22 04:35 Lymph % (Auto) 21.6 % (21.0-51.0) 07/25/22 04:35 [place] % (Auto) 12.0 % (0.0-13.0) 07/25/22 04:35 Eos % (Auto) 5.5 % (0.9-2.9) H 07/25/22 04:35 Baso % (Auto) 0.6 % (0.2-1.0) 07/25/22 04:35 Neut # (Auto) 2.8 x10^3/uL (2.2-4.8) 07/25/22 04:35 Lymph # (Auto) 1.0 X10^3/uL (1.3-2.9) L 07/25/22 04:35 [place] # (Auto) 0.5 x10^3/uL (0.3-0.8) 07/25/22 04:35 Eos # (Auto) 0.3 x10^3/uL (0.0-0.2) H 07/25/22 04:35 Baso # (Auto) 0.0 X10^3/uL (0.0-0.1) 07/25/22 04:35 Absolute Nucleated RBC 0.0 /100WBC 07/25/22 04:35 D-Dimer 3.16 ug/ml (0.0-0.57) H 07/22/22 15:08 Sodium 141 mmol/L (136-145) 07/25/22 04:35 Corrected Sodium TNP 07/25/22 04:35 Potassium 3.8 mmol/L (3.5-5.1) 07/25/22 04:35 Chloride 106 mmol/L (98-107) 07/25/22 04:35 Carbon Dioxide 29.6 mmol/L (21-32) 07/25/22 04:35 BUN 10 mg/dL (7-18) 07/25/22 04:35 Creatinine 0.90 mg/dL (0.70-1.30) 07/25/22 04:35 Est GFR (MDRD) Af Amer > 60 (>60) 07/25/22 04:35 Est GFR (MDRD) Non-Af > 60 (>60) 07/25/22 04:35 Glucose 103 mg/dL (65-99) H 07/25/22 04:35 Lactic Acid 1.0 mmol/L (0.4-2.0) 07/22/22 15:08 Calcium 7.5 mg/dL (8.5-10.1) L 07/25/22 04:35 Corrected Calcium 9.1 mg/dL (8.5-10.1) 07/25/22 04:35 Magnesium 1.6 mg/dL (2.0-2.9) L 07/25/22 04:35 Total Bilirubin 1.40 mg/dL (0.2-1.0) H 07/25/22 04:35 AST 67 Units/L (15-37) H 07/25/22 04:35 ALT 32 Units/L (12-78) 07/25/22 04:35 Alkaline Phosphatase 105 Units/L (46-116) 07/25/22 04:35 Creatine Kinase 64 Units/L (39-308) 07/23/22 04:20 Troponin I High Sens 15.5 ng/L (4.0-60.0) 07/22/22 23:00 B-Natriuretic Peptide 89.9 pg/mL (0-79) H 07/22/22 15:08 Total Protein 5.5 g/dL (6.4-8.2) L 07/25/22 04:35 Albumin 2.0 g/dL (3.4-5.0) L 07/25/22 04:35 Globulin 3.5 g/dL (2.5-4.5) 07/25/22 04:35 Albumin/Globulin Ratio 0.6 Ratio (1.1-2.1) L 07/25/22 04:35 Assessment and Plan 1: infected ulcer Lt leg with slow improvement . if no healing in a week or so then needs Bx to R/O malignancy
[2022-07-26] MEDS: NS 1,000 ML IV 1,000 ML IV SCH (03:00)
[2022-07-26 05:12] LABS: BASOPHILS # (AUTO) 0.1 X10^3/uL (0.0-0.1); BASOPHILS % (AUTO) 2.6 % (0.2-1.0); EOSINOPHILS # (AUTO) 0.3 x10^3/uL (0.0-0.2); HEMATOCRIT 31.4 % (42.0-54.0); HEMOGLOBIN 11.1 g/dL (13.5-18.0); LYMPHOCYTES # (AUTO) 0.8 X10^3/uL (1.3-2.9); LYMPHOCYTES % (AUTO) 15.3 % (21.0-51.0); MEAN CORPUSCULAR HEMOGLOBIN 33.3 pg (27.0-34.0); MEAN CORPUSCULAR HGB CONC 35.4 g/dL (33.0-35.0); MEAN CORPUSCULAR VOLUME 94.2 fL (80.0-100.0); MEAN PLATELET VOLUME 7.9 fL (7.4-11.0); MONOCYTES # (AUTO) 0.5 x10^3/uL (0.3-0.8); MONOCYTES % (AUTO) 10.1 % (0.0-13.0); NEUTROPHILS # (AUTO) 3.2 x10^3/uL (2.2-4.8); RED BLOOD COUNT 3.33 X10^6/uL (4.7-6.0); WHITE BLOOD COUNT 4.9 X10^3/uL (3.6-10.0)
[2022-07-26 05:36] LABS: ALANINE AMINOTRANSFERASE 32 Units/L (12-78); ALBUMIN 1.9 g/dL (3.4-5.0); ALKALINE PHOSPHATASE 97 Units/L (46-116); ASPARTATE AMINO TRANSFERASE 74 Units/L (15-37); BLOOD UREA NITROGEN 11 mg/dL (7-18); CALCIUM 7.6 mg/dL (8.5-10.1); CARBON DIOXIDE 26.9 mmol/L (21-32); CHLORIDE 106 mmol/L (98-107); COR CA(FOR HYPOALB) 9.3 mg/dL (8.5-10.1); CREATININE 0.94 mg/dL (0.70-1.30); MAGNESIUM 1.6 mg/dL (2.0-2.9); SODIUM 139 mmol/L (136-145); TOTAL PROTEIN 5.6 g/dL (6.4-8.2); eGFR NON BLACK RACES > 60 (>60)
[2022-07-26] MEDS: MAGNESIUM SULFATE 1 GRAM/100 mL PREMIX 1 G/100 ML BAG IV PRN ×2 (06:11→08:18)
[2022-07-26] MEDS: MORPHINE SULFATE INJ 2 MG INJ IVP PRN (06:14)
[2022-07-26] MEDS: LASIX IVP SCH (08:18)
[2022-07-26 09:33] VITALS: BP 105/52
[2022-07-26] MEDS: BACTRIM IV SCH (09:50)
[2022-07-26] MEDS: D5W IV SCH (09:50)
[2022-07-26] MEDS: RIFADIN PO SCH (09:56)
== END 2022-07-26 11:05 | disposition home or self-care (01) ==
LOC: ICU 14:31 → ER 14:31 → ICU 20:23
PROVIDERS: ADMIT Obstetrics & Gynecology Obstetrics; ATTEND Obstetrics & Gynecology Obstetrics
DX: E11.65 Type 2 diabetes mellitus with hyperglycemia; I11.0 Hypertensive heart disease with heart failure; L03.116 Cellulitis of left lower limb; I87.8 Other specified disorders of veins; R60.0 Localized edema; R79.1 Abnormal coagulation profile; B95.62 Methicillin resistant Staphylococcus aureus infection as the cause of diseases classified elsewhere; I87.2 Venous insufficiency (chronic) (peripheral); I50.9 Heart failure, unspecified

== ENCOUNTER 2022-12-13 12:01 | Inpatient (IN) ==
[2022-12-13 12:17] VITALS: BMI 36.9
--- NOTE | 2022-12-13 12:46 | DR.GENAD ---
HPI Time Seen Time Seen by Provider: 12/13/22 12:46 PCP Primary Care Physician: none Complaint/Symptoms Chief Complaint Doctors Comments: 62 y/o male presents with worsening of his chronic lower ext swelling, now having swelling of his scrotum past few days. + feels short of breath with ambulation. Has a chronif LLE wound, oozing at times. No fever, chills, cough, chest pain, bowel or bladder issues. Pt off his diuretics for awhile. Reportedly dismissed form Dr Simon's practice, unable to pay. Pt last seen here 4 months ago by me, meds refilled then. Chief Complaint:: Pt. states he's swelling really bad in his legs, groin and abdomen. The swelling is causing SOB and making it hard to walk. Bilateral lower extremities are pink, warm to the touch and very tight. Pt. reports multiple non-healing sores on his legs, the worst wound is on the lateral aspect of his left lower leg, noted to be covered with a dressing at this time He states that the wound is a hole that you can stick you thumb in. Pt. also complains of a tender lump in bilateral chest/breast. Pt. also complains that he is itching all over. Pt. reports chills and possibly fever at night. Nurses notes reviewed Nurses Notes Review: Yes Source History Provided: Patient Mode of Arrival Mode of Arrival: Ambulatory Timing Onset of Chief Complaint: 12/06/22 PMH PMH Past Medical History: Yes Past Medical History: CHF, Diabetes and Hypertension Past Medical History Comment: Hepatitis C Past Surgical History: Yes Surgical History: Abdominal Surgery and Ortho Surgery Family History History of Family Medical Conditions: Yes Family Medical History: Diabetes Mellitus Social History Does patient currently use any type of tobacco product: Yes Have you used tobacco products in the last 12 months: Yes Type of Tobacco Use: Cigarettes How many years tobacco product used: 40 Does any household member use tobacco: No Alcohol Use: None Do you use any recreational Drugs:: No Lives With: Friend Lives Where: Home Infectious screening In the last 2 months have you had wt loss of >10#?: NO Have you had fever, night sweats or hemotysis?: No Have you traveled outside the country in the last 6 months?: No Isolation: Standard ROS Review of Systems Constitutional: Weakness Eyes: No Symptoms Reported ENTM: No Symptoms Reported Respiratoy: Short of Breath Cardiovascular: Edema Gastrointestinal/Abdominal: No Symptoms Reported Genitourinary: No Symptoms Reported Neurological: Weakness Musculoskeletal: No Symptoms Reported Integumentary: No Symptoms Reported Hematologic/Lymphatic: No Symptoms Reported All Other Systems: Reviewed and Negative PE Vital Signs Vitals: Vital Signs Pulse Rate 89 Pulse Rate 80 Pulse Rate 81 Pulse Rate 78 Pulse Rate 79 Pulse Rate 87 Pulse Rate 88 Pulse Rate 86 Pulse Rate 79 Pulse Rate 74 Pulse Rate 79 Pulse Rate 81 Pulse Rate 93 Respiratory Rate 22 Blood Pressure 119/58 Blood Pressure 136/60 Blood Pressure 149/74 Blood Pressure 136/64 Blood Pressure 153/82 Blood Pressure 142/79 O2 Sat by Pulse Oximetry 99 O2 Sat by Pulse Oximetry 100 O2 Sat by Pulse Oximetry 100 O2 Sat by Pulse Oximetry 100 O2 Sat by Pulse Oximetry 100 O2 Sat by Pulse Oximetry 99 O2 Sat by Pulse Oximetry 99 O2 Sat by Pulse Oximetry 98 O2 Sat by Pulse Oximetry 99 O2 Sat by Pulse Oximetry 100 O2 Sat by Pulse Oximetry 99 O2 Sat by Pulse Oximetry 100 O2 Sat by Pulse Oximetry 97 General General Appearance: Alert and In No Apparent Distress Eyes Eye exam: PERRL and EOMI ENT ENT Exam: Mucous Membranes Moist Neck Neck Exam: Normal Inspection Respiratory Respiratory Exam: Normal Lung Sounds Bilat; negative Accessory Muscle Use or R espiratory Distress Cardiovascular Cardiovascular Exam: Regular Rate, Normal Rhythm and Normal Heart Sounds Abdominal Exam Abdominal Exam: Normal Bowel Sounds and Soft; negative Tenderness Extremities Extremities Exam: Edema (4+, bilateral lower exts, brawny induration. + swelling of scotum, + pitting edema of lower abdominal wall. ) Neurologic Neurological Exam: Alert, Oriented X3 and CN II-XII Intact; negative Motor Sensory Deficit Skin Skin Exam: Warm and Dry Other Exam Other Exam: LLE - has 1 cm healing wound, swllow indentation. No evidence for infection. COURSE Treatment Treatment: 62 y/o male with worsening edema. W/u initiated. Given IV lasix. 1530 - labs overall acceptable. Pt with degree of anasarca, has edema involving the lowe rabdominal wall. Recommend admission for further diuresis, getting pt back on meds. Discussed with Dr Rahman (pt no longer a pt of Dr Simon), accepts the admission. ROR Labs Reviewed Laboratory Results Reviewed?: Yes Result Diagrams: 12/13/22 12:58 12/13/22 12:58 Laboratory: WBC 7.9 X10^3/uL (3.6-10.0) 12/13/22 12:58 RBC 3.27 X10^6/uL (4.7-6.0) L 12/13/22 12:58 Hgb 10.8 g/dL (13.5-18.0) L 12/13/22 12:58 Hct 31.2 % (42.0-54.0) L 12/13/22 12:58 MCV 95.5 fL (80.0-100.0) 12/13/22 12:58 MCH 33.0 pg (27.0-34.0) 12/13/22 12:58 MCHC 34.5 g/dL (33.0-35.0) 12/13/22 12:58 RDW 14.7 % (11.6-16.5) 12/13/22 12:58 Plt Count 101 X10^3/uL (150.0-450.0) L 12/13/22 12:58 MPV 7.9 fL (7.4-11.0) 12/13/22 12:58 Neut % (Auto) 74.5 % (42.0-75.0) 12/13/22 12:58 Lymph % (Auto) 11.6 % (21.0-51.0) L 12/13/22 12:58 [place] % (Auto) 7.4 % (0.0-13.0) 12/13/22 12:58 Eos % (Auto) 6.5 % (0.9-2.9) H 12/13/22 12:58 Baso % (Auto) 0 % (0.2-1.0) L 12/13/22 12:58 Neut # (Auto) 5.9 x10^3/uL (2.2-4.8) H 12/13/22 12:58 Lymph # (Auto) 0.9 X10^3/uL (1.3-2.9) L 12/13/22 12:58 [place] # (Auto) 0.6 x10^3/uL (0.3-0.8) 12/13/22 12:58 Eos # (Auto) 0.5 x10^3/uL (0.0-0.2) H 12/13/22 12:58 Baso # (Auto) 0.0 X10^3/uL (0.0-0.1) 12/13/22 12:58 Absolute Nucleated RBC 0.0 /100WBC 12/13/22 12:58 Sodium 142 mmol/L (136-145) 12/13/22 12:58 Corrected Sodium 143 mmol/L (136-145) 12/13/22 12:58 Potassium 3.5 mmol/L (3.5-5.1) 12/13/22 12:58 Chloride 109 mmol/L (98-107) H 12/13/22 12:58 Carbon Dioxide 25.8 mmol/L (21-32) 12/13/22 12:58 BUN 9 mg/dL (7-18) 12/13/22 12:58 Creatinine 1.57 mg/dL (0.70-1.30) H 12/13/22 12:58 Est GFR (MDRD) Af Amer 58 (>60) L 12/13/22 12:58 Est GFR (MDRD) Non-Af 48 (>60) L 12/13/22 12:58 Glucose 162 mg/dL (65-99) H 12/13/22 12:58 Calcium 7.1 mg/dL (8.5-10.1) L 12/13/22 12:58 Corrected Calcium 8.9 mg/dL (8.5-10.1) 12/13/22 12:58 Total Bilirubin 1.00 mg/dL (0.2-1.0) 12/13/22 12:58 AST 77 Units/L (15-37) H 12/13/22 12:58 ALT 34 Units/L (12-78) 12/13/22 12:58 Alkaline Phosphatase 109 Units/L (46-116) 12/13/22 12:58 B-Natriuretic Peptide 131 pg/mL (0-79) H 12/13/22 12:58 Total Protein 6.1 g/dL (6.4-8.2) L 12/13/22 12:58 Albumin 1.8 g/dL (3.4-5.0) L 12/13/22 12:58 Globulin 4.3 g/dL (2.5-4.5) 12/13/22 12:58 Albumin/Globulin Ratio 0.4 Ratio (1.1-2.1) L 12/13/22 12:58 Lipase 57 Units/L (73-393) L 12/13/22 12:58 Specimen Type Clean catch urine 12/13/22 13:57 Urine Color Straw (YELLOW) 12/13/22 13:57 Urine Appearance Clear (CLEAR) 12/13/22 13:57 Urine pH 6.0 (5.0 - 8.0) 12/13/22 13:57 Ur Specific [place] 1.015 (1.000-1.030) 12/13/22 13:57 Urine Protein Negative (NEGATIVE) 12/13/22 13:57 Urine Glucose (UA) Negative (NEGATIVE) 12/13/22 13:57 Urine Ketones Negative (NEGATIVE) 12/13/22 13:57 Urine Blood Negative (NEGATIVE) 12/13/22 13:57 Urine Nitrite Negative (NEGATIVE) 12/13/22 13:57 Urine Bilirubin Negative (NEGATIVE) 12/13/22 13:57 Urine Urobilinogen Normal (NORMAL) 12/13/22 13:57 Ur Leukocyte Esterase Negative (NEGATIVE) 12/13/22 13:57 Labs overall acceptable, EGFR 48. XRAY XRAY Interpreted by: Self X-ray Results: poor inspiration, mild cardiomegaly. Opioid Opioid Risk Tool Age (Topher box if 16-45): No History of Preadolescent Sexual Abuse: No Total: 0 Total Score Risk Category: Low Risk Copyright: Desmond BOWLING predicting aberrant behaviors Discharge Plan Diagnosis Discharge Problem: Anasarca Discharge Plan Patient Disposition: 09 ADMITTED INPATIENT Condition: Stable Prescriptions: No Action [facility] Concerns: Post Hospitalization: new medications and changes needed to prevent readmission or further decline. Pt educated and given instructions on all concerns. Plan of Treatment: Continue with present treatment and follow up plan. Pt is to keep follow up appointment as instructed and take medications as ordered. Orders to Discharge Patient Discharge Orders: Transfer (Routine); Ordered 12/13/22 Ordered By: Kolton Chappell Follow ups/Referrals Follow ups/Referrals: YONNY SIMON [Primary Care Provider] - 3 days
[2022-12-13 13:06] LABS: BASOPHILS % (AUTO) 0 % (0.2-1.0); EOSINOPHILS # (AUTO) 0.5 x10^3/uL (0.0-0.2); EOSINOPHILS % (AUTO) 6.5 % (0.9-2.9); HEMATOCRIT 31.2 % (42.0-54.0); HEMOGLOBIN 10.8 g/dL (13.5-18.0); LYMPHOCYTES # (AUTO) 0.9 X10^3/uL (1.3-2.9); LYMPHOCYTES % (AUTO) 11.6 % (21.0-51.0); MEAN CORPUSCULAR HGB CONC 34.5 g/dL (33.0-35.0); MEAN CORPUSCULAR VOLUME 95.5 fL (80.0-100.0); MEAN PLATELET VOLUME 7.9 fL (7.4-11.0); MONOCYTES # (AUTO) 0.6 x10^3/uL (0.3-0.8); MONOCYTES % (AUTO) 7.4 % (0.0-13.0); NEUTROPHILS # (AUTO) 5.9 x10^3/uL (2.2-4.8); NEUTROPHILS % (AUTO) 74.5 % (42.0-75.0); PLATELET COUNT 101 X10^3/uL (150.0-450.0); RED BLOOD COUNT 3.27 X10^6/uL (4.7-6.0); RED CELL DISTRIBUTION WIDTH 14.7 % (11.6-16.5); WHITE BLOOD COUNT 7.9 X10^3/uL (3.6-10.0)
[2022-12-13 13:17] LABS: ALBUMIN 1.8 g/dL (3.4-5.0); CALCIUM 7.1 mg/dL (8.5-10.1); CARBON DIOXIDE 25.8 mmol/L (21-32); COR CA(FOR HYPOALB) 8.9 mg/dL (8.5-10.1); CREATININE 1.57 mg/dL (0.70-1.30); POTASSIUM 3.5 mmol/L (3.5-5.1); TOTAL PROTEIN 6.1 g/dL (6.4-8.2)
[2022-12-13] MEDS ORDERED: LASIX IVP ONE ×2 (13:31→13:33)
[2022-12-13 14:04] LABS: BILIRUBIN,URINE NEGATIVE (NEGATIVE); BLOOD/HEMOGLOBIN,URINE NEGATIVE (NEGATIVE); GLUCOSE, URINE NEGATIVE (NEGATIVE); KETONES,URINE NEGATIVE (NEGATIVE); LEUKOCYTE ESTERASE ,URINE NEGATIVE (NEGATIVE); NITRITES,URINE NEGATIVE (NEGATIVE); PROTEIN,URINE NEGATIVE (NEGATIVE); UROBILINOGEN,URINE NORMAL (NORMAL)
[2022-12-13 14:07] LABS: APPEARANCE,URINE CLEAR (CLEAR); COLOR,URINE STRAW (YELLOW)
[2022-12-13] MEDS ORDERED: BENADRYL INJ 50 MG VIAL IVP ONE (14:53)
[2022-12-13] MEDS ORDERED: BENADRYL INJ 50 MG VIAL ONE (14:55)
[2022-12-13] MEDS ORDERED: CONSULT PHARMACY - POTASSIUM & MAGNESIUM XX SCH ×2 (16:00→19:00)
[2022-12-13] MEDS ORDERED: LASIX IVP SCH (17:00)
[2022-12-13] MEDS: K-RIDER 10 MEQ/NS 100 ML 10 MEQ/100 ML BAG IV SCH ×2 (21:08→22:34)
[2022-12-13] MEDS: ELIMITE TOPICAL CREAM TOP SCH (21:09)
--- NOTE | 2022-12-13 21:13 | RAD ---
HISTORYswollen, fluid buildup in legsSTUDYCHEST, 1 VIEWCOMPARISONFrontal chest radiograph September 16, 2022FINDINGSThe heart is enlarged. The trachea is midline. There is pulmonary vascular prominence. Interseptal thickening.IMPRESSIONChronic congestive changesElectronically signed by: Paul Schulte (Dec 13, 2022 21:11:34)
[2022-12-13] MEDS ORDERED: NS 500 ML IV 500 ML IV ONE (21:24)
[2022-12-14 06:40] LABS: BASOPHILS % (AUTO) 0.4 % (0.2-1.0); EOSINOPHILS # (AUTO) 0.4 x10^3/uL (0.0-0.2); EOSINOPHILS % (AUTO) 4.8 % (0.9-2.9); HEMATOCRIT 28.6 % (42.0-54.0); HEMOGLOBIN 9.9 g/dL (13.5-18.0); LYMPHOCYTES # (AUTO) 1.1 X10^3/uL (1.3-2.9); LYMPHOCYTES % (AUTO) 14.4 % (21.0-51.0); MEAN CORPUSCULAR HEMOGLOBIN 32.9 pg (27.0-34.0); MEAN CORPUSCULAR HGB CONC 34.6 g/dL (33.0-35.0); MEAN CORPUSCULAR VOLUME 95.3 fL (80.0-100.0); MEAN PLATELET VOLUME 8.1 fL (7.4-11.0); MONOCYTES # (AUTO) 0.6 x10^3/uL (0.3-0.8); MONOCYTES % (AUTO) 8.1 % (0.0-13.0); NEUTROPHILS # (AUTO) 5.5 x10^3/uL (2.2-4.8); NEUTROPHILS % (AUTO) 72.3 % (42.0-75.0); PLATELET COUNT 80 X10^3/uL (150.0-450.0); RED CELL DISTRIBUTION WIDTH 14.3 % (11.6-16.5); WHITE BLOOD COUNT 7.6 X10^3/uL (3.6-10.0)
[2022-12-14 07:03] LABS: ALANINE AMINOTRANSFERASE 28 Units/L (12-78); ALBUMIN 1.6 g/dL (3.4-5.0); ALKALINE PHOSPHATASE 85 Units/L (46-116); ASPARTATE AMINO TRANSFERASE 68 Units/L (15-37); BLOOD UREA NITROGEN 10 mg/dL (7-18); CALCIUM 6.8 mg/dL (8.5-10.1); CARBON DIOXIDE 27.7 mmol/L (21-32); CHLORIDE 109 mmol/L (98-107); COR CA(FOR HYPOALB) 8.7 mg/dL (8.5-10.1); CREATININE 1.63 mg/dL (0.70-1.30); GLUCOSE 93 mg/dL (65-99); POTASSIUM 3.3 mmol/L (3.5-5.1); SODIUM 142 mmol/L (136-145); TOTAL PROTEIN 5.5 g/dL (6.4-8.2); eGFR NON BLACK RACES 46 (>60)
[2022-12-14] MEDS ORDERED: CONSULT PHARMACY - POTASSIUM & MAGNESIUM XX SCH (08:00)
[2022-12-14] MEDS ORDERED: LASIX IVP ONE (09:00)
[2022-12-14] MEDS: ELIMITE TOPICAL CREAM TOP SCH (09:00)
[2022-12-14] MEDS: ROCEPHIN VIAL 1 GRAM 1 G in NS 100 ML IV 100 ML IV SCH ×2 (10:23→10:24)
[2022-12-14] MEDS: K-DUR TAB 20 MEQ PO SCH ×2 (10:24→12:23)
[2022-12-14] MEDS: MAG-OX TAB PO SCH (10:25)
--- NOTE | 2022-12-14 13:14 | US ---
HISTORYNone to 12 o'clock right breast thickeningEXAMBREASTCOMPARISON CT chest performed July 22, 2022TECHNIQUEMultiple espinoza scale and color flow images of the right breast were obtained.FINDINGSSonographic evaluation of the upper outer quadrant right breast was performed. There is heterogeneous background echotexture with diffuse edematous change and skin thickening which is nonspecific and could be seen in the setting of body wall edema or mastitis/cellulitis. There are no focal fluid collections to suggest abscess. No cystic or solid mass is identified. There is no pathologic lymphadenopathy.IMPRESSIONNonspecific edema and/or inflammation in the region of interest without abscess or suspicious solid mass or lymphadenopathy. Clinical correlation and follow-up recommended.Electronically signed by: TONYA ROJAS (Dec 14, 2022 13:12:51)
--- NOTE | 2022-12-14 15:49 | DR.H&P ---
H&P History & Physical for Day of: H&P Date: 12/13/22 Chief Complaint Chief Complaint: Swelling lower legs Itching Allergies Allergies Allergy/AdvReac Type Severity Reaction Status Date / Time No Known Drug Allergies Allergy Verified 12/15/21 18:25 History of Present Illness History of Present Illness: Pt is a 62 year old male presenting with anasarca of the lower extremities. He reports also having itching all over body and rash in those areas. He has history of edema in lower legs and is currently not following with any pcp or taking any medications. Labs: Wbc 7.9, Hgb 10.8, Plt 101, Na 142, K 3.5, Creatinine 1.57, Glucose 162, Total bilirubin 1.0, AST 77, ALT 34, BNP 131, UA negative, Venous duplex negative few months ago, Echo (2022): EF 52%. Pt received IV lasix 40mg in ED, will continue daily. On physical exam, rash appears to be related to scabies. Order permethrin cream. Replete electrolytes per protocol. Will continue to closely monitor and follow up labs in the morning. Past Medical History Past Medical History: CHF, Diabetes and Hypertension Past Surgical History Surgical History: Abdominal Surgery Family History Family Medical History: Diabetes Mellitus Social History Does patient currently use any type of tobacco product: No Have you used tobacco products in the last 12 months: Yes Type of Tobacco Use: Cigarettes How many years tobacco product used: 40 Does any household member use tobacco: No Alcohol Use: None Medications Home Medications: Home Medications Medication Instructions Recorded Confirmed Type NK 12/13/22 12/13/22 History Labs Result Diagrams: 12/14/22 05:16 12/14/22 05:16 Labs: Laboratory WBC 7.6 X10^3/uL (3.6-10.0) 12/14/22 05:16 RBC 3.00 X10^6/uL (4.7-6.0) L 12/14/22 05:16 Hgb 9.9 g/dL (13.5-18.0) L 12/14/22 05:16 Hct 28.6 % (42.0-54.0) L 12/14/22 05:16 MCV 95.3 fL (80.0-100.0) 12/14/22 05:16 MCH 32.9 pg (27.0-34.0) 12/14/22 05:16 MCHC 34.6 g/dL (33.0-35.0) 12/14/22 05:16 RDW 14.3 % (11.6-16.5) 12/14/22 05:16 Plt Count 80 X10^3/uL (150.0-450.0) L 12/14/22 05:16 MPV 8.1 fL (7.4-11.0) 12/14/22 05:16 Neut % (Auto) 72.3 % (42.0-75.0) 12/14/22 05:16 Lymph % (Auto) 14.4 % (21.0-51.0) L 12/14/22 05:16 [place] % (Auto) 8.1 % (0.0-13.0) 12/14/22 05:16 Eos % (Auto) 4.8 % (0.9-2.9) H 12/14/22 05:16 Baso % (Auto) 0.4 % (0.2-1.0) 12/14/22 05:16 Neut # (Auto) 5.5 x10^3/uL (2.2-4.8) H 12/14/22 05:16 Lymph # (Auto) 1.1 X10^3/uL (1.3-2.9) L 12/14/22 05:16 [place] # (Auto) 0.6 x10^3/uL (0.3-0.8) 12/14/22 05:16 Eos # (Auto) 0.4 x10^3/uL (0.0-0.2) H 12/14/22 05:16 Baso # (Auto) 0.0 X10^3/uL (0.0-0.1) 12/14/22 05:16 Absolute Nucleated RBC 0.1 /100WBC 12/14/22 05:16 Sodium 142 mmol/L (136-145) 12/14/22 05:16 Corrected Sodium TNP 12/14/22 05:16 Potassium 3.3 mmol/L (3.5-5.1) L 12/14/22 05:16 Chloride 109 mmol/L (98-107) H 12/14/22 05:16 Carbon Dioxide 27.7 mmol/L (21-32) 12/14/22 05:16 BUN 10 mg/dL (7-18) 12/14/22 05:16 Creatinine 1.63 mg/dL (0.70-1.30) H 12/14/22 05:16 Est GFR (MDRD) Af Amer 56 (>60) L 12/14/22 05:16 Est GFR (MDRD) Non-Af 46 (>60) L 12/14/22 05:16 Glucose 93 mg/dL (65-99) 12/14/22 05:16 POC Glucose (mg/dL) 118 mg/dL (65-99) H 12/14/22 10:57 Calcium 6.8 mg/dL (8.5-10.1) L 12/14/22 05:16 Corrected Calcium 8.7 mg/dL (8.5-10.1) 12/14/22 05:16 Magnesium 1.6 mg/dL (2.0-2.9) L 12/14/22 05:16 Total Bilirubin 1.10 mg/dL (0.2-1.0) H 12/14/22 05:16 AST 68 Units/L (15-37) H 12/14/22 05:16 ALT 28 Units/L (12-78) 12/14/22 05:16 Alkaline Phosphatase 85 Units/L (46-116) 12/14/22 05:16 B-Natriuretic Peptide 131 pg/mL (0-79) H 12/13/22 12:58 Total Protein 5.5 g/dL (6.4-8.2) L 12/14/22 05:16 Albumin 1.6 g/dL (3.4-5.0) L 12/14/22 05:16 Globulin 3.9 g/dL (2.5-4.5) 12/14/22 05:16 Albumin/Globulin Ratio 0.4 Ratio (1.1-2.1) L 12/14/22 05:16 Lipase 57 Units/L (73-393) L 12/13/22 12:58 Specimen Type Random urine 12/13/22 13:57 Urine Color Straw (YELLOW) 12/13/22 13:57 Urine Appearance Clear (CLEAR) 12/13/22 13:57 Urine pH 6.0 (5.0 - 8.0) 12/13/22 13:57 Ur Specific [place] 1.015 (1.000-1.030) 12/13/22 13:57 Urine Protein Negative (NEGATIVE) 12/13/22 13:57 Urine Glucose (UA) Negative (NEGATIVE) 12/13/22 13:57 Urine Ketones Negative (NEGATIVE) 12/13/22 13:57 Urine Blood Negative (NEGATIVE) 12/13/22 13:57 Urine Nitrite Negative (NEGATIVE) 12/13/22 13:57 Urine Bilirubin Negative (NEGATIVE) 12/13/22 13:57 Urine Urobilinogen Normal (NORMAL) 12/13/22 13:57 Ur Leukocyte Esterase Negative (NEGATIVE) 12/13/22 13:57 Review of Systems Constitutional: No Symptoms Reported Eyes: No Symptoms Reported ENT: No Symptoms Reported Respiratory: No Symptoms Reported Cardiovascular: Edema (3+ bilateral lower extremities) Gastrointestinal: No Symptoms Reported Genitourinary: No Symptoms Reported Musculoskeletal: No Symptoms Reported Skin: Rash Neurological: No Symptoms Reported Physical Exam Vital Signs: Vital Signs Temperature 98.5 F Temperature 99.5 F Pulse Rate [Bilateral Radial] 71 Pulse Rate [Bilateral Radial] 92 Respiratory Rate 20 Respiratory Rate 20 Blood Pressure [Left Arm] 146/80 Blood Pressure [Left Arm] 132/62 O2 Sat by Pulse Oximetry 100 O2 Sat by Pulse Oximetry 99 Oriented: Normal Eyes: Normal Ear: Normal Nose: Normal Throat: Normal Respiratory: Clear Throughout Cardiovascular: Normal : Normal Auscultation: Bowel Sounds: Normal Palpation: Normal Tenderness: Normal Skin: Rash Musculoskeletal: Leg (3+ Bilateral lower extremity edema) Psychiatric: Normal Mood Description: Calm and Appropriate Affect: Normal Speech Pattern: Clear and Appropriate Assessment/Plan (1) Anasarca: Narrative Support Text: IV lasix 40mg daily Status: Acute (2) Bilateral edema of lower extremity: Status: Acute (3) Scabies: Status: Acute Plan: Order permethrin cream x 1 Review H&P Reviewed: Yes Patient was examined?: Yes
[2022-12-15 06:39] LABS: BASOPHILS % (AUTO) 0.3 % (0.2-1.0); EOSINOPHILS # (AUTO) 0.4 x10^3/uL (0.0-0.2); EOSINOPHILS % (AUTO) 6.4 % (0.9-2.9); HEMATOCRIT 28.9 % (42.0-54.0); LYMPHOCYTES # (AUTO) 1.1 X10^3/uL (1.3-2.9); LYMPHOCYTES % (AUTO) 15.7 % (21.0-51.0); MEAN CORPUSCULAR HEMOGLOBIN 32.9 pg (27.0-34.0); MEAN CORPUSCULAR HGB CONC 34.8 g/dL (33.0-35.0); MEAN CORPUSCULAR VOLUME 94.6 fL (80.0-100.0); MEAN PLATELET VOLUME 7.7 fL (7.4-11.0); MONOCYTES # (AUTO) 0.6 x10^3/uL (0.3-0.8); MONOCYTES % (AUTO) 8.1 % (0.0-13.0); NEUTROPHILS # (AUTO) 4.7 x10^3/uL (2.2-4.8); NEUTROPHILS % (AUTO) 69.5 % (42.0-75.0); PLATELET COUNT 93 X10^3/uL (150.0-450.0); RED BLOOD COUNT 3.05 X10^6/uL (4.7-6.0); RED CELL DISTRIBUTION WIDTH 14.4 % (11.6-16.5); WHITE BLOOD COUNT 6.8 X10^3/uL (3.6-10.0)
[2022-12-15 06:57] LABS: ALANINE AMINOTRANSFERASE 27 Units/L (12-78); ALBUMIN 1.6 g/dL (3.4-5.0); ALKALINE PHOSPHATASE 84 Units/L (46-116); ASPARTATE AMINO TRANSFERASE 69 Units/L (15-37); BLOOD UREA NITROGEN 12 mg/dL (7-18); CALCIUM 6.8 mg/dL (8.5-10.1); CARBON DIOXIDE 28.2 mmol/L (21-32); CHLORIDE 108 mmol/L (98-107); COR CA(FOR HYPOALB) 8.7 mg/dL (8.5-10.1); CREATININE 1.61 mg/dL (0.70-1.30); GLUCOSE 83 mg/dL (65-99); MAGNESIUM 1.6 mg/dL (2.0-2.9); POTASSIUM 3.3 mmol/L (3.5-5.1); SODIUM 142 mmol/L (136-145); TOTAL PROTEIN 5.5 g/dL (6.4-8.2); eGFR NON BLACK RACES 47 (>60)
--- NOTE | 2022-12-15 08:12 | PCM.PROG ---
Progress Note Progress Note for Day of Date of Exam: 12/14/22 Subjective Subjective: Pt is a 62 year old male presenting admitted with anasarca of the lower extremities. This morning he reports that his swelling is improving. No acute events overnight. Labs: Wbc 7.6, Hgb 9.9, Plt 80, Na 142, K 3.3, Creatinine 1.63, Glucose 93, Venous duplex negative few months ago, Echo (2022): EF 52%. Pt is currently receiving IV lasix 40mg daily. He was treated with permethrin cream for scabies. Replete electrolytes per protocol. He is complaining of some pain and swelling in his right breast, will get U/S to evaluate. Start on daily Rocephin for any developing inflammation or cellulitis. Will consult vascular surgery-Dr Jarrell for further evaluation of lower extremity edema. Will continue to closely monitor and follow up labs in the morning. Past Medical Family Social History Allergies: Allergies No Known Drug Allergies Allergy (Verified 12/15/21 18:25) Review of Systems ROS changes noted: See HPI Vital Signs and I&O's Vital Signs: Vital Signs Temperature 99.3 F Pulse Rate [Bilateral Radial] 109 Respiratory Rate 20 Blood Pressure [Left Arm] 123/60 O2 Sat by Pulse Oximetry 93 Intake and Output: Intake & Output 12/12/22 12/13/22 12/14/22 12/15/22 23:59 23:59 23:59 23:59 Intake Total 240 / 240 1480 / 1480 0 / 0 Output Total 750 / 750 300 / 300 400 / 400 Balance -510 / -510 1180 / 1180 -400 / -400 Physical Exam Oriented: Normal Eyes: Normal Ear: Normal Nose: Normal Throat: Normal Cardiovascular: Normal : Normal Auscultation: Bowel Sounds: Normal Tenderness: Normal Skin: Rash Musculoskeletal: Leg (2+ Bilateral lower extremity edema) Psychiatric: Normal Mood Description: Calm and Appropriate Affect: Normal Speech Pattern: Clear and Appropriate Laboratory and Diagnostics Result Diagrams: 12/15/22 05:20 12/15/22 05:20 Labs: Laboratory WBC 6.8 X10^3/uL (3.6-10.0) 12/15/22 05:20 RBC 3.05 X10^6/uL (4.7-6.0) L 12/15/22 05:20 Hgb 10.0 g/dL (13.5-18.0) L 12/15/22 05:20 Hct 28.9 % (42.0-54.0) L 12/15/22 05:20 MCV 94.6 fL (80.0-100.0) 12/15/22 05:20 MCH 32.9 pg (27.0-34.0) 12/15/22 05:20 MCHC 34.8 g/dL (33.0-35.0) 12/15/22 05:20 RDW 14.4 % (11.6-16.5) 12/15/22 05:20 Plt Count 93 X10^3/uL (150.0-450.0) L 12/15/22 05:20 MPV 7.7 fL (7.4-11.0) 12/15/22 05:20 Neut % (Auto) 69.5 % (42.0-75.0) 12/15/22 05:20 Lymph % (Auto) 15.7 % (21.0-51.0) L 12/15/22 05:20 [place] % (Auto) 8.1 % (0.0-13.0) 12/15/22 05:20 Eos % (Auto) 6.4 % (0.9-2.9) H 12/15/22 05:20 Baso % (Auto) 0.3 % (0.2-1.0) 12/15/22 05:20 Neut # (Auto) 4.7 x10^3/uL (2.2-4.8) 12/15/22 05:20 Lymph # (Auto) 1.1 X10^3/uL (1.3-2.9) L 12/15/22 05:20 [place] # (Auto) 0.6 x10^3/uL (0.3-0.8) 12/15/22 05:20 Eos # (Auto) 0.4 x10^3/uL (0.0-0.2) H 12/15/22 05:20 Baso # (Auto) 0.0 X10^3/uL (0.0-0.1) 12/15/22 05:20 Absolute Nucleated RBC 0.2 /100WBC 12/15/22 05:20 Sodium 142 mmol/L (136-145) 12/15/22 05:20 Corrected Sodium TNP 12/15/22 05:20 Potassium 3.3 mmol/L (3.5-5.1) L 12/15/22 05:20 Chloride 108 mmol/L (98-107) H 12/15/22 05:20 Carbon Dioxide 28.2 mmol/L (21-32) 12/15/22 05:20 BUN 12 mg/dL (7-18) 12/15/22 05:20 Creatinine 1.61 mg/dL (0.70-1.30) H 12/15/22 05:20 Est GFR (MDRD) Af Amer 57 (>60) L 12/15/22 05:20 Est GFR (MDRD) Non-Af 47 (>60) L 12/15/22 05:20 Glucose 83 mg/dL (65-99) 12/15/22 05:20 POC Glucose (mg/dL) 84 mg/dL (65-99) 12/15/22 05:36 Calcium 6.8 mg/dL (8.5-10.1) L 12/15/22 05:20 Corrected Calcium 8.7 mg/dL (8.5-10.1) 12/15/22 05:20 Magnesium 1.6 mg/dL (2.0-2.9) L 12/15/22 05:20 Total Bilirubin 1.40 mg/dL (0.2-1.0) H 12/15/22 05:20 AST 69 Units/L (15-37) H 12/15/22 05:20 ALT 27 Units/L (12-78) 12/15/22 05:20 Alkaline Phosphatase 84 Units/L (46-116) 12/15/22 05:20 B-Natriuretic Peptide 131 pg/mL (0-79) H 12/13/22 12:58 Total Protein 5.5 g/dL (6.4-8.2) L 12/15/22 05:20 Albumin 1.6 g/dL (3.4-5.0) L 12/15/22 05:20 Globulin 3.9 g/dL (2.5-4.5) 12/15/22 05:20 Albumin/Globulin Ratio 0.4 Ratio (1.1-2.1) L 12/15/22 05:20 Lipase 57 Units/L (73-393) L 12/13/22 12:58 Specimen Type Random urine 12/13/22 13:57 Urine Color Straw (YELLOW) 12/13/22 13:57 Urine Appearance Clear (CLEAR) 12/13/22 13:57 Urine pH 6.0 (5.0 - 8.0) 12/13/22 13:57 Ur Specific [place] 1.015 (1.000-1.030) 12/13/22 13:57 Urine Protein Negative (NEGATIVE) 12/13/22 13:57 Urine Glucose (UA) Negative (NEGATIVE) 12/13/22 13:57 Urine Ketones Negative (NEGATIVE) 12/13/22 13:57 Urine Blood Negative (NEGATIVE) 12/13/22 13:57 Urine Nitrite Negative (NEGATIVE) 12/13/22 13:57 Urine Bilirubin Negative (NEGATIVE) 12/13/22 13:57 Urine Urobilinogen Normal (NORMAL) 12/13/22 13:57 Ur Leukocyte Esterase Negative (NEGATIVE) 12/13/22 13:57 Plan (1) Anasarca: Status: Acute (2) Bilateral edema of lower extremity: Status: Acute (3) Scabies: Status: Acute Plan: Order permethrin cream x 1 (4) Chronic kidney disease: Status: Acute
[2022-12-15] MEDS ORDERED: BENADRYL CAP 50 MG PO ONE (08:30)
[2022-12-15] MEDS: FLOMAX PO SCH (09:49)
[2022-12-15] MEDS: ELIMITE TOPICAL CREAM TOP SCH (09:49)
[2022-12-15] MEDS: ROCEPHIN VIAL 1 GRAM 1 G in NS 100 ML IV 100 ML IV SCH (09:49)
--- NOTE | 2022-12-15 12:19 | DR.CONSULT ---
CONSULT Consultation for Day of: Date: 12/15/22 Chief Complaint Chief Complaint: Swelling of legs and ulceration to left lateral ankle . Allergies Allergies Allergy/AdvReac Type Severity Reaction Status Date / Time No Known Drug Allergies Allergy Verified 12/15/21 18:25 History of Present Illness History of Present Illness: Patietn with history of CHF, diabetes and hypertension who has significant swelling of the LE with rash( being treated for possible scabies ) He has had swelling of his legs fort a long time and is reported to be non compliant with treatment. Past Medical History Past Medical History: CHF, Diabetes and Hypertension Past Surgical History Surgical History: Abdominal Surgery Family History Family Medical History: Diabetes Mellitus Social History Does patient currently use any type of tobacco product: No Have you used tobacco products in the last 12 months: Yes Type of Tobacco Use: Cigarettes How many years tobacco product used: 40 Does any household member use tobacco: No Alcohol Use: None Medications Home Medications: No Known Drug Allergies Allergy (Verified 12/15/21 18:25) CONTINUE taking the following medications NK 12/13/22 [History] Review of Systems Constitutional: See HPI Eyes: No Symptoms Reported ENT: No Symptoms Reported Respiratory: No Symptoms Reported Cardiovascular: No Symptoms Reported Gastrointestinal: No Symptoms Reported Genitourinary: No Symptoms Reported Musculoskeletal: No Symptoms Reported Skin: See HPI Neurological: No Symptoms Reported Physical Exam Vital Signs: Vital Signs Temperature 98.3 F Pulse Rate [Bilateral Radial] 86 Respiratory Rate 20 Blood Pressure [Left Arm] 136/70 O2 Sat by Pulse Oximetry 95 Oriented: Normal, Time, Person and Place Eyes: Normal Ear: Normal Nose: Normal Throat: Normal Respiratory: Clear Throughout Cardiovascular: Normal : Normal Auscultation: Bowel Sounds: Normal Palpation: Normal Tenderness: Normal Skin: Other (Multiple small red raised areas of both legs consistent with possible scabies versus maculopapular rash. Patient has a chronic 3 cm dry ulceration to left lateral ankle ) Musculoskeletal: Normal Psychiatric: Normal Mood Description: Calm Affect: Normal Speech Pattern: Clear Plan (1) Anasarca: Status: Acute (2) Bilateral edema of lower extremity: Status: Acute Plan: Doubt Venous Thrombosis. This is consistent with venous insufficiency versus his heart failure. Will obtain lower extremity venous insufficiency studies to rule out the Venous Thrombosis and to see if insufficiency is the cause. Will probably need some type of compressive wrap like an unna boot in the future. (3) Scabies: Status: Acute (4) Chronic kidney disease: Status: Acute
[2022-12-15] MEDS: K-DUR TAB 20 MEQ PO SCH ×2 (19:07→20:21)
[2022-12-15] MEDS: MAG-OX TAB PO SCH ×2 (19:07→20:34)
--- NOTE | 2022-12-15 19:47 | PCM.PROG ---
Progress Note Progress Note for Day of Date of Exam: 12/15/22 Subjective Subjective: Pt is a 62 year old male presenting admitted with anasarca of the lower extremities. This morning reports feeling a little better. No acute events overnight. I did encourage him to get out of bed and sit in recliner. Labs: Wbc 6.8, Hgb 10, Plt 93, Na 142, K 3.3, Creatinine 1.61, Glucose 83, Venous duplex negative few months ago, Echo (2022): EF 52%. Pt is currently receiving IV lasix 40mg daily. He was treated with permethrin cream for scabies. Replete electrolytes per protocol. Pt was complaining of some pain and swelling in his right breast, U/S revealed non-specific inflammation/edema. He is on daily Rocephin for cellulitis. Consulted vascular surgery-Dr Jarrell for further evaluation of lower extremity edema, possible venous insufficiency. Otherwise, will continue with current treatment plan. Will continue to closely monitor and follow up labs in the morning. Past Medical Family Social History Allergies: Allergies No Known Drug Allergies Allergy (Verified 12/15/21 18:25) Review of Systems ROS changes noted: See HPI Vital Signs and I&O's Vital Signs: Vital Signs Temperature 99.9 F Temperature 98.5 F Pulse Rate [Bilateral Radial] 97 Pulse Rate [Bilateral Radial] 78 Respiratory Rate 20 Respiratory Rate 20 Blood Pressure [Left Arm] 125/74 Blood Pressure [Left Arm] 137/73 O2 Sat by Pulse Oximetry 95 O2 Sat by Pulse Oximetry 98 Intake and Output: Intake & Output 12/12/22 12/13/22 12/14/22 12/15/22 23:59 23:59 23:59 23:59 Intake Total 240 / 240 1480 / 1480 1140 / 1140 Output Total 750 / 750 300 / 300 700 / 700 Balance -510 / -510 1180 / 1180 440 / 440 Physical Exam Oriented: Normal, Time, Person and Place Eyes: Normal Ear: Normal Nose: Normal Throat: Normal Cardiovascular: Normal : Normal Auscultation: Bowel Sounds: Normal Tenderness: Normal Skin: Other (Multiple small red raised areas of both legs consistent with possible scabies versus maculopapular rash. Patient has a chronic 3 cm dry ulceration to left lateral ankle ) Musculoskeletal: Normal Psychiatric: Normal Mood Description: Calm Affect: Normal Speech Pattern: Clear Laboratory and Diagnostics Result Diagrams: 12/15/22 05:20 12/15/22 05:20 Labs: Laboratory WBC 6.8 X10^3/uL (3.6-10.0) 12/15/22 05:20 RBC 3.05 X10^6/uL (4.7-6.0) L 12/15/22 05:20 Hgb 10.0 g/dL (13.5-18.0) L 12/15/22 05:20 Hct 28.9 % (42.0-54.0) L 12/15/22 05:20 MCV 94.6 fL (80.0-100.0) 12/15/22 05:20 MCH 32.9 pg (27.0-34.0) 12/15/22 05:20 MCHC 34.8 g/dL (33.0-35.0) 12/15/22 05:20 RDW 14.4 % (11.6-16.5) 12/15/22 05:20 Plt Count 93 X10^3/uL (150.0-450.0) L 12/15/22 05:20 MPV 7.7 fL (7.4-11.0) 12/15/22 05:20 Neut % (Auto) 69.5 % (42.0-75.0) 12/15/22 05:20 Lymph % (Auto) 15.7 % (21.0-51.0) L 12/15/22 05:20 [place] % (Auto) 8.1 % (0.0-13.0) 12/15/22 05:20 Eos % (Auto) 6.4 % (0.9-2.9) H 12/15/22 05:20 Baso % (Auto) 0.3 % (0.2-1.0) 12/15/22 05:20 Neut # (Auto) 4.7 x10^3/uL (2.2-4.8) 12/15/22 05:20 Lymph # (Auto) 1.1 X10^3/uL (1.3-2.9) L 12/15/22 05:20 [place] # (Auto) 0.6 x10^3/uL (0.3-0.8) 12/15/22 05:20 Eos # (Auto) 0.4 x10^3/uL (0.0-0.2) H 12/15/22 05:20 Baso # (Auto) 0.0 X10^3/uL (0.0-0.1) 12/15/22 05:20 Absolute Nucleated RBC 0.2 /100WBC 12/15/22 05:20 Sodium 142 mmol/L (136-145) 12/15/22 05:20 Corrected Sodium TNP 12/15/22 05:20 Potassium 3.3 mmol/L (3.5-5.1) L 12/15/22 05:20 Chloride 108 mmol/L (98-107) H 12/15/22 05:20 Carbon Dioxide 28.2 mmol/L (21-32) 12/15/22 05:20 BUN 12 mg/dL (7-18) 12/15/22 05:20 Creatinine 1.61 mg/dL (0.70-1.30) H 12/15/22 05:20 Est GFR (MDRD) Af Amer 57 (>60) L 12/15/22 05:20 Est GFR (MDRD) Non-Af 47 (>60) L 12/15/22 05:20 Glucose 83 mg/dL (65-99) 12/15/22 05:20 POC Glucose (mg/dL) 136 mg/dL (65-99) H 12/15/22 16:51 Calcium 6.8 mg/dL (8.5-10.1) L 12/15/22 05:20 Corrected Calcium 8.7 mg/dL (8.5-10.1) 12/15/22 05:20 Magnesium 1.6 mg/dL (2.0-2.9) L 12/15/22 05:20 Total Bilirubin 1.40 mg/dL (0.2-1.0) H 12/15/22 05:20 AST 69 Units/L (15-37) H 12/15/22 05:20 ALT 27 Units/L (12-78) 12/15/22 05:20 Alkaline Phosphatase 84 Units/L (46-116) 12/15/22 05:20 B-Natriuretic Peptide 131 pg/mL (0-79) H 12/13/22 12:58 Total Protein 5.5 g/dL (6.4-8.2) L 12/15/22 05:20 Albumin 1.6 g/dL (3.4-5.0) L 12/15/22 05:20 Globulin 3.9 g/dL (2.5-4.5) 12/15/22 05:20 Albumin/Globulin Ratio 0.4 Ratio (1.1-2.1) L 12/15/22 05:20 Lipase 57 Units/L (73-393) L 12/13/22 12:58 Specimen Type Random urine 12/13/22 13:57 Urine Color Straw (YELLOW) 12/13/22 13:57 Urine Appearance Clear (CLEAR) 12/13/22 13:57 Urine pH 6.0 (5.0 - 8.0) 12/13/22 13:57 Ur Specific [place] 1.015 (1.000-1.030) 12/13/22 13:57 Urine Protein Negative (NEGATIVE) 12/13/22 13:57 Urine Glucose (UA) Negative (NEGATIVE) 12/13/22 13:57 Urine Ketones Negative (NEGATIVE) 12/13/22 13:57 Urine Blood Negative (NEGATIVE) 12/13/22 13:57 Urine Nitrite Negative (NEGATIVE) 12/13/22 13:57 Urine Bilirubin Negative (NEGATIVE) 12/13/22 13:57 Urine Urobilinogen Normal (NORMAL) 12/13/22 13:57 Ur Leukocyte Esterase Negative (NEGATIVE) 12/13/22 13:57 Plan (1) Anasarca: Status: Acute (2) Bilateral edema of lower extremity: Status: Acute (3) Scabies: Status: Acute Plan: Order permethrin cream x 1 (4) Chronic kidney disease: Status: Acute
[2022-12-15] MEDS: ATARAX TAB 25 MG PO PRN (20:21)
[2022-12-16 06:26] LABS: BASOPHILS % (AUTO) 0.5 % (0.2-1.0); EOSINOPHILS # (AUTO) 0.5 x10^3/uL (0.0-0.2); HEMATOCRIT 29.2 % (42.0-54.0); HEMOGLOBIN 10.2 g/dL (13.5-18.0); LYMPHOCYTES # (AUTO) 1.1 X10^3/uL (1.3-2.9); LYMPHOCYTES % (AUTO) 15.7 % (21.0-51.0); MEAN CORPUSCULAR HEMOGLOBIN 33.1 pg (27.0-34.0); MEAN CORPUSCULAR HGB CONC 35.1 g/dL (33.0-35.0); MEAN CORPUSCULAR VOLUME 94.5 fL (80.0-100.0); MEAN PLATELET VOLUME 7.7 fL (7.4-11.0); MONOCYTES # (AUTO) 0.7 x10^3/uL (0.3-0.8); MONOCYTES % (AUTO) 9.5 % (0.0-13.0); NEUTROPHILS # (AUTO) 4.7 x10^3/uL (2.2-4.8); NEUTROPHILS % (AUTO) 67.3 % (42.0-75.0); PLATELET COUNT 90 X10^3/uL (150.0-450.0); RED BLOOD COUNT 3.09 X10^6/uL (4.7-6.0); RED CELL DISTRIBUTION WIDTH 14.4 % (11.6-16.5)
[2022-12-16 06:48] LABS: ALBUMIN 1.7 g/dL (3.4-5.0); CALCIUM 7.1 mg/dL (8.5-10.1); CARBON DIOXIDE 25.8 mmol/L (21-32); COR CA(FOR HYPOALB) 8.9 mg/dL (8.5-10.1); CREATININE 1.6 mg/dL (0.70-1.30); POTASSIUM 3.5 mmol/L (3.5-5.1); TOTAL PROTEIN 5.9 g/dL (6.4-8.2)
[2022-12-16] MEDS ORDERED: CONSULT PHARMACY - POTASSIUM & MAGNESIUM XX SCH (07:00)
[2022-12-16] MEDS ORDERED: POTASSIUM CHLORIDE LIQ PO SCH (08:00)
[2022-12-16] MEDS: FLOMAX PO SCH (09:43)
[2022-12-16] MEDS: ROCEPHIN VIAL 1 GRAM 1 G in NS 100 ML IV 100 ML IV SCH (09:43)
[2022-12-16] MEDS: ELIMITE TOPICAL CREAM TOP SCH (09:43)
[2022-12-16] MEDS ORDERED: ALBUMIN HUMAN 25%- 100 ML 100 ML ONE (13:23)
[2022-12-16] MEDS: DIFLUCAN PO SCH (13:31)
[2022-12-16] MEDS: ALBUMIN HUMAN 25%- 100 ML 100 ML IV SCH (13:31)
[2022-12-16] MEDS: LASIX PO SCH (16:39)
[2022-12-16] MEDS: ATARAX TAB 25 MG PO PRN (21:17)
--- NOTE | 2022-12-16 23:21 | NOTE.SOAP ---
Soap Note Note for Day of Date of Exam: 12/16/22 Subjective Data Subjective Data: patient still with significant swelling of legs. Objective Data Temperature: 98.2 F Pulse Rate: 95 Respiratory Rate: 22 Blood Pressure: 169/88 O2 Sat by Pulse Oximetry: 97 Objective Data: No changes in the wounds. Venous insufficiency study shows bilateral deep venous insufficiency, right greater saphenous vein insufficiency and left small saphenous vein insufficiency . Assessment Assessment: bilateral lower extremity venous insufficiency Plan Plan: as per medical service. Would consider in a boot therapy .
[2022-12-17 06:38] LABS: BASOPHILS % (AUTO) 0.3 % (0.2-1.0); EOSINOPHILS # (AUTO) 0.5 x10^3/uL (0.0-0.2); EOSINOPHILS % (AUTO) 9.1 % (0.9-2.9); HEMATOCRIT 28.1 % (42.0-54.0); HEMOGLOBIN 9.8 g/dL (13.5-18.0); LYMPHOCYTES # (AUTO) 0.9 X10^3/uL (1.3-2.9); LYMPHOCYTES % (AUTO) 17.8 % (21.0-51.0); MEAN CORPUSCULAR HEMOGLOBIN 33.1 pg (27.0-34.0); MEAN CORPUSCULAR VOLUME 94.5 fL (80.0-100.0); MEAN PLATELET VOLUME 7.9 fL (7.4-11.0); MONOCYTES # (AUTO) 0.5 x10^3/uL (0.3-0.8); MONOCYTES % (AUTO) 9.4 % (0.0-13.0); NEUTROPHILS # (AUTO) 3.2 x10^3/uL (2.2-4.8); NEUTROPHILS % (AUTO) 63.4 % (42.0-75.0); PLATELET COUNT 87 X10^3/uL (150.0-450.0); RED BLOOD COUNT 2.97 X10^6/uL (4.7-6.0); RED CELL DISTRIBUTION WIDTH 14.7 % (11.6-16.5)
[2022-12-17 06:54] LABS: ALANINE AMINOTRANSFERASE 28 Units/L (12-78); ALBUMIN 1.6 g/dL (3.4-5.0); ALKALINE PHOSPHATASE 94 Units/L (46-116); ASPARTATE AMINO TRANSFERASE 66 Units/L (15-37); BLOOD UREA NITROGEN 12 mg/dL (7-18); CALCIUM 7.1 mg/dL (8.5-10.1); CARBON DIOXIDE 27.6 mmol/L (21-32); CHLORIDE 108 mmol/L (98-107); COR NA(FOR HYPERGLY) 142 mmol/L (136-145); CREATININE 1.43 mg/dL (0.70-1.30); GLUCOSE 133 mg/dL (65-99); POTASSIUM 3.2 mmol/L (3.5-5.1); SODIUM 141 mmol/L (136-145); TOTAL PROTEIN 5.7 g/dL (6.4-8.2); eGFR NON BLACK RACES 54 (>60)
[2022-12-17] MEDS ORDERED: CONSULT PHARMACY - POTASSIUM & MAGNESIUM XX SCH ×2 (08:00)
[2022-12-17] MEDS: ROCEPHIN VIAL 1 GRAM 1 G in NS 100 ML IV 100 ML IV SCH (08:33)
[2022-12-17] MEDS: LASIX PO SCH (08:35)
[2022-12-17] MEDS: DIFLUCAN PO SCH (08:35)
[2022-12-17] MEDS: ATARAX TAB 25 MG PO PRN ×2 (08:35→20:16)
[2022-12-17] MEDS: ALBUMIN HUMAN 25%- 100 ML 100 ML IV SCH (08:37)
[2022-12-17] MEDS: POTASSIUM CHLORIDE LIQ PO SCH ×2 (08:38→10:15)
[2022-12-17] MEDS: MAG-OX TAB PO SCH ×2 (08:46→10:15)
[2022-12-17] MEDS: ELIMITE TOPICAL CREAM TOP SCH (08:47)
[2022-12-17] MEDS: FLOMAX PO SCH (09:00)
[2022-12-17] MEDS ORDERED: IVERMECTIN PO ONE (10:13)
[2022-12-17] MEDS: MILK OF MAGNESIA PO SCH ×2 (13:38→20:16)
[2022-12-18 06:04] LABS: BASOPHILS % (AUTO) 0.5 % (0.2-1.0); EOSINOPHILS # (AUTO) 0.3 x10^3/uL (0.0-0.2); EOSINOPHILS % (AUTO) 7.4 % (0.9-2.9); HEMATOCRIT 27.1 % (42.0-54.0); HEMOGLOBIN 9.5 g/dL (13.5-18.0); LYMPHOCYTES # (AUTO) 0.9 X10^3/uL (1.3-2.9); LYMPHOCYTES % (AUTO) 18.8 % (21.0-51.0); MEAN CORPUSCULAR VOLUME 94.3 fL (80.0-100.0); MEAN PLATELET VOLUME 8.1 fL (7.4-11.0); MONOCYTES # (AUTO) 0.5 x10^3/uL (0.3-0.8); MONOCYTES % (AUTO) 10.1 % (0.0-13.0); NEUTROPHILS % (AUTO) 63.2 % (42.0-75.0); PLATELET COUNT 86 X10^3/uL (150.0-450.0); RED BLOOD COUNT 2.87 X10^6/uL (4.7-6.0); RED CELL DISTRIBUTION WIDTH 14.2 % (11.6-16.5); WHITE BLOOD COUNT 4.7 X10^3/uL (3.6-10.0)
[2022-12-18 06:23] LABS: ALANINE AMINOTRANSFERASE 29 Units/L (12-78); ALBUMIN 1.8 g/dL (3.4-5.0); ALKALINE PHOSPHATASE 88 Units/L (46-116); ASPARTATE AMINO TRANSFERASE 65 Units/L (15-37); BLOOD UREA NITROGEN 10 mg/dL (7-18); CALCIUM 7.2 mg/dL (8.5-10.1); CARBON DIOXIDE 28.6 mmol/L (21-32); CHLORIDE 109 mmol/L (98-107); CREATININE 1.39 mg/dL (0.70-1.30); GLUCOSE 94 mg/dL (65-99); POTASSIUM 3.3 mmol/L (3.5-5.1); SODIUM 143 mmol/L (136-145); TOTAL PROTEIN 5.8 g/dL (6.4-8.2); eGFR NON BLACK RACES 55 (>60)
[2022-12-18] MEDS ORDERED: CONSULT PHARMACY - POTASSIUM & MAGNESIUM XX SCH (07:00)
[2022-12-18] MEDS: ROCEPHIN VIAL 1 GRAM 1 G in NS 100 ML IV 100 ML IV SCH (09:35)
[2022-12-18] MEDS: ALBUMIN HUMAN 25%- 100 ML 100 ML IV SCH (09:36)
[2022-12-18] MEDS: MAG-OX TAB PO SCH ×2 (09:37→21:47)
[2022-12-18] MEDS: FLOMAX PO SCH (09:37)
[2022-12-18] MEDS: DIFLUCAN PO SCH (09:38)
[2022-12-18] MEDS: KLOR-CON PO SCH ×2 (09:38→20:50)
[2022-12-18] MEDS: MILK OF MAGNESIA PO SCH ×2 (09:53→20:50)
[2022-12-18] MEDS: LASIX PO SCH (11:03)
[2022-12-18] MEDS: ELIMITE TOPICAL CREAM TOP SCH (11:03)
--- NOTE | 2022-12-18 22:35 | NOTE.SOAP ---
Soap Note Note for Day of Date of Exam: 12/17/22 Subjective Data Subjective Data: Patient still with swelling of legs. Treated for scabies. Ulcer is chronic and stable. Objective Data Temperature: 98.9 F Pulse Rate: 101 Respiratory Rate: 18 Blood Pressure: 143/84 O2 Sat by Pulse Oximetry: 96 Objective Data: Ulcer of leg , stable. Assessment Assessment: LE venous insufficiency with chronic ulcer of leg. Plan Plan: Patient may be discharged from my standpoint. F/U in my office and I will start unna boot compressive therapy.
[2022-12-19] MEDS: ATARAX TAB 25 MG PO PRN (01:31)
[2022-12-19 01:42] VITALS: O2SAT 95
[2022-12-19 06:25] LABS: BASOPHILS % (AUTO) 0.3 % (0.2-1.0); EOSINOPHILS # (AUTO) 0.3 x10^3/uL (0.0-0.2); EOSINOPHILS % (AUTO) 8.2 % (0.9-2.9); HEMATOCRIT 27.5 % (42.0-54.0); HEMOGLOBIN 9.5 g/dL (13.5-18.0); LYMPHOCYTES # (AUTO) 0.8 X10^3/uL (1.3-2.9); LYMPHOCYTES % (AUTO) 18.7 % (21.0-51.0); MEAN CORPUSCULAR HEMOGLOBIN 32.8 pg (27.0-34.0); MEAN CORPUSCULAR HGB CONC 34.7 g/dL (33.0-35.0); MEAN CORPUSCULAR VOLUME 94.5 fL (80.0-100.0); MEAN PLATELET VOLUME 7.9 fL (7.4-11.0); MONOCYTES # (AUTO) 0.4 x10^3/uL (0.3-0.8); MONOCYTES % (AUTO) 8.6 % (0.0-13.0); NEUTROPHILS # (AUTO) 2.7 x10^3/uL (2.2-4.8); NEUTROPHILS % (AUTO) 64.2 % (42.0-75.0); PLATELET COUNT 75 X10^3/uL (150.0-450.0); RED BLOOD COUNT 2.91 X10^6/uL (4.7-6.0); RED CELL DISTRIBUTION WIDTH 14.5 % (11.6-16.5); WHITE BLOOD COUNT 4.2 X10^3/uL (3.6-10.0)
[2022-12-19 06:56] LABS: ALANINE AMINOTRANSFERASE 27 Units/L (12-78); ALBUMIN 2.1 g/dL (3.4-5.0); ALKALINE PHOSPHATASE 93 Units/L (46-116); ASPARTATE AMINO TRANSFERASE 64 Units/L (15-37); BLOOD UREA NITROGEN 11 mg/dL (7-18); CALCIUM 7.3 mg/dL (8.5-10.1); CARBON DIOXIDE 26.8 mmol/L (21-32); CHLORIDE 109 mmol/L (98-107); COR CA(FOR HYPOALB) 8.8 mg/dL (8.5-10.1); CREATININE 1.28 mg/dL (0.70-1.30); GLUCOSE 97 mg/dL (65-99); POTASSIUM 3.1 mmol/L (3.5-5.1); SODIUM 142 mmol/L (136-145); TOTAL PROTEIN 5.7 g/dL (6.4-8.2); eGFR NON BLACK RACES > 60 (>60)
[2022-12-19 07:46] VITALS: BP 163/79; PULSE 100; RESP 20; TEMP 98.1
[2022-12-19] MEDS ORDERED: CONSULT PHARMACY - POTASSIUM & MAGNESIUM XX SCH (08:00)
--- NOTE | 2022-12-19 08:28 | PCM.PROG ---
Progress Note Progress Note for Day of Date of Exam: 12/18/22 Subjective Subjective: Pt is a 62 year old male presenting admitted with anasarca and venous insufficiency of the lower extremities with chronic ulcer. This morning he is resting in comfortably in bed. No acute events overnight. Labs: Wbc 4.7, Hgb 9.5, Plt 86, Na 143, K 3.3, Creatinine 1.39, Glucose 94, Pt is currently receiving PO lasix 40mg daily, flomax, and IV albumin. Lower extremity edema improved. He is being treated with diflucan and rocephin for tinea and cellulitis. Hypokalemia on labs. Replete electrolytes per protocol. Vascular surgery-Dr Jarrell- recommend outpatient follow up for venous insufficiency with chronic ulcer and will place unna boot at that time. Otherwise, will continue with current treatment plan. Will continue to closely monitor and follow up labs in the morning. Past Medical Family Social History Allergies: Allergies No Known Drug Allergies Allergy (Verified 12/15/21 18:25) Review of Systems ROS changes noted: see HPI Vital Signs and I&O's Vital Signs: Vital Signs Temperature 98.1 F Temperature 98.3 F Pulse Rate [Bilateral Radial] 100 Pulse Rate [Bilateral Radial] 93 Respiratory Rate 20 Respiratory Rate 18 Blood Pressure [Left Arm] 163/79 Blood Pressure [Left Arm] 135/65 O2 Sat by Pulse Oximetry 95 O2 Sat by Pulse Oximetry 95 Intake and Output: Intake & Output 12/16/22 12/17/22 12/18/22 12/19/22 23:59 23:59 23:59 23:59 Intake Total 1860 / 1860 2580 / 2580 2457 / 2457 220 / 220 Output Total 1100 / 1100 1450 / 1450 2450 / 2450 500 / 500 Balance 760 / 760 1130 / 1130 -280 / -280 Physical Exam Oriented: Normal, Time, Person and Place Eyes: Normal Ear: Normal Nose: Normal Throat: Normal Cardiovascular: Normal : Normal Auscultation: Bowel Sounds: Normal Tenderness: Normal Skin: Other (Multiple small red raised areas of both legs consistent with possible scabies versus maculopapular rash. Patient has a chronic 3 cm dry ulceration to left lateral ankle ) Musculoskeletal: Normal Psychiatric: Normal Mood Description: Calm Affect: Normal Speech Pattern: Clear and Appropriate Laboratory and Diagnostics Result Diagrams: 12/19/22 05:45 12/19/22 05:45 Labs: Laboratory WBC 4.2 X10^3/uL (3.6-10.0) 12/19/22 05:45 RBC 2.91 X10^6/uL (4.7-6.0) L 12/19/22 05:45 Hgb 9.5 g/dL (13.5-18.0) L 12/19/22 05:45 Hct 27.5 % (42.0-54.0) L 12/19/22 05:45 MCV 94.5 fL (80.0-100.0) 12/19/22 05:45 MCH 32.8 pg (27.0-34.0) 12/19/22 05:45 MCHC 34.7 g/dL (33.0-35.0) 12/19/22 05:45 RDW 14.5 % (11.6-16.5) 12/19/22 05:45 Plt Count 75 X10^3/uL (150.0-450.0) L 12/19/22 05:45 MPV 7.9 fL (7.4-11.0) 12/19/22 05:45 Neut % (Auto) 64.2 % (42.0-75.0) 12/19/22 05:45 Lymph % (Auto) 18.7 % (21.0-51.0) L 12/19/22 05:45 [place] % (Auto) 8.6 % (0.0-13.0) 12/19/22 05:45 Eos % (Auto) 8.2 % (0.9-2.9) H 12/19/22 05:45 Baso % (Auto) 0.3 % (0.2-1.0) 12/19/22 05:45 Neut # (Auto) 2.7 x10^3/uL (2.2-4.8) 12/19/22 05:45 Lymph # (Auto) 0.8 X10^3/uL (1.3-2.9) L 12/19/22 05:45 [place] # (Auto) 0.4 x10^3/uL (0.3-0.8) 12/19/22 05:45 Eos # (Auto) 0.3 x10^3/uL (0.0-0.2) H 12/19/22 05:45 Baso # (Auto) 0.0 X10^3/uL (0.0-0.1) 12/19/22 05:45 Absolute Nucleated RBC 0.1 /100WBC 12/19/22 05:45 Sodium 142 mmol/L (136-145) 12/19/22 05:45 Corrected Sodium TNP 12/19/22 05:45 Potassium 3.1 mmol/L (3.5-5.1) L 12/19/22 05:45 Chloride 109 mmol/L (98-107) H 12/19/22 05:45 Carbon Dioxide 26.8 mmol/L (21-32) 12/19/22 05:45 BUN 11 mg/dL (7-18) 12/19/22 05:45 Creatinine 1.28 mg/dL (0.70-1.30) 12/19/22 05:45 Est GFR (MDRD) Af Amer > 60 (>60) 12/19/22 05:45 Est GFR (MDRD) Non-Af > 60 (>60) 12/19/22 05:45 Glucose 97 mg/dL (65-99) 12/19/22 05:45 POC Glucose (mg/dL) 89 mg/dL (65-99) 12/19/22 05:35 Calcium 7.3 mg/dL (8.5-10.1) L 12/19/22 05:45 Corrected Calcium 8.8 mg/dL (8.5-10.1) 12/19/22 05:45 Magnesium 2.0 mg/dL (2.0-2.9) 12/19/22 05:45 Total Bilirubin 0.70 mg/dL (0.2-1.0) 12/19/22 05:45 AST 64 Units/L (15-37) H 12/19/22 05:45 ALT 27 Units/L (12-78) 12/19/22 05:45 Alkaline Phosphatase 93 Units/L (46-116) 12/19/22 05:45 B-Natriuretic Peptide 131 pg/mL (0-79) H 12/13/22 12:58 Total Protein 5.7 g/dL (6.4-8.2) L 12/19/22 05:45 Albumin 2.1 g/dL (3.4-5.0) L 12/19/22 05:45 Globulin 3.6 g/dL (2.5-4.5) 12/19/22 05:45 Albumin/Globulin Ratio 0.6 Ratio (1.1-2.1) L 12/19/22 05:45 Lipase 57 Units/L (73-393) L 12/13/22 12:58 Specimen Type Random urine 12/13/22 13:57 Urine Color Straw (YELLOW) 12/13/22 13:57 Urine Appearance Clear (CLEAR) 12/13/22 13:57 Urine pH 6.0 (5.0 - 8.0) 12/13/22 13:57 Ur Specific [place] 1.015 (1.000-1.030) 12/13/22 13:57 Urine Protein Negative (NEGATIVE) 12/13/22 13:57 Urine Glucose (UA) Negative (NEGATIVE) 12/13/22 13:57 Urine Ketones Negative (NEGATIVE) 12/13/22 13:57 Urine Blood Negative (NEGATIVE) 12/13/22 13:57 Urine Nitrite Negative (NEGATIVE) 12/13/22 13:57 Urine Bilirubin Negative (NEGATIVE) 12/13/22 13:57 Urine Urobilinogen Normal (NORMAL) 12/13/22 13:57 Ur Leukocyte Esterase Negative (NEGATIVE) 12/13/22 13:57 Plan (1) Anasarca: Status: Acute (2) Bilateral edema of lower extremity: Status: Acute (3) Scabies: Status: Acute Plan: Order permethrin cream x 1 (4) Chronic kidney disease: Status: Acute
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
[2022-12-19] MEDS ORDERED: KLOR-CON PO SCH (09:00)
[2022-12-19] MEDS: DIFLUCAN PO SCH (09:37)
[2022-12-19] MEDS: MAG-OX TAB PO SCH (09:37)
[2022-12-19] MEDS: FLOMAX PO SCH (09:37)
[2022-12-19] MEDS: LASIX PO SCH (09:37)
[2022-12-19] MEDS: ALBUMIN HUMAN 25%- 100 ML 100 ML IV SCH (09:47)
[2022-12-19] MEDS: MILK OF MAGNESIA PO SCH (09:48)
[2022-12-19] MEDS: ROCEPHIN VIAL 1 GRAM 1 G in NS 100 ML IV 100 ML IV SCH (09:48)
[2022-12-19] MEDS: ELIMITE TOPICAL CREAM TOP SCH (09:48)
== END 2022-12-19 10:45 | disposition home or self-care (01) | DRG 948 ==
LOC: MED/SURG 12:01 → ER 12:01 → OBSVTOIN 15:57 → MED/SURG 16:10
PROVIDERS: ADMIT Family Medicine; ATTEND Family Medicine
DX: Z59.82 Transportation insecurity; B86 Scabies; E83.42 Hypomagnesemia; Z59.86 Financial insecurity; E11.65 Type 2 diabetes mellitus with hyperglycemia; Z59.9 Problem related to housing and economic circumstances, unspecified; I87.2 Venous insufficiency (chronic) (peripheral); I12.9 Hypertensive chronic kidney disease with stage 1 through stage 4 chronic kidney disease, or unspecified chronic kidney disease; N63.11 Unspecified lump in the right breast, upper outer quadrant; E87.6 Hypokalemia; N18.9 Chronic kidney disease, unspecified; R53.1 Weakness; N50.89 Other specified disorders of the male genital organs; R06.02 Shortness of breath; R60.0 Localized edema